=== PATIENT | female | born 1985 | race Caucasian/White ===

== ENCOUNTER 2020-10-03 07:11 | Outpatient (REF) | payer MEDICAID, SELFPAY | END 2020-10-03 07:12 | disposition home or self-care (01) | LOC: HO.LAB 07:11 | PROVIDERS: Visit Provider Internal Medicine | DX: Z20.828 Contact with and (suspected) exposure to other viral communicable diseases (principal) | CPT/HCPCS: C9803; U0003 ==

== ENCOUNTER 2023-07-08 10:00 | Outpatient (REF) | payer MEDICAID, SELFPAY | END 2023-07-08 10:01 | disposition home or self-care (01) | LOC: HO.HHCL 10:00 | PROVIDERS: Visit Provider Family Medicine | DX: Z00.00 Encounter for general adult medical examination without abnormal findings (principal); R19.7 Diarrhea, unspecified; Z11.3 Encounter for screening for infections with a predominantly sexual mode of transmission | CPT/HCPCS: 0353U; 80048; 80061; 80076; 86592; 86803; 87389 ==

== ENCOUNTER 2023-07-28 09:27 | Outpatient (REF) | payer MEDICAID, SELFPAY ==
[2023-07-28 15:31] LABS: CDiff Gene PCR NEGATIVE (Negative)
== END 2023-07-28 09:28 | disposition home or self-care (01) ==
LOC: HO.HHCLNP 09:27
PROVIDERS: Visit Provider Family Medicine
DX: R19.7 Diarrhea, unspecified (principal)
CPT/HCPCS: 87493

== ENCOUNTER 2025-01-05 10:37 | Emergency (ER) | payer MEDICAID, SELFPAY ==
[2025-01-05 10:52] VITALS: BP 113/77; PULSE 105; RESP 18; TEMP 37.2; O2SAT 99; BMI 25.0
--- NOTE | 2025-01-05 10:57 | ED_ITS ---
HPI - General Adult General Chief complaint: General Medical Stated complaint: Sore Throat W/ Abscess Time Seen by Provider: 01/05/25 12:18 Related Data Previous Rx's ?Medication ?Instructions ?Recorded clindamycin HCl 300 mg capsule 300 mg PO Q6H #40 caps 01/05/25 Allergies Allergy/AdvReac Type Severity Reaction Status Date / Time Penicillins [PENICILLINS] Allergy Unknown SWELLING/RA Verified 01/05/25 10:56 [facility] Social History Social History Smoked in Last 30 Days: No Use of substances other than those prescribed or required for medical reasons: No Advance Directives: No Advance Directives Information Provided: Yes Patient : No Physical Exam ED Vital Signs: Vital Signs - 24 hr 01/05/25 10:52 01/05/25 12:09 Temperature 99.0 F 98.1 F Pulse Rate 105 H 100 Respiratory Rate 18 20 Blood Pressure 113/77 134/75 Pulse Oximetry 99 100 Oxygen Delivery Method Room Air Room Air BMI result Body Mass Index 25.0 Course Course Course Narrative: RME performed by Yuliana Puente PA-C. Patient is a 39 year old assigned female at presenting to the emergency department with a sore throat, positive strep test, with left sided tonsilar swelling. Patient was seen in an urgent care and informed she has strep throat with unilateral tonsilar swelling that is causing voice muffeling. Detailed physical exam and review of systems are deferred to the child care associate teacher.Labs ordered. endoscopy tech aware - patient to be brought back [facility]. Medications Administered Discontinued Medications Generic Name Dose Route Start Last Admin Trade Name Mehreen PRN Reason Stop Dose Admin Dexamethasone Sodium Phosphate 10 mg 01/05/25 12:23 01/05/25 12:32 Dexamethasone Sod Phosphate 10 Mg/Ml Vial IVPUSH 01/05/25 12:24 10 mg ONCE ONE Administration Clindamycin Phosphate 300 mg in 50 mls @ 100 mls/hr 01/05/25 12:24 01/05/25 13:23 Cleocin IV 01/05/25 12:53 100 mls/hr ONCE ONE Administration Lidocaine HCl 1 appl 01/05/25 12:24 01/05/25 12:42 Lidocaine Hcl 4 % [id number]-G-Bfs 4 Ml TOPICAL 01/05/25 12:25 1 appl ONCE ONE Administration Medical Decision Making Lab Data 01/05/25 11:13 01/05/25 11:13 Labs: Lab Results 01/05/25 Range/Units 11:13 WBC 13.8 H (4.8-10.8) X10*3/uL RBC 3.95 L (4.20-5.50) X10*6/uL Hgb 12.8 (12.0-16.0) g/dl Hct 36.6 L (37.0-47.0) % MCV 92.7 (80.0-98.0) fL MCH 32.4 (27.0-33.0) pg MCHC 35.0 (31.0-35.0) g/dl RDW 12.8 (11.0-16.0) % Plt Count 249 (160-400) X10*3/uL MPV 10.2 (9.4-12.3) fL Immature Gran % (Auto) 0.6 H (0.0-0.4) % Neut % (Auto) 80.4 H (45-73) % Lymph % (Auto) 12.7 L (20-40) % [place] % (Auto) 5.4 (2-11) % Eos % (Auto) 0.4 (0-4) % Baso % (Auto) 0.5 (0-2) % Lymph # (Auto) 1.8 (1.2-4.9) X10*3/uL [place] # (Auto) 0.8 (0.1-1.2) X10*3/uL Eos # (Auto) 0.1 (0.0-0.4) X10*3/uL Baso # (Auto) 0.1 (0.0-0.2) X10*3/uL Abs Immat Gran (auto) 0.08 H (0.00-0.03) X10*3/uL Absolute Neuts (auto) 11.1 H (2.0-8.3) x10*3/uL Absolute Nucleated RBC 0.000 (0.0-0.012) X10*3/uL Nucleated RBC % (auto) 0.0 (0.0-0.2) /100WBC ESR 54 H (0-20) MM/HR Sodium 142 (135-145) mmol/L Potassium 3.3 (3.3-5.1) mmol/L Chloride 108 (96-108) mmol/L Carbon Dioxide 27 (22-29) mmol/L Anion Gap 10 L (12-20) BUN 8 L (9-16) mg/dL Creatinine 0.61 (0.5-1.4) mg/dL Estim Creat Clear Calc 117.0 Estimated GFR > 60 Random Glucose 90 (60-115) mg/dL Calcium 8.8 (8.4-10.2) mg/dL Magnesium 2.2 (1.6-2.6) mg/dL Total Bilirubin 0.4 (0.0-1.0) mg/dL AST 18 (5-31) U/L ALT 20 (0-31) U/L Alkaline Phosphatase 91 (39-117) U/L C-Reactive Protein 14.70 H (< or = 0.50) mg/dL Total Protein 7.0 (6.5-8.0) g/dL Albumin 3.6 (3.5-5.0) g/dL Beta HCG, Quant < 2 mIU/mL Discharge Plan Discharge Clinical Impression: Abscess, peritonsillar Patient Disposition: Home, Self-Care Instructions: Peritonsillar Abscess (DC), Abscess Incision and Drainage (DC) Prescriptions: New clindamycin HCl 300 mg capsule 300 mg PO Q6H Qty: 40 0RF Referrals: Markus Salvador MD [Physician] - 01/08/25 Print Language: Japanese
[2025-01-05 11:18] LABS: MANUAL DIFF FLAG NO
[2025-01-05 11:19] LABS: Basophils Absolute Auto 0.1 X10*3/uL (0.0-0.2); Basophils Percent Auto 0.5 % (0-2); Eosinophils Absolute Auto 0.1 X10*3/uL (0.0-0.4); Eosinophils Percent Auto 0.4 % (0-4); Hematocrit 36.6 % (37.0-47.0); Hemoglobin 12.8 g/dl (12.0-16.0); Imm Gran Abs Auto 0.08 X10*3/uL (0.00-0.03); Imm Gran Pct Auto 0.6 % (0.0-0.4); Lymphocytes Absolute Auto 1.8 X10*3/uL (1.2-4.9); Lymphocytes Percent Auto 12.7 % (20-40); Mean Corpuscular Hemoglobin 32.4 pg (27.0-33.0); Mean Corpuscular Volume 92.7 fL (80.0-98.0); Mean Platelet Volume 10.2 fL (9.4-12.3); Monocytes Absolute Auto 0.8 X10*3/uL (0.1-1.2); Monocytes Percent Auto 5.4 % (2-11); Neutrophils Absolute Auto 11.1 x10*3/uL (2.0-8.3); Neutrophils Percent Auto 80.4 % (45-73); Platelet Count 249 X10*3/uL (160-400); Red Blood Count 3.95 X10*6/uL (4.20-5.50); Red Cell Distribution Width 12.8 % (11.0-16.0); White Blood Count 13.8 X10*3/uL (4.8-10.8)
[2025-01-05 11:57] LABS: Erythrocyte Sedimentation Rate 54 MM/HR (0-20)
[2025-01-05 12:06] LABS: Alanine Aminotransferase 20 U/L (0-31); Albumin Level 3.6 g/dL (3.5-5.0); Alkaline Phosphatase 91 U/L (39-117); Anion Gap 10 (12-20); Aspartate Amino Transferase 18 U/L (5-31); Bilirubin Total 0.4 mg/dL (0.0-1.0); Blood Urea Nitrogen 8 mg/dL (9-16); Calcium 8.8 mg/dL (8.4-10.2); Carbon Dioxide 27 mmol/L (22-29); Chloride 108 mmol/L (96-108); Estimated Glomerular Filt Rate > 60; Glucose Random 90 mg/dL (60-115); Magnesium 2.2 mg/dL (1.6-2.6); Potassium 3.3 mmol/L (3.3-5.1); Sodium 142 mmol/L (135-145)
[2025-01-05 12:09] VITALS: BP 134/75; PULSE 100; RESP 20; TEMP 36.7; O2SAT 100
--- NOTE | 2025-01-05 12:22 | PC.NURSE ---
ASSUMED CARE OF PT, AIRWAY REMAINS PATENT AT THIS TIME. ONCOLOGY NURSE NAVIGATOR PARTIALLY OCCLUDING ON R SIDE, UVULA REMAINS MIDLINE. PT MAINTAINING SECRETIONS, RESP EVEN, NONLABOURED. DIFF, PAIN SWALLOWING. CALL MILIAN WITHIN REACH.
--- NOTE | 2025-01-05 12:26 | ED_ITS ---
HPI - General Adult General Chief complaint: General Medical Stated complaint: Sore Throat W/ Abscess Time Seen by Provider: 01/05/25 12:18 History of Present Illness HPI narrative: Patient is a 39-year-old female with a history of strep positive left peritonsillar abscess was seen in urgent care sent in for further evaluation handling own saliva no difficulty with speech able to swallow no shortness of breath. Patient has an allergy to penicillin where she swells up Related Data Previous Rx's ?Medication ?Instructions ?Recorded clindamycin HCl 300 mg capsule 300 mg PO Q6H #40 caps 01/05/25 Allergies Allergy/AdvReac Type Severity Reaction Status Date / Time Penicillins [PENICILLINS] Allergy Unknown SWELLING/RA Verified 01/05/25 10:56 [facility] Review of Systems 2 Review of Systems: Positive sore throat Yes all other systems are reviewed and are negative PMF Past Medical History Attestation statement: The following information was validated with the patient. Social History Social History Smoked in Last 30 Days: No Use of substances other than those prescribed or required for medical reasons: No Advance Directives: No Advance Directives Information Provided: Yes Patient : No Physical Exam ED Vital Signs: Vital Signs - 24 hr 01/05/25 10:52 01/05/25 12:09 Temperature 99.0 F 98.1 F Pulse Rate 105 H 100 Respiratory Rate 18 20 Blood Pressure 113/77 134/75 Pulse Oximetry 99 100 Oxygen Delivery Method Room Air Room Air BMI result Body Mass Index 25.0 Appearance: Alert. Oriented X3. No acute distress. Eyes: Pupils equal, round and reactive to light. ENT: significant swelling of the tonsil on the left side. Touching the uvula. No exudate noted. Neck: Normal inspection. Neck supple. No lymph nodes noted. No crepitus CVS: Normal heart rate and rhythm. Pulses normal. Normal S1 and S2 Respiratory: No respiratory distress. Breath sounds normal. No Wheezing. No rales Abdomen: Soft and nontender. No rigidity. No distention. good BS x4 Skin: Skin warm and dry. Normal skin color. Normal skin turgor. Extremities: No lower extremity edema. Neurovascular intact to all extremities. No Lacerations. No Rash Neuro: Oriented X 3. No motor deficit. No sensory deficit. Moving all extermities. No slurred speech Medications Administered Discontinued Medications Generic Name Dose Route Start Last Admin Trade Name Mehreen PRN Reason Stop Dose Admin Dexamethasone Sodium Phosphate 10 mg 01/05/25 12:23 01/05/25 12:32 Dexamethasone Sod Phosphate 10 Mg/Ml Vial IVPUSH 01/05/25 12:24 10 mg ONCE ONE Administration Clindamycin Phosphate 300 mg in 50 mls @ 100 mls/hr 01/05/25 12:24 01/05/25 13:23 Cleocin IV 01/05/25 12:53 100 mls/hr ONCE ONE Administration Lidocaine HCl 1 appl 01/05/25 12:24 01/05/25 12:42 Lidocaine Hcl 4 % Dtvaxv-S-Lam 4 Ml TOPICAL 01/05/25 12:25 1 appl ONCE ONE Administration Procedures Abscess I/D Site: other ( peritonsill) Side (if applicable): left Local Anesthetic: lidocaine 1% Technique: needle aspiration Amount of fluid expressed (mL): 4 Sent for culture/gram staining?: Yes Packing used?: none Medical Decision Making Medical Decision Making [facility] Narrative: patient is 39 years old sent in from urgent care for having a peritonsillar abscess. Tested positive for strep. Decadron was given. Patient is given clindamycin. I perform an needle aspiration of the abscess after lidocaine was used. There was about 4 cc of pus that was drained. Symptomatically patient feel improved. Patient's case was consulted with ENT from [facility]. Agreed to have patient follow-up on an outpatient basis okay with management using outpatient antibiotics clindamycin. Patient monitor further in the ED for another hour given IV fluids. Symptomatically feels improved. Will discharge patient home. In stable condition. Differential Diagnosis Differential Diagnoses: The differential diagnosis associated with the presentation includes Peritonsillar abscess Admission/Observation Consideration of admission/observation: Escalation of care including admission/observation considered considered for admission but patient is tolerating p.o. there is no shortness of breath there is no dizziness well-appearing has follow-up will discharge Consult Healthcare Provider Management of the patient was discussed with: Network Systems Engineer ( ENT at [facility]) Lab Data [facility] Lab Attestation statement: I reviewed the patient's lab results. 01/05/25 11:13 01/05/25 11:13 Labs: Lab Results 01/05/25 Range/Units 11:13 WBC 13.8 H (4.8-10.8) X10*3/uL RBC 3.95 L (4.20-5.50) X10*6/uL Hgb 12.8 (12.0-16.0) g/dl Hct 36.6 L (37.0-47.0) % MCV 92.7 (80.0-98.0) fL MCH 32.4 (27.0-33.0) pg MCHC 35.0 (31.0-35.0) g/dl RDW 12.8 (11.0-16.0) % Plt Count 249 (160-400) X10*3/uL MPV 10.2 (9.4-12.3) fL Immature Gran % (Auto) 0.6 H (0.0-0.4) % Neut % (Auto) 80.4 H (45-73) % Lymph % (Auto) 12.7 L (20-40) % [place] % (Auto) 5.4 (2-11) % Eos % (Auto) 0.4 (0-4) % Baso % (Auto) 0.5 (0-2) % Lymph # (Auto) 1.8 (1.2-4.9) X10*3/uL Millard # (Auto) 0.8 (0.1-1.2) X10*3/uL Eos # (Auto) 0.1 (0.0-0.4) X10*3/uL Baso # (Auto) 0.1 (0.0-0.2) X10*3/uL Abs Immat Gran (auto) 0.08 H (0.00-0.03) X10*3/uL Absolute Neuts (auto) 11.1 H (2.0-8.3) x10*3/uL Absolute Nucleated RBC 0.000 (0.0-0.012) X10*3/uL Nucleated RBC % (auto) 0.0 (0.0-0.2) /100WBC ESR 54 H (0-20) MM/HR Sodium 142 (135-145) mmol/L Potassium 3.3 (3.3-5.1) mmol/L Chloride 108 (96-108) mmol/L Carbon Dioxide 27 (22-29) mmol/L Anion Gap 10 L (12-20) BUN 8 L (9-16) mg/dL Creatinine 0.61 (0.5-1.4) mg/dL Estim Creat Clear Calc 117.0 Estimated GFR > 60 Random Glucose 90 (60-115) mg/dL Calcium 8.8 (8.4-10.2) mg/dL Magnesium 2.2 (1.6-2.6) mg/dL Total Bilirubin 0.4 (0.0-1.0) mg/dL AST 18 (5-31) U/L ALT 20 (0-31) U/L Alkaline Phosphatase 91 (39-117) U/L C-Reactive Protein 14.70 H (< or = 0.50) mg/dL Total Protein 7.0 (6.5-8.0) g/dL Albumin 3.6 (3.5-5.0) g/dL Beta HCG, Quant < 2 mIU/mL Discharge Plan Discharge Clinical Impression: Abscess, peritonsillar Patient Disposition: Home, Self-Care Instructions: Peritonsillar Abscess (DC), Abscess Incision and Drainage (DC) Prescriptions: New clindamycin HCl 300 mg capsule 300 mg PO Q6H Qty: 40 0RF Referrals: Markus Salvador MD [Physician] - 01/08/25 Print Language: Citizen [place]
[2025-01-05 12:29] LABS: HCG Quantitative < 2 mIU/mL
[2025-01-05] MEDS: dexAMETHasone sod phosphate 10 MG/ML VIAL IVPUSH (12:32)
[2025-01-05] MEDS: Lidocaine HCl 4 % Laryng-O-Jet 4 ML 1 APPL TOPICAL (12:42)
--- OUTSIDE RECORDS SUMMARY | 2025-01-05 13:12 | XMS_ITS | Encounter Summary ---
Author Organization [facility] Address [address] [place] [address] Care Team Providers Care Scrap Preparation Supervisor Name Role Phone Claudia Prieto MD Primary Care Provider [phone] Encounter Details Date Type Department Care Team (Late st Contact Info) Description 01/05/2025 Orders Only GENERIC EXTERNAL DATA DEPARTMENT Provider, Generic External Data Social History Tobacco Use Types Packs/Day Years Used Date Smoking Tobacco: Never Smokeless Tobacco: Never Alcohol Use Standard Drinks/Week Comments Defer 0 (1 standard drink = 0.6 oz pur e alcohol) Depression Answer Date Recorded Patient Health Questionnaire-9 Score 1 07/01/2023 Housing Stability Answer Date Recorded What is your housing situation today? I have emanuel rodriguez 07/28/[address] you li ve. Do you have problems with any of the following? None of the above 07/28/2023 Food Insecurity Answer Date Recorded Within the past 12 months, y ou worried that your food would run out before you got money to buy more: Never True 07/28/2023 Within the past 12 months,th e food you bought just didn't last and you didn't have enough money to get more: Never True Transportation Answer Date Recorded In the past 12 months, has l ack of transportation kept you from medical appts, meetings, work or from getting things needed for daily living? No 07/28/2023 Utilities Answer Date Recorded In the past 12 months, has t he electric, gas, oil or water company threatened to shut off services in your home? No 07/28/2023 Depression Answer Date Recorded Patient Health Questionnaire-2 Score 1 07/01/2023 Comments No Sex and Gender Information Value Date Recorded Sex Assigned at Female 08/03/2022 10:20 AM EDT Legal Sex Female 10:20 AM EDT Gender Identity Female 08/03/2022 10:20 AM EDT Sexual Orientation Straight 08/03/2022 10 :20 AM EDT documented as of this encounter Plan of Treatment Upcoming Encounters Date Type Department Care Team (Late st Contact Info) Description 01/19/2025 9:00 AM EDT Procedure Visit [facility] MEDICINE [address] [place] [address] Claudia Prieto MD [address] [place] [address] 03/08/2025 2:30 PM EDT Office Visit [facility] OPTOMETRY [address] [place] [address] BrittonAma morrison, OD [address] [place] [address] documented as of this encounter Procedures Procedure Name Priority Date/Time Associated Diagnosis Comments CBC WITH AUTO DIFFERENTIAL Routine 01/05/2025 11:13 AM EDT SED RATE BY MODIFIED WESTERGREN Routine 01/05/2025 11:13 AM EDT C-REACTIVE PROTEIN Routine 01/05/2025 11 :13 AM EDT HCG, TOTAL, QN Routine 01/05/2025 11:13 AM EDT MAGNESIUM Routine 01/05/2025 11:13 AM EDT COMPREHENSIVE METABOLIC PANEL Routine 01/05/2025 11:13 AM EDT documented in this encounter Results * hCG, Total, Quantitative (01/05/2025 11:13 AM EDT) HCG Quantitative <2 mIU/mL [facility] Comment:Weeks post LMP Appro ximate hCG(Last Menstrual Period) Range (mIU/ml)3 - 4 weeks 9 - 1304 - 5 weeks 75 - 2,6005 - 6 weeks 850 - 20,8006 - 7 weeks 4000 - 100,2007 - 12 weeks 11,500 - 289,81756 - 16 weeks 18,300 - 137,47166 - 29 weeks (2nd trimester) 1,400 - 53,71350 - 41 weeks (3rd trimester) 940 - 60,000The [place] B- hCG assay is used for the early detection ofpregnancy; it cannot be used to diagnose any conditionunrelated to . If a B-hCG level is not supportedby the clinical evidence, results should be confirmed by analternative method (qualitative urine hCG, for example). 01/05/2025 11:1 3 AM EDT 01/05/2025 11:16 AM EDT Generic External Data Provider LAB BLOOD ORDERAB LES Final Result Performing Organization Address [facility] Co de Phone Number [facility] [address] [place] [phone] * (ABNORMAL) C-reactive Protein (01/05/2025 11:13 AM EDT) C Reactive Protein 14.70(H) < or = 0.50 mg/dL [facility] 01/05/2025 11:1 3 AM EDT 01/05/2025 11:16 AM EDT Generic External Data Provider LAB BLOOD ORDERAB LES Final Result Performing Organization Address [facility]/ZIP Co de Phone Number [facility] [address] [place] [phone] * Magnesium (01/05/2025 11:13 AM EDT) Magnesium 2.2 1.6 - 2.6 mg/dL [facility] 01/05/2025 11:1 3 AM EDT 01/05/2025 11:16 AM EDT Generic External Data Provider LAB BLOOD ORDERAB LES Final Result [facility] [address] [place], [place] [phone] * (ABNORMAL) Comprehensive Metabolic Panel (01/05/2025 11:13 AM EDT) Sodium 142 135 - 145 mmol/L [facility] Potassium 3.3 3.3 - 5.1 mmol/L [facility] Chloride 108 96 - 108 mmol/L [facility] Carbon Dioxide 27 22 - 29 mmol/L [facility] Anion Gap 10(L) 12 - 20 [facility] Urea Nitrogen (BUN) 8(L) 9 - 16 mg/dL [facility] Creatinine, Serum 0.61 0.5 - 1.4 mg/dL [facility] Creatinine Clr Calc Pharmacy 117.0 [facility] Comment:Provided height and weight: 167.64 cm,70.2 kg.eGFR (calculated from the MDRD study equation) and eCrCl(calculated from the Cockcroft-Gault equation) are based ondifferent parameters and may not yield comparable results.If eCrCl result is absurd, please check patient'sheight/weight. Estimated Glomerular Filt Rate >60 [facility] Comment:Chronic Kidney Disea se: Estimated GFR < 60 mL/min/1.15m3Mpoazm Kidney Disease: Estimated GFR < 15 mL/min/1.73m2 Glucose 90 60 - 115 mg/dL [facility] Calcium 8.8 8.4 - 10.2 mg/dL [facility] Bilirubin, Total 0.4 0.0 - 1.0 mg/dL [facility] Aspartate Amino Transferase 18 5 - 31 U/L [facility] Alanine Aminotransferase 20 0 - 31 U/L [facility] Total Protein 7.0 6.5 - 8.0 g/dL [facility] Albumin Level 3.6 3.5 - 5.0 g/dL [facility] Alkaline Phosphatase 91 39 - 117 U/L [facility] 01/05/2025 11:1 3 AM EDT 01/05/2025 11:16 AM EDT us Generic External Data Provider LAB BLOOD ORDERAB LES Final Result Performing Organization Address [facility] Co de Phone Number [facility] [address] [place] [phone] * (ABNORMAL) Sed Rate by Modified Westergren (01/05/2025 11:13 AM EDT) [facility] Erythrocyte Sedimentation Rate 54(H) 0 - 20 MM/HR [facility] Comment:Patients with polycy themia and many hemoglobin abnormalitiesmay have depressed sed rates whereas patients with anemiamay have elevated sed rates. 01/05/2025 11:1 3 AM EDT 01/05/2025 11:16 AM EDT Generic External Data Provider LAB BLOOD ORDERAB LES Final Result Performing Organization Address [facility] de Phone Number [facility] [address] [place] [phone] * (ABNORMAL) CBC auto differential (01/05/2025 11:13 AM EDT) [facility] White Blood Count 13.8(H) 4.8 - 10.8 X10*3/uL [facility] Red Blood Count 3.95(L) 4.20 - 5.50 X10*6/uL [facility] Hemoglobin 12.8 12.0 - 16.0 g/dl [facility] Hematocrit 36.6(L) 37.0 - 47.0 % [facility] Mean Corpuscular Volume 92.7 80.0 - 98.0 fL [facility] Mean Corpuscular Hemoglobin 32.4 27.0 - 33.0 pg [facility] Mean Corpuscular HGB Conc 35.0 31.0 - 35.0 g/dl [facility] Red Cell Distribution Width 12.8 11.0 - 16.0 % [facility] Platelet Count 249 160 - 400 X10*3/uL [facility] Mean Platelet Volume 10.2 9.4 - 12.3 fL [facility] Neutrophils Percent Auto 80.4(H) 45 - 73 % [facility] Imm Gran Pct Auto 0.6(H) 0.0 - 0.4 % [facility] Lymphocytes Percent Auto 12.7(L) 20 - 40 % [facility] Monocytes Percent Auto 5.4 2 - 11 % [facility] Eosinophils Percent Auto 0.4 0 - 4 % [facility] Basophils Percent Auto 0.5 0 - 2 % [facility] NRBC Pct Auto 0.0 0.0 - 0.2 /100WBC [facility] Neutrophils Absolute Auto 11.1(H) 2.0 - 8.3 x10*3/uL [facility] Imm Gran Abs Auto 0.08(H) 0.00 - 0.03 X10*3/uL [facility] Lymphocytes Absolute Auto 1.8 1.2 - 4.9 X10*3/uL [facility] Monocytes Absolute Auto 0.8 0.1 - 1.2 X10*3/uL [facility] Eosinophils Absolute Auto 0.1 0.0 - 0.4 X10*3/uL [facility] Basophils Absolute Auto 0.1 0.0 - 0.2 X10*3/uL [facility] NRBC Abs Auto 0.000 0.0 - 0.012 X10*3/uL [facility] 01/05/2025 11:1 3 AM EDT 01/05/2025 11:16 AM EDT us Generic External Data Provider LAB BLOOD ORDERAB LES Final Result [facility] [address] [place] [phone] documented in this encounter Visit Diagnoses Not on filedocumented in this encounter Additional Health Concerns Assessment Noted Time PHQ-9 Depression Total Score: 1 07/01/20 23 9:58 AM EDT documented as of this encounter Care Teams Scrap Preparation Supervisor Relationship Specialty Start Date End Date Claudia Prieto MD [address] [place] [address] PCP - General Family Medicine 10/04/18 Ivis Medel, DO [address] [place] [phone] Gynecology 10/17/24 documented as of this encounter
--- OUTSIDE RECORDS SUMMARY | 2025-01-05 13:12 | XMS_ITS | Clinical Summary ---
Author Organization [facility] Address [address] [place] [address] Care Team Providers Care Compounder Flavorings Name Role Phone Leonardo Gagnon DO Primary Care Provider [phone] Surgical History Surgery Date Site/Laterality Comments ECTOPIC SURGERY Right PROCEDURE: HISTORICAL ECTOPIC SURGERY Family History Medical History Relation Name Comments Breast cancer Aunt Relation Name Status Comments Aunt Alive Social History Tobacco Use Types Packs/Day Years Used Date Smoking Tobacco: Never Smokeless Tobacco: Never Alcohol Use Standard Drinks/Week Comments Yes 0 (1 standard drink = 0.6 oz pur e alcohol) Comments Unknown Sex and Gender Information Value Date Recorded Sex Assigned at Not on file Legal Sex Female 8:57 PM EST Gender Identity Not on file Sexual Orientation Not on file Obstetrics History Plan of Treatment Health Maintenance Due Date Last Done Comments DTaP,Tdap,and Td Vaccines (1 - Tdap) 2005 Hepatitis B Vaccines (1 of 3 - 19+ 3-dose series) 2005 Cervical Cancer Screening: P ap Smear 12/12/2007 Depression Screening 10/29/2023 HIV Screening 10/29/2023 Hepatitis C Screening 10/29/2023 Social Influencers of Health Screening 10/29/2023 COVID-19 Vaccine ( - 2023-2 5 season) 2024 Influenza Vaccine (Season Ended) 2025 HIB Vaccines Aged Out No longer eligi ble based on patient's age to complete this topic HPV Vaccines Aged Out No longer eligi ble based on patient's age to complete this topic Hepatitis A Vaccines Aged Out No long er eligible based on patient's age to complete this topic IPV Vaccines Aged Out No longer eligi ble based on patient's age to complete this topic MMR Vaccines Aged Out No longer eligi ble based on patient's age to complete this topic Meningococcal ACWY Vaccine Aged Out N o longer eligible based on patient's age to complete this topic Meningococcal B Vacine Aged Out No lo nger eligible based on patient's age to complete this topic Pneumococcal Vaccine: Pediat rics (0 to 5 Years) and At-Risk Patients (6 to 64 Years) Aged Out No longer eligible b ased on patient's age to complete this topic RSV Immunization Patients Un helen 20 months Aged Out No longer eligible b ased on patient's age to complete this topic Varicella Vaccines Aged Out No longer eligible based on patient's age to complete this topic Care Teams Compounder Flavorings Relationship Specialty Start Date End Date Leonardo Gagnon DO [address] [id number] PCP - General 02/13/15
--- OUTSIDE RECORDS SUMMARY | 2025-01-05 13:12 | XMS_ITS | Encounter Summary ---
Author Organization [facility] Address [address] [place] [address] Care Team Providers Care Pick Up Attendant Name Role Phone Claudia Prieto MD Primary Care Provider [phone]- [phone] Encounter Details Date Type Department Care Team (Latest Contact Info) Description 02/11/2021 Abstract [facility] Dental, Provider, DDS Social History Tobacco Use Types Packs/Day Years Used Date Smoking Tobacco: Never Assessed Comments Unknown Sex and Gender Information Value [...] Description 01/19/2025 9:00 AM EDT Procedure Visit [facility] MEDICINE [address] [place] [address] Claudia Prieto MD [address] [place] [address] 03/08/2025 2:30 PM EDT Office Visit [facility] OPTOMETRY [address] [place] [address] Ama Jarquin OD [address] [place] [address] documented as of this encounter Visit Diagnoses Not on filedocumented in this encounter Care Teams Pick Up Attendant Relationship Specialty Start Date End Date Claudia Prieto MD [address] [place] [phone] PCP - General Family Medicine 10/04/18 Ivis Medel, [address] [address] Gynecology 10/17/24 documented as of this encounter
--- OUTSIDE RECORDS SUMMARY | 2025-01-05 13:12 | XMS_ITS | Encounter Summary ---
Author Organization [employer] [facility] Address [address] [place] [address] Care Team Providers Care Control Officer Name Role Phone Claudia Prieto MD Primary Care Provider +1- [phone] Encounter Details Date Type Department Care Team (Late Contact Info) Description 11/10/2022 Abstract [facility] MED[facility]INE [address] [place] [address] [phone] Claudia Prieto MD [address] [place] [address] [phone] Social History Tobacco Use Types Packs/Day Years [...] Orientation Straight 08/03/2022 10 :20 AM EDT COVID-19 Exposure Response Date Recorded In the last 10 days, have yo u been in contact with someone who was confirmed or suspected to have Coronavirus/COVID-19? No / Unsure 11/02/2022 4:00 PM EST documented as of this encounter Plan of Treatment Upcoming Encounters Date Type Department Care Team (Late Contact Info) Description 01/19/2025 9:00 AM EDT Procedure Visit [facility]INE [address] [place] [address] [phone] Claudia Prieto MD [address] [place], [place] [phone] 03/08/2025 2:30 PM EDT Office Visit [facility] [address] [place], [place] [phone] Ama Jarquin, OD [address] [place], [place] [phone] documented as of this encounter Procedures Procedure Name Priority Date/Time Associated Diagnosis Comments PAP SMEAR Routine 10/17/2019 12:00 AM EST documented in this encounter Results * Pap Smear (10/17/2019 12:00 AM EST) Swab us Historical Provider LAB CYTOLOGY ORDERABLES F inal Result IMAGING documented in this encounter Visit Diagnoses Not on filedocumented in this encounter Care Teams Control Officer Relationship Specialty Start Date End Date Claudia Prieto MD [address] [place], [place] [phone] PCP - General Family Medicine 10/04/18 Ivis Medel, [address] [place], [place] [phone] Gynecology 10/17/24 documented as of this encounter
--- OUTSIDE RECORDS SUMMARY | 2025-01-05 13:12 | XMS_ITS | Encounter Summary ---
Author Organization [employer] [facility] Address [address] [place] [address] Care Team Providers Care Party Plan Dealer Name Role Phone Claudia Prieto MD Primary Care Provider +1- [phone] Reason for Visit * Reason Comments Sore Throat Earache Encounter Details Date Type Department Care Team (Latest Contact Info) Description 01/05/2025 10:20 AM EDT Office Visit [facility] [address] [place] [address] [phone] Stephania Garcia MD [address] [place] [phone] Peritonsillar abscess determined by examination (Primary Dx); Sore throat; Dietary counseling; Exercise counseling Social History Tobacco Use Types Packs/Day Years Used Date Smoking Tobacco: Never Smokeless Tobacco: Never Tobacco Cessation:Counseling Given: Not Answered Alcohol Use Standard Drinks/Week Comments Defer 0 [...] AM EDT documented as of this encounter Last Filed Vital Signs Vital Sign Reading Time Taken Comments Blood Pressure 118/82 01/05/2025 10:04 AM EDT Pulse 105 01/05/2025 10:04 AM EDT Temperature 37.2 ??C (98.9 ??F) 01/05/2025 10:04 AM E DT Respiratory Rate 18 01/05/2025 10:04 AM EDT Oxygen Saturation 98% 01/05/2025 10:04 AM EDT Inhaled Oxygen Concentration - - Weight 70.5 kg (155 lb 6.4 oz) 01/05/2025 10:04 AM EDT Height 167.6 cm (5' 6 ) 01/05/2025 10:04 AM EDT Body Mass Index 25.08 01/05/2025 10:04 AM EDT documented in this encounter Plan of Treatment Upcoming Encounters Date Type Department Care Team (Late st Contact Info) Description 01/19/2025 9:00 AM EDT Procedure Visit [facility] [address] [place] [address] Claudia Prieto MD [address] [place] [address] 03/08/2025 2:30 PM EDT Office Visit [facility] [address] [place] [address] Ama Jarquin, OD [address] [place] [address] documented as of this encounter Procedures Procedure Name Priority Date/Time Associated Diagnosis Comments POCT INFLUENZA B (ID NOW RAPID MOLECULAR) Routine 01/05/2025 10:27 AM EDT Sore throat POCT INFLUENZA A (ID NOW RAPID MOLECULAR) Routine 01/05/2025 10:27 AM EDT Sore throat POCT RAPID COVID ANTIGEN Routine 01/05/2025 10:27 AM EDT Sore throat POCT RAPID STREP A Routine 01/05/2025 10 :27 AM EDT Sore throat documented in this encounter Results * (ABNORMAL) POCT rapid strep A manually resulted (01/05/2025 10:27 AM EDT) [facility] Rapid Strep A Screen Positive( A) Negative, None Detected QC Media Lot # [id number] Lot# Expiration Date Swab 01/05/2025 10:2 7 AM EDT Stephania Garcia MD POINT OF CARE TEST ENTER/EDIT ORDERABLES Final Result * POCT Rapid COVID Ag (01/05/2025 10:27 AM EDT) [facility] Rapid COVID Ag Negative QC Media Lot # [id number] Lot# Expiration Date Swab 01/05/2025 10:2 7 AM EDT Stephania Garcia MD POINT OF CARE TEST ENTER/EDIT ORDERABLES Final Result * Influenza A (ID NOW Rapid Molecular) (01/05/2025 10:27 AM EDT) [facility] Influenza A Negative Negative, Indeterminate [facility] QC Media Lot # [id number] [facility] Lot# Expiration Date , [facility] Swab 01/05/2025 10:2 7 AM EDT Stephania Garcia MD POINT OF CARE TEST ENTER/EDIT ORDERABLES Final Result Performing Organization Address City/[facility]/ZIP Co de Phone Number [facility] [address] [place] [address] [phone] * Influenza B (ID NOW Rapid Molecular) (01/05/2025 10:27 AM EDT) Influenza B Negative Negative, Indeterminate [facility] QC Media Lot # [id number] [facility] Lot# Expiration Date [id number] [facility] Swab 01/05/2025 10:2 7 AM EDT Stephania Garcia MD POINT OF CARE TEST ENTER/EDIT ORDERABLES Final Result Performing Organization Address [facility] Co de Phone Number [facility] [address] [place] [address] [phone] documented in this encounter Visit Diagnoses Diagnosis Peritonsillar abscess determined by examination- Primary Sore throat Acute pharyngitis Dietary counseling Dietary surveillance and counseling Exercise counseling documented in this encounter Additional Health Concerns Assessment Noted Time PHQ-9 Depression Total Score: 1 07/01/20 23 9:58 AM EDT documented as of this encounter Care Teams Party Plan Dealer Relationship Specialty Start Date End Date Claudia Prieto MD [address] [place] [phone] PCP - General Family Medicine 10/04/18 Ivis Medel, DO [address] [place] [phone] Gynecology 10/17/24 documented as of this encounter
--- OUTSIDE RECORDS SUMMARY | 2025-01-05 13:12 | XMS_ITS | Clinical Summary ---
Author Organization [employer] Address [address] [place] [address] Care Team Providers Care Cable Splicing Technician Name Role Phone Claudia Prieto MD Primary Care Provider [phone] Allergies Active Allergy Reactions Criticality Noted Date Comments Penicillins Rash Low 09/10/2022 Medications acetaminophen (Tylenol) 500 MG tabletIndication s:Dental caries Take 1 tablet (500 mg) by mouth every 6 (six) hours if needed for mild pain for up to 15 doses. 15 tablet 09/10/2022 Active ibuprofen 600 MG tabletIndication s:Dental caries Take 1 tablet (600 mg) by mouth every 6 (six) hours if needed for mild pain for up to 15 doses. 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 Seen by [facility] in ER and started on antibiotics with recommend follow up with [facility] as outpatient. 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 Referral for psychotherapy and psychiatry offered. -start fluoxetine 20mg po daily 07/23/16 -seen by [facility] to establish with therapist Assessment & Plan (06/24/2023 9:34 AM EDT): No suicidal or homicidal ideation. Referral for psychotherapy and psychiatry offered. -start fluoxetine 20mg po daily 07/23/16 -seen by [facility] to establish with therapist Gastroesophageal reflux disease 06/20/2012 Knee pain 06/20/2012 Resolved Problems Problem Noted Date Diagnosed Date Resolved Date Bacterial vaginosis 07/01/2023 10/17/19 25 Dental caries 09/10/2022 10/17/2024 Encounters Date Type Department Care Team Description 01/05/2025 10:20 AM EDT Office Visit [facility] [address] [place] [address] Stephania Garcia MD Peritonsillar abscess determined by examination (Primary Dx); Sore throat; Dietary counseling; Exercise counseling 01/05/2025 Orders Only GENERIC EXTERNAL DATA DEPARTMENT Provider, Generic External Data 12/27/2024 Population Health Risk Score [facility] Department [address] [place] [address] [phone] Provider, Population Health Generic 11/21/2024 Telephone [facility] [address] [place] [address] Claudia Prieto MD Appointment Confirmation (I book the appointment on 01/19/2025 at 9:00 am for PAP.) 11/21/2024 Travel 11/16/2024 Telephone [facility] [address] [place] [address] Claudia Prieto MD 11/10/2024 Telephone [facility] [address] [place] [address] Janae Maeir MA chartprep from Last 3 Months Immunizations Name Administration Dates Next Due Influenza injectable quadriv alent IIV4 with preservative 07/23/2016 Influenza injectable quadrivalent preservative f ree 07/01/2023,10/05/2019 Influenza, Split (incl. purified surface antigen ) 06/20/2012 Tdap 06/20/2012 Social History Tobacco Use Types Packs/Day Years [...] Orientation Straight 08/03/2022 10 :20 AM EDT Last Filed Vital Signs Vital Sign Reading [...] Mass Index 25.08 01/05/2025 10:04 AM EDT Plan of Treatment Upcoming Encounters Date Type Department Care Team (Late st Contact Info) Description 01/19/2025 9:00 AM EDT Procedure Visit [facility] [address] [place] [address] Claudia Prieto MD [address] [place] [address] 03/08/2025 2:30 PM EDT Office Visit [facility]OM[facility] [address] [place] [address] Ama Jarquin, OD [address] [place] [address] Health Maintenance Due Date Last Done Comments Dental Oral Exam 1986 Dental Prophylaxis 1986 Dental X-Ray: Bitewings 1986 Dental X-Ray: Full Mouth 1986 Alcohol/Substance Use Screening 1998 Hepatitis B Vaccines (1 of 3 - 19+ 3-dose series) 2005 DTaP/Tdap/Td Vaccines (2 - Td or Tdap) 06/20/2022 06/20/2012 COVID-19 Vaccine ( season) 2024 12/30/2021, 03/12/2021, 02/10/2021 Influenza Vaccine (#1) 2024 3, 10/05/2019, 07/23/2016, Additional history exists Depression Screening 07/01/2024 07/01/2023, 07/01/20 23 SDOH Screening 07/01/2024 07/01/2023 Cervical Cancer Screening 10/17/2024 HPV/Cotest 10/17/2024 10/05/2019 Pap Smear 10/17/2024 10/17/2019 Family Planning (PISQ) 02/21/2025 02/22/2024 Tobacco Screening 01/05/2026 01/05/2025 Zoster Vaccines (1 of 2) 2036 RSV Patients and Patients Aged 60 years or older (1 - 1-dose 75+ series) 2061 HIV Screening Completed 07/08/2023, 10/05/2019 Hepatitis C Screening Completed 07/08/2023, 020 HIB Vaccines Aged Out No longer eligi [...] patient's age to complete this topic Meningococcal Vaccine Aged Out No phyllis daria eligible based on patient's age to complete this topic Pneumococcal Vaccine: Pediatrics (0 to 5 Years) and At-Risk Patients (6 to 49) Years) Aged Out No longer eligible based on patient's age to complete this topic RSV under 20 months Aged Out No longe r eligible based on patient's age to complete this topic Rotavirus Vaccines Aged Out No longer eligible based on patient's age to complete this topic Procedures Procedure Name Priority Date/Time Associated Diagnosis Comments HCG, TOTAL, QN Routine 01/05/2025 11:13 AM EDT C-REACTIVE PROTEIN Routine 01/05/2025 11 :13 AM EDT MAGNESIUM Routine 01/05/2025 11:13 AM EDT COMPREHENSIVE METABOLIC PANEL Routine 01/05/2025 11:13 AM EDT SED RATE BY MODIFIED WESTERGREN Routine 01/05/2025 11:13 AM EDT CBC WITH AUTO DIFFERENTIAL Routine 01/05/2025 11:13 AM EDT POCT RAPID STREP A Routine 01/05/2025 10 :27 AM EDT Sore throat POCT RAPID COVID ANTIGEN Routine 01/05/2025 10:27 AM EDT Sore throat POCT INFLUENZA A (ID NOW RAPID MOLECULAR) Routine 01/05/2025 10:27 AM EDT Sore throat POCT INFLUENZA B (ID NOW RAPID MOLECULAR) Routine 01/05/2025 10:27 AM EDT Sore throat HEPATITIS C ANTIBODY Routine 07/08/2023 10:10 AM EDT Routine screening for STI (sexually transmitted infection) HIV ANTIBODY/ANTIGEN ([place] D[facility]) Routine 07/08/2023 10:10 AM EDT PAP SMEAR Routine 10/17/2019 12:00 AM EST ZZZ HISTORICAL HPV E6/E7 RFLX KELLY 16 18/45 Routine 10/05/2019 3:19 PM EST from Last 3 Months or Most Recently Relevant to Health Maintenance Results * (ABNORMAL) CBC auto differential (01/05/2025 11:13 AM EDT) White Blood Count 13.8(H) 4.8 - 10.8 X10*3/uL [facility] Red Blood Count 3.95(L) 4.20 - 5.50 X10*6/uL [facility] Hemoglobin 12.8 12.0 - 16.0 g/dl [facility] Hematocrit 36.6(L) 37.0 - 47.0 % [facility] Mean Corpuscular Volume 92.7 80.0 - 98.0 fL [facility] Mean Corpuscular Hemoglobin 32.4 27.0 - 33.0 pg [facility] Mean Corpuscular HGB Conc 35.0 31.0 - 35.0 g/dl [facility] Red Cell Distribution Width 12.8 11.0 - 16.0 % [facility] Platelet Count 249 160 - 400 X10*3/uL [facility] Mean Platelet Volume 10.2 9.4 - 12.3 fL [facility] Neutrophils Percent Auto 80.4(H) 45 - 73 % [facility] Imm Gran Pct Auto 0.6(H) 0.0 - 0.4 % [facility] Lymphocytes Percent Auto 12.7(L) 20 - 40 % [facility] Monocytes Percent Auto 5.4 2 - 11 % [facility] Eosinophils Percent Auto 0.4 0 - 4 % [facility] Basophils Percent Auto 0.5 0 - 2 % [facility] NRBC Pct Auto 0.0 0.0 - 0.2 /100WBC [facility] Neutrophils Absolute Auto 11.1(H) 2.0 - 8.3 x10*3/uL [facility] Imm Gran Abs Auto 0.08(H) 0.00 - 0.03 X10*3/uL [facility] Lymphocytes Absolute Auto 1.8 1.2 - 4.9 X10*3/uL [facility] Monocytes Absolute Auto 0.8 0.1 - 1.2 X10*3/uL [facility] Eosinophils Absolute Auto 0.1 0.0 - 0.4 X10*3/uL [facility] Basophils Absolute Auto 0.1 0.0 - 0.2 X10*3/uL [facility] NRBC Abs Auto 0.000 0.0 - 0.012 X10*3/uL [facility] 01/05/2025 11:1 3 AM EDT 01/05/2025 11:16 AM EDT us Generic External Data Provider LAB BLOOD ORDERAB LES Final Result [facility] [address] [place] [address] [phone] * (ABNORMAL) Sed Rate by Modified Danieergren (01/05/2025 11:13 AM EDT) Erythrocyte Sedimentation Rate 54(H) 0 - 20 MM/HR [facility] Comment:Patients with polycy themia and many hemoglobin abnormalitiesmay have depressed sed rates whereas patients with anemiamay have elevated sed rates. 01/05/2025 11:1 3 AM EDT 01/05/2025 11:16 AM EDT Generic External Data Provider LAB BLOOD ORDERAB LES Final Result Performing Organization Address [facility]/ZIP Co de Phone Number [facility] [address] [place] [phone] * (ABNORMAL) C-reactive Protein (01/05/2025 11:13 AM EDT) Pathologist [facility] C Reactive Protein 14.70(H) < or = 0.50 mg/dL [facility] 01/05/2025 11:1 3 AM EDT 01/05/2025 11:16 AM EDT Generic External Data Provider LAB BLOOD ORDERAB LES Final Result Performing Organization Address [facility] Co de Phone Number [facility] [address] [place] [phone] * hCG, Total, Quantitative (01/05/2025 11:13 AM EDT) HCG Quantitative <2 mIU/mL [facility] Comment:Weeks post LMP Appro ximate hCG(Last Menstrual Period) Range (mIU/ml)3 - 4 weeks 9 - 1304 - 5 weeks 75 - 2,6005 - 6 weeks 850 - 20,8006 - 7 weeks 4000 - 100,2007 - 12 weeks 11,500 - 289,81346 - 16 weeks 18,300 - 137,53310 - 29 weeks (2nd trimester) 1,400 - 53,58214 - 41 weeks (3rd trimester) 940 - [...] ORDERAB LES Final Result Performing Organization Address [facility] Co de Phone Number [facility] [address] [place] [phone] * Magnesium (01/05/2025 11:13 AM EDT) Pathologist [facility] Magnesium 2.2 1.6 - 2.6 mg/dL [facility] 01/05/2025 11:1 3 AM EDT 01/05/2025 11:16 AM EDT Generic External Data Provider LAB BLOOD ORDERAB LES Final Result Performing Organization Address [facility] de Phone Number [facility] [address] [place] [phone] * (ABNORMAL) Comprehensive Metabolic Panel (01/05/2025 11:13 AM EDT) Sodium 142 135 - 145 mmol/L [facility] Potassium 3.3 3.3 - 5.1 mmol/L [facility] Chloride 108 96 - 108 mmol/L [facility] Carbon Dioxide 27 22 - 29 mmol/L [facility] Anion Gap 10(L) 12 - 20 [facility] Urea Nitrogen (BUN) 8(L) 9 - 16 mg/dL [facility] Creatinine, Serum 0.61 0.5 - 1.4 mg/dL [facility] Creatinine Clr Calc Pharmacy 117.0 [facility] Comment:Provided height and weight: 167.64 cm,70.2 kg.eGFR (calculated from the MDRD study equation) and eCrCl(calculated from the Cockcroft-Gault equation) are based ondifferent parameters and may not yield comparable results.If eCrCl result is absurd, please check patient'sheight/weight. Estimated Glomerular Filt Rate >60 [facility] Comment:Chronic Kidney Disea se: Estimated GFR < 60 mL/min/1.74w0Sxfvtr Kidney Disease: Estimated GFR < 15 mL/min/1.73m2 Glucose 90 60 - 115 mg/dL [facility] Calcium 8.8 8.4 - 10.2 mg/dL [facility] Bilirubin, Total 0.4 0.0 - 1.0 mg/dL [facility] Aspartate Amino Transferase 18 5 - 31 U/L [facility] Alanine Aminotransferase 20 0 - 31 U/L [facility] Total Protein 7.0 6.5 - 8.0 g/dL [facility] Albumin Level 3.6 3.5 - 5.0 g/dL [facility] Alkaline Phosphatase 91 39 - 117 U/L [facility] 01/05/2025 11:1 3 AM EDT 01/05/2025 11:16 AM EDT us Generic External Data Provider LAB BLOOD ORDERAB LES Final Result Performing Organization Address [facility]/ZIP Co de Phone Number [facility] [address] [place] [phone] * Influenza B (ID NOW Rapid Molecular) (01/05/2025 10:27 AM EDT) Influenza B Negative Negative, Indeterminate [facility] QC Media Lot # [id number] [facility] Lot# Expiration Date [id number] [facility] Swab 01/05/2025 10:2 7 AM EDT us Stephania Garcia MD POINT OF CARE TEST ENTER/EDIT ORDERABLES Final Result Performing Organization Address [facility] Co de Phone Number [facility] [address] [place] [phone] * Influenza A (ID NOW Rapid Molecular) (01/05/2025 10:27 AM EDT) [facility] Influenza A Negative Negative, Indeterminate [facility] QC Media Lot # [id number] [facility] Lot# Expiration Date 20, [facility] Swab 01/05/2025 10:2 7 AM EDT Stephania Garcia MD POINT OF CARE TEST ENTER/EDIT ORDERABLES Final Result [facility] [address] [place] [phone] * POCT Rapid COVID Ag (01/05/2025 10:27 AM EDT) [facility] Rapid COVID Ag Negative QC Media Lot # [id number] Lot# Expiration Date Swab 01/05/2025 10:2 7 AM EDT Stephania Garcia MD POINT OF CARE TEST ENTER/EDIT ORDERABLES Final Result * (ABNORMAL) POCT rapid strep A manually resulted (01/05/2025 10:27 AM EDT) [facility] Rapid Strep A Screen Positive( A) Negative, None Detected QC Media Lot # [id number] Lot# Expiration Date , Swab 01/05/2025 10:2 7 AM EDT Stephania Garcia MD POINT OF CARE TEST ENTER/EDIT ORDERABLES Final Result * Hepatitis C Ab (07/08/2023 10:10 AM EDT) [facility] Hepatitis C Antibody Nonreactive Nonreactive [facility] Comment:Antibodies to HCV no t detected; does not exclude early acuteHCV infection. Blood 07/08/2023 10:1 0 AM EDT 07/08/2023 11:27 AM EDT Claudia Prieto MD LAB BLOOD ORDERABLES Final Result Performing Organization Address [facility]/ZIP Co de Phone Number [facility] [address] [place] [phone] * HIV Ab/Ag (TN DP) (07/08/2023 10:10 AM EDT) HIV AB/AG Nonreactive Nonreactive [facility] Comment:HIV-1 p24 Ag and/or HIV-1/HIV-2 Ab not detected.A test result that is nonreactive does not exclude thepossibility of exposure to or infection with HIV-1 and/orHIV-2. Nonreactive results in this assay for individualswith prior exposure to HIV-1 and/or HIV-2 may be due toantigen and antibody levels that are below the limit ofdetection of this assay.The [employer] HIV Ag/Ab Combo assay result andsupplemental assay results should be interpreted inconjunction with the patient's clinical presentation,history and other laboratory results. If the results areinconsistent with clinical evidence, additional testing issuggested to confirm the result. 07/08/2023 10:1 0 AM EDT 07/08/2023 11:27 AM EDT Claudia Prieto MD LAB BLOOD ORDERABLES Final Result Performing Organization Address [facility] Co de Phone Number [facility] [address] [place] [phone] * Pap Smear (10/17/2019 12:00 AM EST) Swab Historical Provider LAB CYTOLOGY ORDERABLES F inal Result Performing Organization Address City/[facility]/ZIP Co de Phone Number IMAGING * HPV E6/E7 RFLX KELLY 16 18/45 (10/05/2019 3:19 PM EST) ADDITIONAL TESTING Not indicated () [facility] Comment: Test Performed by [facility], [facility], [address] [place], [place] Jaya Melgar M.D., Ph.D., Director of Laboratories , [place] [id number] HPV 16 RNA Test not performed [facility] HPV 18/45 RNA Test not performed [facility] HPV mRNA E6/E7 Not Detected NOT DETECTED [facility] Comment: This test was performed using the APTIMA(R) HPV Assay ([employer] This assay detects E6/E7 viral messenger RNA (mRNA) from 14 high-risk HPV types (16,18,31,33,35,39,45,51, 52,56,58,59,66,68). For additional information please refer to: http://education.[employer]/faq/JTF128e7 (This link is being provided for informational/ educational purposes only.) The analytical performance characteristics of this assay have been determined by [facility] [place], [place]. The modifications have not been cleared or approved by the FDA. This assay has been validated pursuant to the CLIA regulations and is used for clinical purposes. Please note: ??Effective 06/15/2016, HPV testing will be performed using [employer]'s APTIMA test which targets mRNA. Detecting mRNA instead of DNA, as in older methods, offers significant improvements in specificity. 10/05/2019 3:19 PM EST us Claudia Prieto MD HISTORICAL/NON ORDERABLE L ABS Final Result [facility] [address] from Last 3 Months or Most Recently Relevant to Health Maintenance Insurance [facility] C3 Care Teams Cable Splicing Technician Relationship Specialty Start Date End Date [place], [place] Claudia [address] [place] [address] [phone] PCP - General Family Medicine 10/04/18 Ivis Medel, DO [address] [place] [address] Gynecology 10/17/24
[2025-01-05] MEDS: Clindamycin Phosphate/D5W 300 MG/50 ML PIGGYBACK 100 MG IV (13:23)
[2025-01-05 14:33] VITALS: BP 106/68; PULSE 87; RESP 14; TEMP 36.9; O2SAT 96
[2025-01-05 14:48] VITALS: BP 106/68; PULSE 87; RESP 14; TEMP 36.9; O2SAT 96
== END 2025-01-05 14:49 | disposition home or self-care (01) ==
PROVIDERS: Physician Assistant Medical; Emergency Provider Emergency Medicine Emergency Medical Services; PCP Family Medicine
DX: J36 Peritonsillar abscess (principal); J02.0 Streptococcal pharyngitis; Z79.899 Other long term (current) drug therapy
CPT/HCPCS: 36415; 42700; 80053; 83735; 84702; 85025; 85652; 86140; 87070; 87147; 87186; 96365; 96375; 99284; J0736; J1100

== ENCOUNTER 2025-01-19 | Outpatient (REF) | payer MEDICAID, SELFPAY ==
[2025-01-23 15:33] LABS: CT PCR NOT DETECTED (Not Detect.); NG PCR NOT DETECTED (Not Detect.)
--- OUTSIDE RECORDS SUMMARY | 2025-01-23 16:37 | XMS_ITS | Encounter Summary ---
Author Organization [employer] Address [address] [place] [address] Care Team Providers Care Pipeline Executive Name Role Phone Claudia Prieto MD Primary Care Provider [phone] Encounter Details Date Type Department Care Team [...] Description 03/08/2025 2:30 PM EDT Office Visit [facility] [address] [place], [place] [phone] Britton, Megan, OD [address] [place] [address] documented as of this encounter Visit Diagnoses Not on filedocumented in this encounter Additional Health Concerns Assessment Noted Time PHQ-9 Depression Total Score: 0 01/20/20 25 9:12 AM EDT documented as of this encounter Care Teams Pipeline Executive Relationship Specialty Start Date End Date Claudia Prieto MD [address] [place] [address] PCP - General Family Medicine 10/04/18 Ivis Medel, DO [address] [place] [address] Gynecology 10/17/24 documented as of this encounter
--- OUTSIDE RECORDS SUMMARY | 2025-01-23 16:37 | XMS_ITS | Clinical Summary ---
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 15 tablet 09/10/20 22 Active ibuprofen 600 MG tabletIndicati ons:Dental caries Take 1 tablet (600 mg) by mouth every 6 (six) hours if needed for mild pain for up to 15 doses. 15 tablet 09/10/20 22 Active ibuprofen 600 MG tabletIndicati ons:Menorrhagi a with regular cycle Take 1 tablet (600 mg) by mouth every 8 (eight) hours if needed for moderate pain or fever. 30 tablet 01/21/20 25 025 Active cholecalcifero l (Vitamin D-3) 25 MCG (1000 UT) tabletIndicati ons:Vitamin D Deficiency Take 1 tablet (25 mcg) by mouth Once per day. 90 tablet 3 01/21/20 25 026 Active ibuprofen 600 MG tabletIndicati ons:Menorrhagi a with regular cycle Take 1 tablet (600 mg) by mouth every 8 (eight) hours if needed for moderate pain or fever. 30 tablet 01/20/20 25 025 Discontinued(Re order (will not trigger notification to Pharmacy)) cholecalcifero l (Vitamin D-3) 25 MCG (1000 UT) tabletIndicati ons:Vitamin D Deficiency Take 1 tablet (25 mcg) by mouth Once per day. 90 tablet 3 01/20/20 25 025 Discontinued(Re order (will not trigger notification to Pharmacy)) Active Problems Problem Noted Date Diagnosed Date History of peritonsillar abscess 01/19/2025 Overview (01/19/2025): Seen in [facility] 01/[facility]25 for significant peritonsillar abscess, with trismus and uvula shift. Sent to [facility], treated with abx. Vitamin D deficiency 01/19/2025 Overview (01/19/2025): No results found for: [id number] -ordered Vit D level 01/19/25 Assessment & [...] Pap smear for cervical cancer screening 11/16/19 Overview (01/19/2025): 10/17/2019 NILM, HPV- 01/19/25 Pap [...] with left tubo ovarian abscess. Seen by [facility] in ER and started on antibiotics with recommend follow up with [facility] [employer] as outpatient. Pelvic US IMPRESSION: A complex [...] due after 01/19/26 -eye care facilitated by [facility] -dental home is [facility] care proxy filed 01/19/25 Assessment & Plan (01/19/2025 9:33 AM EDT): -next comprehensive annual evaluation due after 01/19/26 -eye care facilitated by [facility] -dental home is [facility] care proxy filed 01/19/25 Assessment & Plan (07/01/2023 10:21 AM EDT): -next physical exam due after 07/01/2024 -eye care facilitated by -dental home is [facility] 06/20/2012 Depressive disorder 06/20/2012 Overview (06/24/2023): No suicidal or homicidal ideation. Referral for psychotherapy and psychiatry offered. -start fluoxetine 20mg po daily 07/23/16 -seen by [facility] to establish with therapist Assessment & Plan (01/19/2025 9:50 AM EDT): No suicidal or homicidal ideation. Referral for psychotherapy and psychiatry offered. -start fluoxetine 20mg po daily 07/23/16 -seen by [facility] to establish with therapist Assessment & Plan (06/24/2023 9:34 AM EDT): No suicidal or homicidal ideation. Referral for psychotherapy and psychiatry offered. -start fluoxetine 20mg po daily 07/23/16 -seen by [facility] to establish with therapist Gastroesophageal reflux disease 06/20/2012 Knee pain 06/20/2012 Resolved Problems Problem Noted Date Diagnosed Date Resolved Date Bacterial vaginosis 07/01/2023 10/17/19 25 Dental caries 09/10/2022 10/17/2024 Encounters Date Type Department Care Team Description 01/23/2025 Telephone [facility] [address] [place] [phone] Claudia Prieto MD Lab Orders 01/19/2025 9:00 AM EDT Procedure Visit [facility] [address] [place] [address] Claudia Prieto MD Dyslipidemia (Primary Dx); Vitamin D deficiency; Depressive disorder; Menorrhagia with regular cycle; Pap smear for cervical cancer screening; Routine screening for STI (sexually transmitted infection); Encounter for immunization; Other specified health status 01/19/2025 Refill [facility] [address] [place] [phone] Claudia Prieto MD Menorrhagia with regular cycle; Vitamin D deficiency 01/19/2025 Orders Only [address] [address] Claudia Prieto MD Vitamin D deficiency (Primary Dx) 01/19/2025 Travel 01/17/[address] [address] Claudia Prieto MD chartprep 01/08/[address] [address] Claudia Prieto MD Results; Medication Question 01/05/2025 10:20 AM EDT Office Visit [facility] [address] [place] [phone] Stephania Garcia MD Peritonsillar abscess determined by examination (Primary Dx); Sore throat; Dietary counseling; Exercise counseling 01/05/2025 Orders Only GENERIC EXTERNAL DATA DEPARTMENT Provider, Generic External Data 12/27/2024 Population Health Risk Score [facility] ([facility]) Department [address] [place] [address] [phone] Provider, Population Health Generic 11/21/[address] [address] Claudia Prieto MD Appointment Confirmation (I book the appointment on 01/19/2025 at 9:00 am for PAP.) 11/21/2024 Travel 11/16/[address] [address] Claudia Prieto MD 11/10/[address] [address] Janae Maier MA chartprep from Last 3 [...] is your housing situation today? I have emanuelleeann rodriguez 01/19/[address] you [...] the past 12 months, has t he [employer], gas, oil or water company threatened to [...] Description 03/08/2025 2:30 PM EDT Office Visit [facility] [address] [place] [address] Britton, Ama, OD [address] [place] [address] Health Maintenance Due Date Last Done Comments [...] 01/19/2026 01/19/2025 Depression Screening 01/19/2026 01/19/2025, 01/20/20 Family Planning (PISQ) 01/19/2026 01/19/2025 SDOH Screening 01/19/2026 01/19/2025 Tobacco Screening 01/19/2026 01/19/2025 DTaP/Tdap/Td Vaccines (3 - Td or Tdap) 01/19/2035 01/19/2025, 06/20/2012 Zoster Vaccines (1 of 2) 2036 RSV Patients and Patients Aged 60 years or older (1 - 1-dose 75+ series) 2061 COVID-19 Vaccine Completed 01/19/2025, , 03/12/2021, Additional history exists HIV Screening Completed 01/19/2025, 02/2023, 10/05/2019 Hepatitis C Screening Completed 01/19/2025 , 07/08/2023, 10/05/2019 HIB Vaccines Aged Out No longer eligi [...] Procedure Name Priority Date/Time Associated Diagnosis Comments HEPATITIS C AB W/REFL TO HCV RNA, QN, PCR Routine 01/19/2025 9:57 AM EDT Routine screening for STI (sexually transmitted infection) IRON AND TOTAL IRON BINDING CAPACITY Routine 01/19/2025 9:57 AM EDT Menorrhagia with regular cycle FERRITIN Routine 01/19/2025 9:57 AM EDT Menorrhagia with regular cycle SYPHILIS SCREEN Routine 01/19/2025 9:57 AM EDT Routine screening for STI (sexually transmitted infection) HIV 1/2 ANTIGEN/ANTIBODY, FOURTH GENERATION W/RFL Routine 01/19/2025 9:57 AM EDT Routine screening for STI (sexually transmitted infection) VITAMIN D,25-OH,TOTAL,IA Routine 01/19/2025 9:57 AM EDT Vitamin D deficiency CBC WITH AUTO DIFFERENTIAL Routine 01/19/2025 9:57 AM EDT Encounter for immunization BASIC METABOLIC PANEL Routine 01/19/2025 9:57 AM EDT Dyslipidemia LIPID PANEL, STANDARD Routine 01/19/2025 9:57 AM EDT Dyslipidemia HEPATIC FUNCTION PANEL Routine 01/19/2025 9:57 AM EDT Dyslipidemia CHLAMYDIA/N. GONORRHOEAE RNA, TMA, UROGENITAL Routine 01/19/2025 12:00 AM EDT Routine screening for STI (sexually transmitted infection) GRAM STAIN Routine 01/05/2025 12:57 PM EDT [...] Routine 01/05/2025 10:27 AM EDT Sore throat PAP SMEAR Routine 10/17/2019 12:00 AM EST ZZZ HISTORICAL HPV E6/E7 RFLX KELLY 16 18/45 Routine 10/05/2019 3:19 PM EST from Last 3 Months or Most Recently Relevant to Health Maintenance Results * Syphilis Screen (01/19/2025 9:57 AM EDT) Syphilis Screen Nonreactive Nonreactive [facility] Blood Venous blood specimen / Unknown 01/19/2025 9:57 AM EDT 01/19/2025 11:05 AM EDT us Claudia Prieto MD LAB BLOOD ORDERABLES Final Result [facility] [address] [place] [address] [phone] * (ABNORMAL) Vitamin D, 25-Hydroxy, Total, Immunoassay (01/19/2025 9:57 AM EDT) Vitamin D 25-OH Total 28.9(L) >30 ng/mL [facility] Comment: Health Based Reference Values*< 20 ??ng/mL ??Mglqabrex65-79 ng/mL ??Insufficient> 30 ??ng/mL ??Sufficient*Merlin VASQUEZ. N Engl J Med. 2007;357:266-280There is no well-established upper level of normal vitamin Dlevels. Some laboratories use 50 ng/mL as an upper limit ofnormal. However, toxicity is patient-dependent and may occurat any level. Careful correlation with the patient'spresentation is necessary and, if there is concern forvitamin D toxicity, treatment should be consideredirrespective of the serum level.Care must be taken in interpreting Vitamin D results fromdifferent laboratories and methodologies. ??Published datademonstrated that results from patients undergoinghemodialysis may show a negative bias when tested withvarious automated 25-OH vitamin D assays when compared toLC- MS/MS.When testing samples from patients whose predominant form ofVitamin D is Vitamin D2, such as patients receiving VitaminD2 supplementation, results that are subtherapeutic shouldbe confirmed with another method such as LC-MS/MS. Blood 01/19/2025 9:57 AM EDT 01/19/2025 11:17 AM EDT us Claudia Prieto MD LAB BLOOD ORDERABLES Final Result [facility] [address] [place] [phone] * (ABNORMAL) CBC auto differential (01/19/2025 9:57 AM EDT) Only the most recent of2 resultswithin the time period is included. White Blood Count 6.7 4.8 - 10.8 X10*3/uL [facility] Red Blood Count 4.00(L) 4.20 - 5.50 X10*6/uL [facility] Hemoglobin 12.8 12.0 - 16.0 g/dl [facility] Hematocrit 38.1 37.0 - 47.0 % [facility] Mean Corpuscular Volume 95.3 80.0 - 98.0 fL [facility] Mean Corpuscular Hemoglobin 32.0 27.0 - 33.0 pg [facility] Mean Corpuscular HGB Conc 33.6 31.0 - 35.0 g/dl [facility] Red Cell Distribution Width 12.5 11.0 - 16.0 % [facility] Platelet Count 308 160 - 400 X10*3/uL [facility] Mean Platelet Volume 11.2 9.4 - 12.3 fL [facility] Neutrophils Percent Auto 67.7 45 - 73 % [facility] Imm Gran Pct Auto 0.4 0.0 - 0.4 % [facility] Lymphocytes Percent Auto 25.8 20 - 40 % [facility] Monocytes Percent Auto 4.5 2 - 11 % [facility] Eosinophils Percent Auto 1.0 0 - 4 % [facility] Basophils Percent Auto 0.6 0 - 2 % [facility] NRBC Pct Auto 0.0 0.0 - 0.2 /100WBC [facility] Neutrophils Absolute Auto 4.5 2.0 - 8.3 x10*3/uL [facility] Imm Gran Abs Auto 0.03 0.00 - 0.03 X10*3/uL [facility] Lymphocytes Absolute Auto 1.7 1.2 - 4.9 X10*3/uL [facility] Monocytes Absolute Auto 0.3 0.1 - 1.2 X10*3/uL [facility] Eosinophils Absolute Auto 0.1 0.0 - 0.4 X10*3/uL [facility] Basophils Absolute Auto 0.0 0.0 - 0.2 X10*3/uL [facility] NRBC Abs Auto 0.000 0.0 - 0.012 X10*3/uL [facility] Blood Venous blood specimen / Unknown 01/19/2025 9:57 AM EDT 01/19/2025 11:17 AM EDT Claudia Prieto MD LAB BLOOD ORDERABLES Final Result [facility] [address] [place] [phone] * Hepatitis C Antibody with Reflex to HCV, RNA, Quantitative, Real-Time PCR (01/19/2025 9:57 AM EDT) Hepatitis C Antibody Nonreactive Nonreactive [facility] Comment:Antibodies to HCV no t detected; does not exclude early acuteHCV infection. Blood Venous blood specimen / Unknown 01/19/2025 9:57 AM EDT 01/19/2025 11:05 AM EDT Claudia Prieto MD LAB BLOOD ORDERABLES Final Result Performing Organization Address [facility]/ZIP Co de Phone Number [facility] [address] [place] [phone] * Iron And Total Iron Binding Capacity (01/19/2025 9:57 AM EDT) Pathologist [facility] Iron 61 30 - 160 mcg/dL [facility] Total Iron Binding Capacity 272 228 - 428 mcg/dL [facility] Percent Iron Saturation 22 15 - 50 % [facility] Unsaturated Iron Binding 211 ug/dL [facility] Blood Venous blood specimen / Unknown 01/19/2025 9:57 AM EDT 01/19/2025 11:17 AM EDT Claudia Prieto MD LAB BLOOD ORDERABLES Final Result Performing Organization Address [facility] de Phone Number [facility] [address] [place] [phone] * HIV-1/2 Antigen and Antibodies, Fourth Generation, with Reflexes (01/19/2025 9:57 AM EDT) [facility] HIV AB/AG Nonreactive Nonreactive [facility] Comment:HIV-1 p24 Ag and/or HIV-1/HIV-2 Ab not detected.A test result that is nonreactive does not exclude thepossibility of exposure to or infection with HIV-1 and/orHIV-2. Nonreactive results in this assay for individualswith prior exposure to HIV-1 and/or HIV-2 may be due toantigen and antibody levels that are below the limit ofdetection of this assay.The [employer] HIV Ag/Ab Combo assay result andsupplemental assay results should be interpreted inconjunction with the patient's clinical presentation,history and other laboratory results. If the results areinconsistent with clinical evidence, additional testing issuggested to confirm the result. Blood Venous blood specimen / Unknown 01/19/2025 9:57 AM EDT 01/19/2025 11:05 AM EDT Claudia Prieto MD LAB BLOOD ORDERABLES Final Result Performing Organization Address [facility]/ZIP Co de Phone Number [facility] [address] [place] [phone] * Ferritin (01/19/2025 9:57 AM EDT) Ferritin 67 10 - 122 ng/mL [facility] Blood Venous blood specimen / Unknown 01/19/2025 9:57 AM EDT 01/19/2025 11:17 AM EDT Claudia Prieto MD LAB BLOOD ORDERABLES Final Result Performing Organization Address [facility] Co de Phone Number [facility] [address] [place] [phone] * Hepatic Function Panel (01/19/2025 9:57 AM EDT) Bilirubin, Total 0.4 0.0 - 1.0 mg/dL [facility] Bilirubin, Direct 0.2 0.0 - 0.5 mg/dL [facility] Aspartate Amino Transferase 21 5 - 31 U/L [facility] Alanine Aminotransferase 20 0 - 31 U/L [facility] Total Protein 6.9 6.5 - 8.0 g/dL [facility] Albumin Level 3.6 3.5 - 5.0 g/dL [facility] Alkaline Phosphatase 82 39 - 117 U/L [facility] Blood Venous blood specimen / Unknown 01/19/2025 9:57 AM EDT 01/19/2025 11:17 AM EDT Claudia Prieto MD LAB BLOOD ORDERABLES Final Result Performing Organization Address [facility] Co de Phone Number [facility] [address] [place] [phone] * (ABNORMAL) Lipid Panel, Standard (01/19/2025 9:57 AM EDT) Triglycerides 53 <150 mg/dL [facility] Comment:Desirable Triglyceri de: less than 150 mg/dLBorderline High Triglyceride 150-199 mg/dLHigh Triglyceride: 200-499 mg/dLVery High Triglyceride: greater than or equal to 5OO mg/dL Cholesterol 173 <200 mg/dL [facility] Comment:Desirable Cholestero l: less than 200 mg/dLBorderline High Cholesterol: 200-239 mg/dLHigh Cholesterol: greater than 239 mg/dL LDL Cholesterol Calculated 125(H) <100 mg/dL [facility] Comment:Desirable LDL: less than 100 mg/dLNear Optimal/Above Optimal LDL: 110- 129 mg/dLBorderline High LDL: 130-159 mg/dLHigh LDL: 160-189 mg/dLVery High LDL: greater than or equal to 190 mg/dL HDL Cholesterol 38(L) >40 mg/dL [facility] Comment:Desirable HDL: great er than 40 mg/dL Note: This HDL assay may give artificially low results in patients with liver disease. Blood Venous blood specimen / Unknown 01/19/2025 9:57 AM EDT 01/19/2025 11:17 AM EDT us Claudia Prieto MD LAB BLOOD ORDERABLES Final Result [facility] [address] [place] [phone] * (ABNORMAL) Basic Metabolic Panel (01/19/2025 9:57 AM EDT) Sodium 142 135 - 145 mmol/L [facility] Potassium 4.1 3.3 - 5.1 mmol/L [facility] Chloride 111(H) 96 - 108 mmol/L [facility] Carbon Dioxide 27 22 - 29 mmol/L [facility] Anion Gap 8(L) 12 - 20 [facility] Urea Nitrogen (BUN) 10 9 - 16 mg/dL [facility] Creatinine, Serum 0.59 0.5 - 1.4 mg/dL [facility] Estimated Glomerular Filt Rate >60 [facility] Comment:Chronic Kidney Disea se: Estimated GFR < 60 mL/min/1.00m0Okvuhz Kidney Disease: Estimated GFR < 15 mL/min/1.73m2 Glucose 92 60 - 115 mg/dL [facility] Calcium 8.5 8.4 - 10.2 mg/dL [facility] Blood Venous blood specimen / Unknown 01/19/2025 9:57 AM EDT 01/19/2025 11:17 AM EDT us Claudia Prieto MD LAB BLOOD ORDERABLES Final Result [facility] [address] [place] [phone] * Chlamydia/N. Gonorrhoeae RNA, TMA, Urogenitial (01/19/2025 12:00 AM EDT) CT PCR NOT DETECTED Not Detect. [facility] Comment:A not detected test result does not exclude the possibilityof infection because test results can be affected byimproper specimen collection, concurrent antibiotic therapy,or the number of organisms in the specimen which may bebelow the sensitivity of the test. As with many diagnostictests, results from the Xpert CT/NG assay should beinterpreted in conjunction with other laboratory andclinical data available to the clinician.Xpert CT/NG performance has not been evaluated in patientsless than 14 years of age. The assay should not be used forthe evaluationof suspected sexual abuse or for other medico-legalindications. Additional testing is recommended in anycircumstance when false positive or false negative resultscould lead to adverse medical, social or psychologicalconsequences. NG PCR NOT DETECTED Not Detect. [facility] Comment:A not detected test result does not exclude the possibilityof infection because test results can be affected byimproper specimen collection, concurrent antibiotic therapy,or the number of organisms in the specimen which may bebelow the sensitivity of the test. As with many diagnostictests, results from the Xpert CT/NG assay should beinterpreted in conjunction with other laboratory andclinical data available to the clinician.Xpert CT/NG performance has not been evaluated in patientsless than 14 years of age. The assay should not be used forthe evaluationof suspected sexual abuse or for other medico-legalindications. Additional testing is recommended in anycircumstance when false positive or false negative resultscould lead to adverse medical, social or psychologicalconsequences. Swab (Vaginal Swab) 01/19/2025 01/19/2025 [facility] - 01/23/2025 3:34 PM EDT Vaginal Claudia Prieto MD LAB MICROBIOLOGY - GENERAL ORDERABLES Final Result Performing Organization Address [facility] Co de Phone Number [facility] [address] [place] [phone] * Gram stain (01/05/2025 12:57 PM EDT) 01/05/2025 12:5 7 PM EDT 01/05/2025 1:03 PM EDT Comment:[facility] - 01/07/2025 8:26 AM EDT Test [...] GENERAL ORDERABLES Final Result Performing Organization Address [facility] Co de Phone Number [facility] [address] [place] [phone] * (ABNORMAL) Sed Rate by Modified Jose D (01/05/2025 11:13 AM EDT) Erythrocyte Sedimentation Rate 54(H) 0 - 20 MM/HR [facility] Comment:Patients with polycy themia and many hemoglobin abnormalitiesmay have depressed sed rates whereas patients with anemiamay have elevated sed rates. 01/05/2025 11:1 3 AM EDT 01/05/2025 11:16 AM EDT Generic External Data Provider LAB BLOOD ORDERAB LES Final Result Performing Organization Address [facility] Co de Phone Number [facility] [address] [place] [phone] * (ABNORMAL) C-reactive Protein (01/05/2025 11:13 AM EDT) Pathologist [facility] C Reactive Protein 14.70(H) < or = 0.50 mg/dL [facility] 01/05/2025 11:1 3 AM EDT 01/05/2025 11:16 AM EDT Generic External Data Provider LAB BLOOD ORDERAB LES Final Result Performing Organization Address [facility] Co de Phone Number [facility] [address] [place] [phone] * hCG, Total, Quantitative (01/05/2025 11:13 AM EDT) HCG Quantitative <2 mIU/mL [facility] Comment:Weeks post LMP Appro ximate hCG(Last Menstrual Period) Range (mIU/ml)3 - 4 weeks 9 - 1304 - 5 weeks 75 - 2,6005 - 6 weeks 850 - 20,8006 - 7 weeks 4000 - 100,2007 - 12 weeks 11,500 - 289,69125 - 16 weeks 18,300 - 137,07486 - 29 weeks (2nd trimester) 1,400 - 53,09411 - 41 weeks (3rd trimester) 940 - [...] ORDERAB LES Final Result Performing Organization Address [facility] de Phone Number [facility] [address] [place] [phone] * Magnesium (01/05/2025 11:13 AM EDT) Pathologist [facility] Magnesium 2.2 1.6 - 2.6 mg/dL [facility] 01/05/2025 11:1 3 AM EDT 01/05/2025 11:16 AM EDT Generic External Data Provider LAB BLOOD ORDERAB LES Final Result Performing Organization Address [facility] de Phone Number [facility] [address] [place] [address] [phone] * (ABNORMAL) Comprehensive Metabolic Panel (01/05/2025 11:13 AM EDT) Sodium 142 135 - 145 mmol/L [facility] Potassium 3.3 3.3 - 5.1 mmol/L [facility] Chloride 108 96 - 108 mmol/L [facility] Carbon Dioxide 27 22 - 29 mmol/L [facility] Anion Gap 10(L) 12 - 20 [facility] Urea Nitrogen (BUN) 8(L) 9 - 16 mg/dL [facility] Creatinine, Serum 0.61 0.5 - 1.4 mg/dL [facility] Creatinine Clr Calc Pharmacy 117.0 [facility] Comment:Provided height and weight: 167.64 cm,70.2 kg.eGFR (calculated from the MDRD study equation) and eCrCl(calculated from the Cockcroft-Gault equation) are based ondifferent parameters and may not yield comparable results.If eCrCl result is absurd, please check patient'sheight/weight. Estimated Glomerular Filt Rate >60 [facility] Comment:Chronic Kidney Disea se: Estimated GFR < 60 mL/min/1.94y1Mssriz Kidney Disease: Estimated GFR < 15 mL/min/1.73m2 Glucose 90 60 - 115 mg/dL [facility] Calcium 8.8 8.4 - 10.2 mg/dL [facility] Bilirubin, Total 0.4 0.0 - 1.0 mg/dL [facility] Aspartate Amino Transferase 18 5 - 31 U/L [facility] Alanine Aminotransferase 20 0 - 31 U/L [facility] Total Protein 7.0 6.5 - 8.0 g/dL [facility] Albumin Level 3.6 3.5 - 5.0 g/dL [facility] Alkaline Phosphatase 91 39 - 117 U/L [facility] 01/05/2025 11:1 3 AM EDT 01/05/2025 11:16 AM EDT us Generic External Data Provider LAB BLOOD ORDERAB LES Final Result Performing Organization Address [facility]/ZIP Co de Phone Number [facility] [address] [place] [phone] * Influenza B (ID NOW Rapid Molecular) (01/05/2025 10:27 AM EDT) Influenza B Negative Negative, Indeterminate [facility] QC Media Lot # [id number] [facility] Lot# Expiration Date [id number] [facility] Swab 01/05/2025 10:2 7 AM EDT us Stephania Garcia MD POINT OF CARE TEST ENTER/EDIT ORDERABLES Final Result Performing Organization Address [facility]/ZIP Co de Phone Number [facility] [address] [place] [phone] * Influenza A (ID NOW Rapid Molecular) (01/05/2025 10:27 AM EDT) Pathologist [facility] Influenza A Negative Negative, Indeterminate [facility] QC Media Lot # [id number] [facility] Lot# Expiration Date 22 [facility] Swab 01/05/2025 10:2 7 AM EDT Result [facility] Stephania Garcia MD POINT OF CARE TEST ENTER/EDIT ORDERABLES Final Result [facility] [address] [place] [phone] * POCT Rapid COVID Ag (01/05/2025 10:27 AM EDT) [facility] Rapid COVID Ag Negative QC Media Lot # [id number] Lot# Expiration Date Swab 01/05/2025 10:2 7 AM EDT Result [facility] Stephania Garcia MD POINT OF CARE TEST ENTER/EDIT ORDERABLES Final Result * (ABNORMAL) POCT rapid strep A manually resulted (01/05/2025 10:27 AM EDT) [facility] Rapid Strep A Screen Positive( A) Negative, None Detected QC Media Lot # [id number] Lot# Expiration Date Swab 01/05/2025 10:2 7 AM EDT Result [facility] Stephania Garcia MD POINT OF CARE TEST ENTER/EDIT ORDERABLES Final Result * Pap Smear (10/17/2019 12:00 AM EST) Swab Result [facility] Sriram Best MD LAB CYTOLOGY ORDERABLES F inal Result IMAGING * HPV E6/E7 RFLX KELLY 16 18/45 (10/05/2019 3:19 PM EST) ADDITIONAL TESTING Not indicated () [facility] Comment: [facility] Performed by [facility], [employer] [address], [address] [place], [place] Jaya Melgar M.D., Ph.D., Director of Laboratories , [place] [id number] HPV 16 RNA Test not performed [facility] HPV 18/45 RNA Test not performed [facility] HPV mRNA E6/E7 Not Detected NOT DETECTED [facility] Comment: This test was performed using the APTIMA(R) HPV Assay ([employer] This assay detects E6/E7 viral messenger RNA (mRNA) from 14 high-risk HPV types (16,18,31,33,35,39,45,51, 52,56,58,59,66,68). For additional information please refer to: http://education.Niche/faq/LMR710z6 (This link is being provided for informational/ educational purposes only.) The analytical performance characteristics of this assay have been determined by [employer] [place], [place]. The modifications have not been cleared or approved by the FDA. This assay has been validated pursuant to the CLIA regulations and is used for clinical purposes. Please note: ??Effective 06/15/2016, HPV testing will be performed using [employer]'s APTIMA test which targets mRNA. Detecting mRNA instead of DNA, as in older methods, offers significant improvements in specificity. 10/05/2019 3:19 PM EST us Claudia Prieto MD HISTORICAL/NON ORDERABLE L ABS Final Result [facility] [address] from Last 3 Months or Most Recently Relevant to Health Maintenance Insurance [facility] C3 [facility] MEDICAID STAND ADULT Care Teams Windows Server Architect Relationship Specialty Start Date End Date [place], MD Claudia [address] [place] [address] [phone] PCP - General Family Medicine 10/04/18 Ivis Medel, [address] [place], [place] [phone] Gynecology 10/17/24
--- OUTSIDE RECORDS SUMMARY | 2025-01-23 16:37 | XMS_ITS | Encounter Summary ---
Author Organization [facility] Address [address] [place] [address] Care Team Providers Care Corn Shucker Name Role Phone Claudia Prieto MD Primary Care Provider [phone]- [phone] Reason for Visit * Reason Onset Date Comments Results 01/19/2025 Encounter Details Date Type Department Care Team ([facility] st Contact Info) Description 01/19/2025 Refill [facility] [address] [place], [place] [phone] Claudia Prieto MD [address] [place], [place] [phone] Menorrhagia with regular cycle; Vitamin D deficiency Social History Tobacco Use Types Packs/Day Years [...] encounter Miscellaneous Notes * Telephone Encounter - Sagrario Harper RN - 01/19/2025 1:42 PM EDT TC placed to pt via [employer] (ID#[id number]) per below PCP message. Pt verbalized understanding of results. Pt reports their preferred pharmacy is [facility] in [place], [place]. Medications ibuprofen 600 MG tablet and cholecalciferol (Vitamin D-3) 25 MCG (1000 UT) tablet that PCP sent today pended to PCP with updated pharmacy for review. Message forwarded to PCP to review and advise . ----- Message from Claudia Prieto MD sent at 01/19/2025 12:42 PM EDT ----- Please let Isadeliz know that their vitamin D is low. Vitamin D is important for bone health and energy. I am sending vitamin D 1000 international units to take daily to her preferred pharmacy on file. Thank you. documented in this encounter Plan of Treatment Upcoming Encounters Date Type Department Care Team ([facility] st Contact Info) Description 03/08/2025 2:30 PM EDT Office Visit [facility] [address] [place], [place] [phone] Ama Jarquin, OD [address] [place], [place] [phone] documented as of this encounter Visit Diagnoses Diagnosis Menorrhagia with regular cycle Vitamin D deficiency documented in this encounter Additional Health Concerns Assessment Noted Time PHQ-9 Depression Total Score: 0 01/20/20 25 9:12 AM EDT documented as of this encounter Care Teams Corn Shucker Relationship Specialty Start Date End Date Claudia Prieto MD [address] [place] [phone] PCP - General Family Medicine 10/04/18 Ivis Medel, DO [address] [place] [address] Gynecology 10/17/24 documented as of this encounter
--- OUTSIDE RECORDS SUMMARY | 2025-01-23 16:37 | XMS_ITS | Clinical Summary ---
Author Organization [facility] Address [facility] [place] [address] Care Team Providers Care It Support Manager Name Role Phone Leonardo Gagnon Primary Care Provider Unavailabl e Allergies Active Allergy Reactions Severity Noted Date Comments Penicillins Rash/Dermatitis 02/13/2024 Active Problems Problem Noted Date Patient denies medical problems 02/13/20 Family History Medical History Relation Name Comments CA Breast Aunt Relation Name Status Comments Aunt Alive Social History Tobacco Use Types Packs/Day Years Used Date Smoking Tobacco: Never Smokeless Tobacco: Never Tobacco Cessation:Counseling Given: Not Answered Alcohol Use Standard Drinks/Week Comments Yes 0 (1 standard drink = 0.6 oz pur e alcohol) Sex Assigned at Date Recorded Not on file Plan of Treatment Health Maintenance Due Date Last Done Comments Covid-19 Vaccine (#1) 06/13/1987 BASELINE HEALTH EXAM 18-39 2005 DTAP/TDAP/TD (1 - Tdap) 2005 CHOLESTEROL SCREENING 2006 CERVICAL CANCER SCREENING 12/12/2007 BMI CHECK/ADVISE 10/04/2024 DEPRESSION SCREENING/FOLLOWUP 10/04/2024 SOCIAL NEEDS SCREENING 10/04/2024 INFLUENZA (Season Ended) 2025 PNEUMOCOCCAL VACCINE FOR HIGH RISK PATIENTS (#1) 12/11 Care Teams It Support Manager Relationship Specialty Start Date End Date Leonardo Gagnon PCP - General Family Practice 02/13/15
--- OUTSIDE RECORDS SUMMARY | 2025-01-23 16:37 | XMS_ITS | Encounter Summary ---
Author Organization [facility] Address [address] [place] [address] Care Team Providers Care Pulmonologist/Intensivist Name Role Phone Claudia Prieto MD Primary Care Provider [phone]- [phone] Encounter Details Date Type Department Care Team (Late Contact Info) Description 11/10/2022 Abstract [facility] [address] [place], [place] [phone] Claudia Prieto MD [address] [place], [place] [phone] Social History Tobacco Use Types Packs/Day Years [...] Description 03/08/2025 2:30 PM EDT Office Visit [facility] [address] [place], [place] [phone] Ama Jarquin, OD [address] [place] [address] documented as of this encounter Procedures Procedure Name Priority Date/Time Associated Diagnosis Comments PAP SMEAR Routine 10/17/2019 12:00 AM EST documented in this encounter Results * Pap Smear (10/17/2019 12:00 AM EST) Swab us Historical Provider LAB CYTOLOGY ORDERABLES F inal Result IMAGING documented in this encounter Visit Diagnoses Not on filedocumented in this encounter Care Teams Pulmonologist/Intensivist Relationship Specialty Start Date End Date Claudia Prieto MD [address] [place] [phone] PCP - General Family Medicine 10/04/18 Ivis Medel DO [address] [place] [address] Gynecology 10/17/24 documented as of this encounter
--- OUTSIDE RECORDS SUMMARY | 2025-01-23 16:37 | XMS_ITS | Encounter Summary ---
Author Organization [facility] Address [address] [place] [address] Care Team Providers Care Crown Wheel Assembler Name Role Phone Claudia Prieto MD Primary Care Provider [phone] Reason for Visit * Reason Comments PAP Encounter Details Date Type Department Care Team (Latest Contact Info) Description 01/19/2025 9:00 AM EDT Procedure Visit [facility] [address] [place], [place] [phone] Claudia Prieto MD [address], [place] [phone] Dyslipidemia (Primary Dx); Vitamin D deficiency; Depressive [...] 9:09 AM EDT documented in this encounter Progress Notes * Claudia Prieto MD - 01/19/2025 9:00 AM EDT Juventino Dye is a 39 y.o. female with past medical history of depression who presents to the office today for chronic medical conditions, PAP and comprehensive annual evaluation. Last seen by PCP() 06/2023. Since then: - Seen in [facility] ER 02/13/24 for abdominal pain, diagnosed with left tubo ovarian abscess. Pelvic US IMPRESSION: A complex rounded lesion within the left adnexa with peripheral vascularity measuring up to 3.3 x 3.0 x 3.2 cm in transverse diameter. Likely heterogeneous fluid contained centrally within this lesion with thickened periphery. Finding could represent changes of left tubo-ovarian abscess inthe correct clinical setting. Recommend OBGYN consultation and consideration for improved characterization with MRI imaging of the female pelvis with IV contrast. Seen by RESIDENTIAL THERAPIST in ER and started on IV antibiotics and discharged with PO with recommend follow up with Surgical Territory Manager as outpatient. - Saw Lisa(Customer Supply Coordinator) 02/22/24, benign pelvic exam. Referred to PARK NATURALIST for interest in tubal ligation. - Seen at [facility] 07/28/24 for Tubal Ligation - Seen at [facility] 08/11/24 for follow-up. - Seen in [facility] 01/05/25 for significant peritonsillar abscess, with trismus and uvula shift. Sent to [facility], treated with abx. Pt reports overall doing well. She notes her peritonsillar abscess resolved after completing abx. She reports she had her tubal ligation and follows with PARK NATURALIST after her ovarian abscess that also resolved after abx treatment. Denies any other acute concerns. Agrees to do PAP today and agrees to get COVID, Hep B and TDAP vaccines today. Denies Flu. LMP: currently menstruating Menses frequency: regular Menses concerns: heavy cycles Desires within the next year:yes Brit control: Tubal Ligation Breast concerns negative for: Masses, Nipple discharge, and Tenderness Menopausal symptoms negative for: hot flashes, night sweats, urinary incontinence and vaginal dryness. Social History Tobacco: denied Drugs: none Alcohol: on rare social occassions Sexuality: Contraception: bilateral tubal ligation Suicide/Depression: The patient denies any present symptoms of depression or anxiety. Review of Systems Constitutional: Negative for fatigue, fever and unexpected weight change. Respiratory: Negative for cough. Cardiovascular: Negative for chest pain. Gastrointestinal: Negative for abdominal pain. Genitourinary: Positive for menstrual problem. Negative for difficulty urinating. Current Outpatient Medications: acetaminophen (Tylenol) 500 MG tablet, Take 1 tablet (500 mg) by mouth every 6 (six) hours if needed for mild pain for up to 15 doses., Disp: 15 tablet, Rfl: 0 ibuprofen 600 MG tablet, Take 1 tablet (600 mg) by mouth every 6 (six) hours if needed for mild pain for up to 15 doses., Disp: 15 tablet, Rfl: 0 ibuprofen 600 MG tablet, Take 1 tablet (600 mg) by mouth every 8 (eight) hours if needed for moderate pain or fever., Disp: 30 tablet, Rfl: 0 Allergies Allergen Reactions Penicillins Rash Past Medical History: Diagnosis Date Depressive disorder 06/20/2012 No suicidal or homicidal ideation. Referral for psychotherapy and psychiatry offered. -start fluoxetine 20mg po daily 07/23/16 -seen by [facility] to establish with therapist Past Surgical History: Procedure Laterality Date TUBAL LIGATION Family History Problem Relation Name Age of Onset Hypertension Father Previous paps: 10/17/2019 NILM, HPV- Mammogram: n/a Objective Visit Vitals BP 117/78 (BP Location: Left arm, Patient Position: Sitting, BP Cuff Size: Adult) Pulse 70 Temp 98.8 ??F (37.1 ??C) (Temporal) Resp 20 Ht 5' 6 (1.676 m) Wt 158 lb (71.7 kg) SpO2 96% BMI 25.50 kg/m?? OB Status Having periods Smoking Status Never BSA 1.83 m?? Physical Exam Constitutional: Appearance: Normal appearance. HENT: Head: Normocephalic. Right Ear: Tympanic membrane normal. Left Ear: Tympanic membrane normal. Mouth/Throat: Pharynx: Oropharynx is clear. Eyes: Pupils: Pupils are equal, round, and reactive to light. Cardiovascular: Rate and Rhythm: Normal rate and regular rhythm. Heart sounds: Normal heart sounds. Pulmonary: Effort: Pulmonary effort is normal. Breath sounds: Normal breath sounds. Chest: Breasts: Right: Normal. Left: Normal. Abdominal: General: Abdomen is flat. Palpations: There is no mass. Tenderness: There is no abdominal tenderness. Genitourinary: General: Normal vulva. Vagina: Normal. Cervix: Normal. Uterus: Normal. Musculoskeletal: General: Normal range of motion. Cervical back: Normal range of motion and neck supple. Lymphadenopathy: Cervical: No cervical adenopathy. Upper Body: Right upper body: No supraclavicular, axillary or pectoral adenopathy. Left upper body: No supraclavicular, axillary or pectoral adenopathy. Skin: General: Skin is warm and dry. Neurological: General: No focal deficit present. Mental Status: She is alert. Psychiatric: Behavior: Behavior normal. Orders Only on 01/05/2025 Component Date Value White Blood Count 01/05/2025 13.8 (H) Red Blood Count 01/05/2025 3.95 (L) Hemoglobin 01/05/2025 12.8 Hematocrit 01/05/2025 36.6 (L) Mean Corpuscular Volume 01/05/2025 92.7 Mean Corpuscular Hemoglo* 01/05/2025 32.4 Mean Corpuscular HGB Conc 01/05/2025 35.0 Red Cell Distribution Wi* 01/05/2025 12.8 Platelet Count 01/05/2025 249 Mean Platelet Volume 01/05/2025 10.2 Neutrophils Percent Auto 01/05/2025 80.4 (H) Imm Gran Pct Auto 01/05/2025 0.6 (H) Lymphocytes Percent Auto 01/05/2025 12.7 (L) Monocytes Percent Auto 01/05/2025 5.4 Eosinophils Percent Auto 01/05/2025 0.4 Basophils Percent Auto 01/05/2025 0.5 NRBC Pct Auto 01/05/2025 0.0 Neutrophils Absolute Auto 01/05/2025 11.1 (H) Imm Gran Abs Auto 01/05/2025 0.08 (H) Lymphocytes Absolute Au* 01/05/2025 1.8 Monocytes Absolute Auto 01/05/2025 0.8 Eosinophils Absolute Auto 01/05/2025 0.1 Basophils Absolute Auto 01/05/2025 0.1 NRBC Abs Auto 01/05/2025 0.000 Erythrocyte Sedimentatio* 01/05/2025 54 (H) Sodium 01/05/2025 142 Potassium 01/05/2025 3.3 Chloride 01/05/2025 108 Carbon Dioxide 01/05/2025 27 Anion Gap 01/05/2025 10 (L) Urea Nitrogen (BUN) 01/05/2025 8 (L) Creatinine, Serum 01/05/2025 0.61 Creatinine Clr Calc Phar* 01/05/2025 117.0 Estimated Glomerular Richardson* 01/05/2025 >60 Glucose 01/05/2025 90 Calcium 01/05/2025 8.8 Bilirubin, Total 01/05/2025 0.4 Aspartate Amino Transfer* 01/05/2025 18 Alanine Aminotransferase 01/05/2025 20 Total Protein 01/05/2025 7.0 Albumin Level 01/05/2025 3.6 Alkaline Phosphatase 01/05/2025 91 Magnesium 01/05/2025 2.2 C Reactive Protein 01/05/2025 14.70 (H) HCG Quantitative 01/05/2025 <2 Office Visit on 01/05/2025 Component Date Value Influenza B 01/05/2025 Negative QC Media Lot # 01/05/2025 [id number] Lot# Expiration Date 01/05/2025 1,082,026 Influenza A 01/05/2025 Negative QC Media Lot # 01/05/2025 [id number] Lot# Expiration Date 01/05/2025 1,082,026 Rapid COVID Ag 01/05/2025 Negative QC Media Lot # 01/05/2025 [id number] Lot# Expiration Date 01/05/2025 942,026 Rapid Strep A Screen 01/05/2025 Positive (A) QC Media Lot # 01/05/2025 [id number] Lot# Expiration Date 01/05/2025 1,252,026 39 y.o. female annual evaluation. Problem List Items Addressed This Visit Dyslipidemia - Primary Lab Results Component Value Date CHOL 212 (H) 07/08/2023 TRIG 84 07/08/2023 HDL 47 07/08/2023 LDLCHOLCAL 149 (H) 07/08/2023 -continue lifestyle modification -ordered repeat FLP + HFP 01/19/25 Relevant Orders Hepatic Function Panel Lipid Panel, Standard Basic Metabolic Panel Vitamin D deficiency -ordered Vit D level 01/19/25 Relevant Orders Vitamin D, 25-Hydroxy, Total, Immunoassay Depressive disorder No suicidal or homicidal ideation. Referral for psychotherapy and psychiatry offered. -start fluoxetine 20mg po daily 07/23/16 -seen by [facility] to establish with therapist Menorrhagia with regular cycle Reports really heavy cycles with significant cramping, though still regular. -prescribed ibuprofen 600 MG and recommended taking in anticipation of menstruating. -ordered labs 01/19/25 Relevant Medications ibuprofen 600 MG tablet Other Relevant Orders Ferritin Iron And Total Iron Binding Capacity Pap smear for cervical cancer screening 10/17/2019 NILM, HPV- 01/19/25 Pap with HPV testing done -STI testing offered, PreP offered -Preventative care and harm reduction discussed Relevant Orders Pap Smear STI testing add on (NG, CT, Trich) Other specified health status -next comprehensive annual evaluation due after 01/19/26 -eye care facilitated by [facility] -dental home is [facility] -[place] care proxy filed 01/19/25 Other Visit Diagnoses Routine screening for STI (sexually transmitted infection) Relevant Orders HIV-1/2 Antigen and Antibodies, Fourth Generation, with Reflexes Syphilis Screen Hepatitis C Antibody with Reflex to HCV, RNA, Quantitative, Real-Time PCR Encounter for immunization Relevant Orders CBC auto differential COVID-19 VACCINE (Pfizer) 9837-0263 12 yrs + (Completed) TDAP VACCINE 7 yrs + (Completed) HEPATITIS B VACCINE ADULT 20 yrs + (Completed) Pap with HPV testing done STI testing offered, PreP offered Preventative care and harm reduction discussed Annual Evaluation -Normal growth and development. -Anticipatory guidance discussed. -Preventative care / harm reduction discussed. Follow up in about 1 year (around 01/19/2026) for physical. I, Akua Jenkins, am serving as a scribe to document services personally performed by Dr. Lauren, based on the patient's response to questions by provider and providers statements to me. documented in this encounter Miscellaneous Notes * Assessment & Plan Note - Akua Jenkins - 01/19/2025 9:50 AM EDTAssociated Problem(s): Depressive disorder No suicidal or homicidal ideation. Referral for psychotherapy and psychiatry offered. -start fluoxetine 20mg po daily 07/23/16 -seen by [facility] to establish with therapist * Assessment & Plan Note - Akua Jenkins - 01/19/2025 9:47 AM EDTAssociated Problem(s): Menorrhagia with regular cycle Reports really heavy cycles with significant cramping, though still regular. -prescribed ibuprofen 600 MG and recommended taking in anticipation of menstruating. -ordered labs 01/19/25 * Assessment & Plan Note - Akua Alice - 01/19/2025 9:39 AM EDTAssociated Problem(s): Dyslipidemia Lab Results Component Value Date CHOL 212 (H) 07/08/2023 TRIG 84 07/08/2023 HDL 47 07/08/2023 LDLCHOLCAL 149 (H) 07/08/2023 -continue lifestyle modification -ordered repeat FLP + HFP 01/19/25 * Assessment & Plan Note - NexGen Energyer - 01/19/2025 9:34 AM EDTAssociated Problem(s): Vitamin D deficiency -ordered Vit D level 01/19/25 * Assessment & Plan Note - SandeePurer Skiner - 01/19/2025 9:34 AM EDTAssociated Problem(s): Pap smear for cervical cancer screening 10/17/2019 NILM, HPV- 01/19/25 Pap with HPV testing done -STI testing offered, PreP offered -Preventative care and harm reduction discussed * Assessment & Plan Note - SandeePurer Skiner - 01/19/2025 9:33 AM EDTAssociated Problem(s): Elevated cholesterol (Deleted) Lab Results Component Value Date CHOL 212 (H) 07/08/2023 TRIG 84 07/08/2023 HDL 47 07/08/2023 LDLCHOLCAL 149 (H) 07/08/2023 -continue lifestyle modification -ordered repeat FLP + HFP 01/19/25 * Assessment & Plan Note - Nex[employer] Energyer - 01/19/2025 9:33 AM EDTAssociated Problem(s): Other specified health status -next comprehensive annual evaluation due after 01/19/26 -eye care facilitated by [facility] -dental home is [facility] -[place] care proxy filed 01/19/25 * Result Encounter Note - Claudia Prieto MD - 01/19/2025 9:00 AM EDT Please let Isadeliz know that their vitamin D is low. Vitamin D is important for bone health and energy. I am sending vitamin D 1000 international units to take daily to her preferred pharmacy on file. Thank you. * Addendum Note - Kenroy Medellin MA - 01/19/2025 9:00 AM EDTAddended by: KENROY MEDELLIN on: 01/23/2025 01:44 PM Modules accepted: Orders documented in this encounter Plan of Treatment Upcoming Encounters Date Type Department Care Team (Late st Contact Info) Description 03/08/2025 2:30 PM EDT Office Visit [facility] [address] [place] [address] Britton, Ama, OD [address] [place] [address] Scheduled Orders Name Type Priority Associated Diagnoses Orde r Schedule Pap Smear Pathology and Cytology Routine Pap smear for cervical cancer screening Ordered: 01/19/2025 STI testing add on (NG, CT, Trich) Pathology and Cytology Routine Pap smear for cervical cancer screening Ordered: 01/19/2025 documented as of this encounter Procedures Procedure Name Priority Date/Time Associated Diagnosis Comments SYPHILIS SCREEN Routine 01/19/2025 9:57 AM EDT Routine screening for STI (sexually transmitted infection) VITAMIN D,25-OH,TOTAL,IA Routine 01/19/2025 9:57 AM EDT Vitamin D deficiency CBC WITH AUTO DIFFERENTIAL Routine 01/19/2025 9:57 AM EDT Encounter for immunization HEPATITIS C AB W/REFL TO HCV RNA, QN, PCR Routine 01/19/2025 9:57 AM EDT Routine screening for STI (sexually transmitted infection) IRON AND TOTAL IRON BINDING CAPACITY Routine 01/19/2025 9:57 AM EDT Menorrhagia with regular cycle HIV 1/2 ANTIGEN/ANTIBODY, FOURTH GENERATION W/RFL Routine 01/19/2025 9:57 AM EDT Routine screening for STI (sexually transmitted infection) FERRITIN Routine 01/19/2025 9:57 AM EDT Menorrhagia with regular cycle HEPATIC FUNCTION PANEL Routine 01/19/2025 9:57 AM EDT Dyslipidemia LIPID PANEL, STANDARD Routine 01/19/2025 9:57 AM EDT Dyslipidemia BASIC METABOLIC PANEL Routine 01/19/2025 9:57 AM EDT Dyslipidemia CHLAMYDIA/N. GONORRHOEAE RNA, TMA, UROGENITAL Routine 01/19/2025 12:00 AM EDT Routine screening for STI (sexually transmitted infection) documented in this encounter Results * Hepatitis C Antibody with Reflex to HCV, RNA, Quantitative, Real-Time PCR (01/19/2025 9:57 AM EDT) Hepatitis C Antibody Nonreactive Nonreactive [facility] Comment:Antibodies to HCV no t detected; does not exclude early acuteHCV infection. Blood Venous blood specimen / Unknown 01/19/2025 9:57 AM EDT 01/19/2025 11:05 AM EDT us Claudia Prieto MD LAB BLOOD ORDERABLES Final Result [facility] [address] [place] [phone] * Iron And Total Iron Binding Capacity (01/19/2025 9:57 AM EDT) Iron 61 30 - 160 mcg/dL [facility] Total Iron Binding Capacity 272 228 - 428 mcg/dL [facility] Percent Iron Saturation 22 15 - 50 % [facility] Unsaturated Iron Binding 211 ug/dL [facility] Blood Venous blood specimen / Unknown 01/19/2025 9:57 AM EDT 01/19/2025 11:17 AM EDT Claudia Prieto MD LAB BLOOD ORDERABLES Final Result Performing Organization Address [facility]/ZIP Co de Phone Number [facility] [address] [place] [phone] * Ferritin (01/19/2025 9:57 AM EDT) Pathologist [facility] Ferritin 67 10 - 122 ng/mL [facility] Blood Venous blood specimen / Unknown 01/19/2025 9:57 AM EDT 01/19/2025 11:17 AM EDT Claudia Prieto MD LAB BLOOD ORDERABLES Final Result Performing Organization Address [facility]/ZIP Co de Phone Number [facility] [address] [place] [phone] * Syphilis Screen (01/19/2025 9:57 AM EDT) Pathologist [facility] Syphilis Screen Nonreactive Nonreactive [facility] Blood Venous blood specimen / Unknown 01/19/2025 9:57 AM EDT 01/19/2025 11:05 AM EDT Claudia Prieto MD LAB BLOOD ORDERABLES Final Result Performing Organization Address [facility]/ZIP Co de Phone Number [facility] [address] [place] [phone] * HIV-1/2 Antigen and Antibodies, Fourth Generation, with Reflexes (01/19/2025 9:57 AM EDT) Pathologist [facility] HIV AB/AG Nonreactive Nonreactive [facility] Comment:HIV-1 p24 Ag and/or HIV-1/HIV-2 Ab not detected.A test result that is nonreactive does not exclude thepossibility of exposure to or infection with HIV-1 and/orHIV-2. Nonreactive results in this assay for individualswith prior exposure to HIV-1 and/or HIV-2 may be due toantigen and antibody levels that are below the limit ofdetection of this assay.The [employer] HIV Ag/Ab Combo assay result andsupplemental assay results should be interpreted inconjunction with the patient's clinical presentation,history and other laboratory results. If the results areinconsistent with clinical evidence, additional testing issuggested to confirm the result. Blood Venous blood specimen / Unknown 01/19/2025 9:57 AM EDT 01/19/2025 11:05 AM EDT us Claudia Prieto MD LAB BLOOD ORDERABLES Final Result [facility] [address] [place] [phone] * (ABNORMAL) Vitamin D, 25-Hydroxy, Total, Immunoassay (01/19/2025 9:57 AM EDT) Pathologist [facility] Vitamin D 25-OH Total 28.9(L) >30 ng/mL [facility] Comment: Health Based Reference Values*< 20 ??ng/mL ??Mhmrxnjrt25-16 ng/mL ??Insufficient> 30 ??ng/mL ??Sufficient*Merlin VASQUEZ. N [...] Prieto MD LAB BLOOD ORDERABLES Final Result [facility] [address] [place] [phone] * (ABNORMAL) CBC auto differential (01/19/2025 9:57 AM EDT) White Blood Count 6.7 4.8 - 10.8 X10*3/uL [facility] Red Blood Count 4.00(L) 4.20 - 5.50 X10*6/uL [facility] Hemoglobin 12.8 12.0 - 16.0 g/dl [facility] Hematocrit 38.1 37.0 - 47.0 % [facility] Mean Corpuscular Volume 95.3 80.0 - 98.0 fL [facility] Mean Corpuscular Hemoglobin 32.0 27.0 - 33.0 pg [facility] Mean Corpuscular HGB Conc 33.6 31.0 - 35.0 g/dl [facility] Red Cell Distribution Width 12.5 11.0 - 16.0 % [facility] Platelet Count 308 160 - 400 X10*3/uL [facility] Mean Platelet Volume 11.2 9.4 - 12.3 fL [facility] Neutrophils Percent Auto 67.7 45 - 73 % [facility] Imm Gran Pct Auto 0.4 0.0 - 0.4 % [facility] Lymphocytes Percent Auto 25.8 20 - 40 % [facility] Monocytes Percent Auto 4.5 2 - 11 % [facility] Eosinophils Percent Auto 1.0 0 - 4 % [facility] Basophils Percent Auto 0.6 0 - 2 % [facility] NRBC Pct Auto 0.0 0.0 - 0.2 /100WBC [facility] Neutrophils Absolute Auto 4.5 2.0 - 8.3 x10*3/uL [facility] Imm Gran Abs Auto 0.03 0.00 - 0.03 X10*3/uL [facility] Lymphocytes Absolute Auto 1.7 1.2 - 4.9 X10*3/uL [facility] Monocytes Absolute Auto 0.3 0.1 - 1.2 X10*3/uL [facility] Eosinophils Absolute Auto 0.1 0.0 - 0.4 X10*3/uL [facility] Basophils Absolute Auto 0.0 0.0 - 0.2 X10*3/uL [facility] NRBC Abs Auto 0.000 0.0 - 0.012 X10*3/uL [facility] Blood Venous blood specimen / Unknown 01/19/2025 9:57 AM EDT 01/19/2025 11:17 AM EDT us Claudia Prieto MD LAB BLOOD ORDERABLES Final Result [facility] [address] [place] [phone] * (ABNORMAL) Basic Metabolic Panel (01/19/2025 9:57 AM EDT) Sodium 142 135 - 145 mmol/L [facility] Potassium 4.1 3.3 - 5.1 mmol/L [facility] Chloride 111(H) 96 - 108 mmol/L [facility] Carbon Dioxide 27 22 - 29 mmol/L [facility] Anion Gap 8(L) 12 - 20 [facility] Urea Nitrogen (BUN) 10 9 - 16 mg/dL [facility] Creatinine, Serum 0.59 0.5 - 1.4 mg/dL [facility] Estimated Glomerular Filt Rate >60 [facility] Comment:Chronic Kidney Disea se: Estimated GFR < 60 mL/min/[id number] Kidney Disease: Estimated GFR < 15 mL/min/1.73m2 Glucose 92 60 - 115 mg/dL [facility] Calcium 8.5 8.4 - 10.2 mg/dL [facility] Blood Venous blood specimen / Unknown 01/19/2025 9:57 AM EDT 01/19/2025 11:17 AM EDT us Claudia Prieto MD LAB BLOOD ORDERABLES Final Result [facility] [address] [place] [phone] * (ABNORMAL) Lipid Panel, Standard (01/19/2025 9:57 AM EDT) Triglycerides 53 <150 mg/dL [facility] Comment:Desirable Triglyceri de: less than 150 mg/dLBorderline High Triglyceride 150-199 mg/dLHigh Triglyceride: 200-499 mg/dLVery High Triglyceride: greater than or equal to 5OO mg/dL Cholesterol 173 <200 mg/dL [facility] Comment:Desirable Cholestero l: less than 200 mg/dLBorderline High Cholesterol: 200-239 mg/dLHigh Cholesterol: greater than 239 mg/dL LDL Cholesterol Calculated 125(H) <100 mg/dL [facility] Comment:Desirable LDL: less than 100 mg/dLNear Optimal/Above Optimal LDL: 110- 129 mg/dLBorderline High LDL: 130-159 mg/dLHigh LDL: 160-189 mg/dLVery High LDL: greater than or equal to 190 mg/dL HDL Cholesterol 38(L) >40 mg/dL [facility] Comment:Desirable HDL: great er than 40 mg/dL Note: This HDL assay may give artificially low results in patients with liver disease. Blood Venous blood specimen / Unknown 01/19/2025 9:57 AM EDT 01/19/2025 11:17 AM EDT Claudia Prieto MD LAB BLOOD ORDERABLES Final Result Performing Organization Address [facility] Co de Phone Number [facility] [address] [place] [phone] * Hepatic Function Panel (01/19/2025 9:57 AM EDT) Bilirubin, Total 0.4 0.0 - 1.0 mg/dL [facility] Bilirubin, Direct 0.2 0.0 - 0.5 mg/dL [facility] Aspartate Amino Transferase 21 5 - 31 U/L [facility] Alanine Aminotransferase 20 0 - 31 U/L [facility] Total Protein 6.9 6.5 - 8.0 g/dL [facility] Albumin Level 3.6 3.5 - 5.0 g/dL [facility] Alkaline Phosphatase 82 39 - 117 U/L [facility] Blood Venous blood specimen / Unknown 01/19/2025 9:57 AM EDT 01/19/2025 11:17 AM EDT Claudia Prieto MD LAB BLOOD ORDERABLES Final Result Performing Organization Address [facility] de Phone Number [facility] [address] [place] [phone] * Chlamydia/N. Gonorrhoeae RNA, TMA, Urogenitial (01/19/2025 12:00 AM EDT) CT PCR NOT DETECTED Not Detect. [facility] Comment:A not detected test result [...] psychologicalconsequences. NG PCR NOT DETECTED Not Detect. [facility] Comment:A not detected test result [...] or psychologicalconsequences. Swab (Vaginal Swab) 01/19/2025 01/19/2025 Narrative [facility] - 01/23/2025 3:34 PM EDT Vaginal Claudia Prieto MD LAB MICROBIOLOGY - GENERAL ORDERABLES Final Result Performing Organization Address City/State/[facility] Co de Phone Number [facility] [address] [place] [address] [phone] documented in this encounter Visit Diagnoses Diagnosis Dyslipidemia- Primary [...] documented as of this encounter Care Teams Crown Wheel Assembler Relationship Specialty Start Date End Date Claudia Prieto MD [address] [place] [phone] PCP - General Family Medicine 10/04/18 Ivis Medel, DO [address] [place] [phone] Gynecology 10/17/24 documented as of this encounter
--- OUTSIDE RECORDS SUMMARY | 2025-01-23 16:37 | XMS_ITS | Encounter Summary ---
Author Organization [facility] Address [address] 7t [place] [address] Care Team Providers Care Cocoa Roaster Name Role Phone Claudia Prieto MD Primary Care Provider [phone]- [phone] Encounter Details Date Type Department Care Team (Latest Contact Info) Description 02/11/[address] [facility] CONVERSIONS Dental, Provider, DDS Social History [...] Description 03/08/2025 2:30 PM EDT Office Visit [facility] OPTOMETRY [address] [place] [address] Ama Jarquin, OD [address] [place] [address] documented as of this encounter Visit Diagnoses Not on filedocumented in this encounter Care Teams Cocoa Roaster Relationship Specialty Start Date End Date Claudia Prieto MD [address] [place] [address] PCP - General Family Medicine 10/04/18 Ivis Medel, DO [address] [place] [address] Gynecology 10/17/24 documented as of this encounter
--- OUTSIDE RECORDS SUMMARY | 2025-01-23 16:37 | XMS_ITS | Encounter Summary ---
Author Organization [employer] Address [address] 7[address] [place] [address] Care Team Providers Care Hotbed Operator Name Role Phone Claudia Prieto MD Primary Care Provider [phone]- [phone] Encounter Details Date Type Department Care Team (Late st Contact Info) Description 01/19/2025 Orders Only [facility] MEDICINE [address] [place], [place] [phone] Claudia Prieto MD [address] [place], [place] [phone] Vitamin D deficiency (Primary Dx) Social History Tobacco Use Types Packs/Day Years [...] 2:30 PM EDT Office Visit [facility] OPTOMETRY [address] [place] [address] BrittonAma morrison, OD [address] [place] [address] documented as of this encounter Visit Diagnoses Diagnosis Vitamin D deficiency- Primary documented in this encounter Additional Health Concerns Assessment Noted Time PHQ-9 Depression Total Score: 0 01/20/20 25 9:12 AM EDT documented as of this encounter Care Teams Hotbed Operator Relationship Specialty Start Date End Date Claudia Prieto MD [address] [place] [address] PCP - General Family Medicine 10/04/18 Ivis Medel, DO [address] [place] [address] Gynecology 10/17/24 documented as of this encounter
--- OUTSIDE RECORDS SUMMARY | 2025-01-23 16:37 | XMS_ITS | Clinical Summary ---
Author Organization [employer] Address [address] [place] [address] Care Team Providers Care Tech Ed Teacher Name Role Phone Leonardo Gagnon DO Primary Care Provider [phone] Surgical History Surgery Date Site/Laterality Comments ECTOPIC [...] age to complete this topic Care Teams Tech Ed Teacher Relationship Specialty Start Date End Date Leonardo Gagnon DO [address] [address] PCP - General 02/13/15
--- OUTSIDE RECORDS SUMMARY | 2025-01-23 16:37 | XMS_ITS | Encounter Summary ---
Author Organization [facility] Address [address] [facility] 7t [place] [address] Care Team Providers Care Director Of Pupil Personnel Program Name Role Phone Claudia Prieto MD Primary Care Provider [phone]- [phone] Reason for Visit * Reason Onset Date Comments Lab Orders 01/23/2025 Encounter Details Date Type Department Care Team ([facility] st Contact Info) Description 01/23/[address] [facility] MEDICINE [address] [place], [place] [phone] Claudia Prieto MD [address] [place], [place] [phone] Lab Orders Social History Tobacco Use Types Packs/Day Years [...] encounter Miscellaneous Notes * Telephone Encounter - Cuco Charles [place] - 01/23/2025 1:46 PM EDT Incoming call from [facility] asking for an order for CT/NG for the collection tube pink top received. Order faxed to [phone]. documented in this encounter Plan of Treatment Upcoming Encounters Date Type Department Care Team (Late st Contact Info) Description 03/08/2025 2:30 PM EDT Office Visit [facility] OPTOMETRY [address] [place] [address] Ama Jarquin, OD [address] [place] [address] documented as of this encounter Visit Diagnoses Not on filedocumented in this encounter Additional Health Concerns Assessment Noted Time PHQ-9 Depression Total Score: 0 01/20/20 25 9:12 AM EDT documented as of this encounter Care Teams Director Of Pupil Personnel Program Relationship Specialty Start Date End Date Claudia Prieto MD [address] [place] [address] PCP - General Family Medicine 10/04/18 Ivis Medel, DO [address] [place] [address] Gynecology 10/17/24 documented as of this encounter
--- OUTSIDE RECORDS SUMMARY | 2025-01-23 16:37 | XMS_ITS | Data Portability ---
Author Organization [place] [facility] Address [address] [facility] [address] [place] [phone] Care Team Providers Care Director Of Athletics Name Role Phone MIRI, BAR Primary Care Provider Assessment Encounter Date Assessment Date Assessment LastModified by Organization Details LastModified Time 01/09/2025 01/09/2025 39-year-old female presents for evaluation of the tonsils. Patient was seen at [facility] for first peritonsillar abscess, and required [...] Address Organization Details Recorded Time Peritonsillar abscess 85698701 Active 2024 JUDITH HERNANDEZ PA-C [address] [facility] [address], [place], [address], [place] [facility] 12:59:22 Problem Notes None recorded. Medical Equipment None Reported. Allergies Allergen ID Allergen Name Allergen Category Reaction Reaction Severity Criticality Documentation Date Start Date Code Code System Note Provider Name and Address Organization Details Recorded Time 778637 Product containin g penicilli n (product) medicatio n Not available Not available Not available 01/09/2025 83085 8001 SNOMED Gwendolyn hernandez [facility] 10:42:20 Medications Name Sig Start Date Stop [...] Updated DateTime 01/09/2025 167.64 cm 25 kg/m2 43915.82 g Gwendolyn Ybarra [facility] 01/09/2025 10:41:56 Social History Question Answer Notes LastModified by Organizat ion Details LastModified Time Tobacco Smoking Status Never Smoker Gwendolyn hernandez [facility] 01/09/2025 10:43:26 What Is Your Level Of [...] Disorder N Anesthesia Complications N Heart Attack ([place]) N Other Skin Condition N Diabetes N [...] SNOMED-CT Code Diagnosis ICD10 Code Diagnosis Note [id number] JUDITH HERNANDEZ PA-C [facility] [address] [place] [address] 01/09/2025 10:28:29 01/09/2025 10:53:45 Peritonsillar abscess 64986392 J36 Health Concerns Section Related Observation LastModified by Organization Detai ls LastModified Time None Recorded Concern Status LastModified by Organization Details LastModified Time None Recorded Advance Directives Directive None Recorded Payers Encounter Date Sequence Insurance Name Policy Number Policy Armijo Covered Member ID Armijo Member ID Guarantor Name 01/09/2025 1 [place]: [facility] [id number] [facility] Notes Date Note Type Note Provider Name and Address Organization Details Recorded Time 01/09/2025 text/html 39-year-old yuly garay presents for evaluation of the tonsils. 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 She was seen at [facility] for throat infection one year ago, cleared with oral antibiotics. Throat infection annually, more severe symptoms in the last 3 ears. She reports associated difficulty swallowing and unable to eat during active infection. Asymptomatic today. No past medical history. No prior head or neck surgery. Non-smoker. JUDITH HERNANDEZ PA-C [address] [place] [address], [phone], [facility] - [facility] 01/09/2025 12:59:43 OBGyn Episode No OBEpisode recorded.
== END 2025-01-19 00:01 | disposition home or self-care (01) ==
LOC: HO.HHCLNP
PROVIDERS: Visit Provider Family Medicine
DX: Z11.3 Encounter for screening for infections with a predominantly sexual mode of transmission (principal)
CPT/HCPCS: 87491; 87591

== ENCOUNTER 2025-01-19 09:55 | Outpatient (REF) | payer MEDICAID, SELFPAY ==
--- OUTSIDE RECORDS SUMMARY | 2025-01-19 10:38 | XMS_ITS | Data Portability ---
Author Organization [place] - [facility], Allergy Address [address] [facility] [address] [place] [address] Care Team Providers Care Process Plant Operator Name Role Phone MIRI, BAR Primary Care Provider Assessment Encounter Date Assessment Date Assessment LastModified by Organization Details LastModified Time 01/09/2025 01/09/2025 39-year-old female presents for evaluation of the tonsils. Patient was seen at [facility] for first peritonsillar abscess, and required I&D. She reports one throat infection annually. Denies sleep disturbance or apneic episodes. Exam demonstrates cryptic tonsils with 1+ hypertrophy. Discussed tonsillectomy is not indicated at this time. Recommend observation and oral antibiotic now probiotic. Patient will return with recurrent pharyngitis or peritonsillar abscess. [email or web address] Not available 01/09/2025 12:59:23 Plan of Treatment Reminders Order Date Submit Date Provider Last Modified By Organization Details Last Modified Time Details Appointments None record ed. Lab None record ed. Referral None record ed. Procedures None record ed. Surgeries None record ed. Imaging None record ed. Medication Orders None record ed. Patient TargetsNo targets recorded. Patient InstructionsNo instructions recorded. Reason for Referral None Reported. Problems Name Problem SNOMED Code Status Onset Date Resolution Date Notes Provider Name and Address Organization Details Recorded Time Peritonsillar abscess 28037503 Active 2024 JUDITH HERNANDEZ PA-C [address] [facility] [address], [place], [address], [place] - [facility] 12:59:22 Problem Notes None recorded. Medical Equipment None Reported. Allergies Allergen ID Allergen Name Allergen Category Reaction Reaction Severity Criticality Documentation Date Start Date Code Code System Note Provider Name and Address Organization Details Recorded Time 831579 Product containin g penicilli n (product) medicatio n Not available Not available Not available 01/09/2025 45231 8001 SNOMED Gwendolyn hernandez [facility] 10:42:20 Medications Name Sig Start Date Stop Date Status Note LastModified by Organization Details LastModified Time acetaminophen 325 mg tablet TAKE 2 TABS BY MOUTH EVERY 4 HOURS NEEDED NEEDED FOR PAIN active Not Available Not Available No t Available clindamycin HCl 300 mg capsule TAKE 1 CAPSULE BY MOUTH EVERY 6 HOURS active Not Available Not Available No t Available ibuprofen 800 mg tablet TAKE 1 TABLET BY MOUTH EVERY 8 HOURS active Not Available Not Available No t Available metronidazole 500 mg tablet TAKE 1 TABLET BY MOUTH EVERY 12 HOURS active Not Available Not Available No t Available doxycycline hyclate 100 mg tablet TAKE 1 TABLET BY MOUTH TWICE A DAY FOR 10 DAYS active Not Available Not Available No t Available simethicone 80 mg chewable tablet CHEW 2 TABLETS BY MOUTH 3 TIMES A DAY NEEDED active Not Available Not Available No t Available oxycodone 5 mg tablet TAKE 1 TABLET BY MOUTH EVERY 6 HOURS NEEDED FOR PAIN active Not Available Not Available No t Available Gavilax 17 gram/dose oral powder TAKE 17 GM BY MOUTH DAILY DISSOLVE IN WATER BEFORE TAKING active Not Available Not Available No t Available Vitals Date Recorded Body height Body mass index (BMI) Body weight Provider Name and Address Organization Details Last Updated DateTime 01/09/2025 167.64 cm 25 kg/m2 63023.82 g Gwendolyn Ybarra [facility] 01/09/2025 10:41:56 Social History Question Answer Notes LastModified by Organizat ion Details LastModified Time Tobacco Smoking Status Never Smoker Gwendolyn hernandez [facility] 01/09/2025 10:43:26 What Is Your Level Of Alcohol Consumption? None [email or web address] Information not available 01/09/2025 Sex: Unknown Functional Status None recorded. Mental Status None recorded. Family History Nothing Reported. Medical History Condition Response Allergies/Hayfever N Heart Problems N Anxiety N Tonsil Infections N Emphysema N Migraines N Thyroid Problems N Glaucoma N Depression N COPD N Developmental Delay N Nasal or Sinus Problems N Anemia N Immune System Disorder N Anesthesia Complications N Heart Attack (OR) N Other Skin Condition N Diabetes N Rhinitis N Bleeding Disorder N Food Allergy N Arthritis N Hearing Loss N Hyperlipidemia N Cancer N Stroke N Dementia N Nasal polyps N Asthma N Sleep Disorder N GERD/Reflux N High Cholesterol N Liver Disease N Headaches N Fibromyalgia N Hypertension N Speech Delay N Kidney Disease N Gynecological HistoryNo gynecological history recorded. Obstetrics History GPAL:G 0 P 0 0 0 0 Past Encounters Encounter ID Performer Location Encounter Start Date Encounter Closed Date Diagnosis/Indication Diagnosis SNOMED-CT Code Diagnosis ICD10 Code Diagnosis Note [id number] JUDITH HERNANDEZ PA-C [facility] [address] [place] [address] 01/09/2025 10:28:29 01/09/2025 10:53:45 Peritonsillar abscess [id number] J36 Health Concerns Section Related Observation LastModified by Organization Detai ls LastModified Time None Recorded Concern Status LastModified by Organization Details LastModified Time None Recorded Advance Directives Directive None Recorded Payers Encounter Date Sequence Insurance Name Policy Number Policy Armijo Covered Member ID Armijo Member ID Guarantor Name 01/09/2025 1 MEDICAID-MD: [facility] [id number] [facility] Notes Date Note Type Note Provider Name and Address Organization Details Recorded Time 01/09/2025 text/html 39-year-old yuly garay presents for evaluation of the tonsils. 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 She was seen at [facility] for throat infection one year ago, cleared with oral antibiotics. Throat infection annually, more severe symptoms in the last 3 ears. She reports associated difficulty swallowing and unable to eat during active infection. Asymptomatic today. No past medical history. No prior head or neck surgery. Non-smoker. JUDITH HERNANDEZ PA-C [address] [place] [address], [id number], [facility] - [facility] 01/09/2025 12:59:43 OBGyn Episode No OBEpisode recorded.
--- OUTSIDE RECORDS SUMMARY | 2025-01-19 10:38 | XMS_ITS | Clinical Summary ---
Author Organization [facility] Address [address] [place] [address] Care Team Providers Care Transcribing Operator Head Name Role Phone Leonardo Gagnon DO Primary Care Provider Surgical History Surgery Date Site/Laterality Comments ECTOPIC [...] age to complete this topic Meningococcal B Vaccine Aged Out No l onger eligible based on patient's age to complete [...] age to complete this topic Care Teams Transcribing Operator Head Relationship Specialty Start Date End Date Leonardo Gagnon DO [address] [address] PCP - General 02/13/15
--- OUTSIDE RECORDS SUMMARY | 2025-01-19 10:38 | XMS_ITS | Encounter Summary ---
Author Organization [facility] Address [address] [facility] 7t [place] [address] Care Team Providers Care Machine Adjuster Name Role Phone Claudia Prieto MD Primary Care Provider +1- [phone] Encounter Details Date Type Department Care Team (Late Contact Info) Description 11/10/2022 Abstract [facility] MEDICINE [address] [place], [place] [phone] Claudia Prieto MD [address] [place], [place] [phone] Social History Tobacco Use Types Packs/Day Years [...] Department Care Team (Late Contact Info) Description 03/08/2025 2:30 PM EDT Office Visit [facility] OPTOMETRY [address] [place], [place] [phone] Ama Jarquin, OD [address] [place] [address] documented as of this encounter Procedures Procedure Name Priority Date/Time Associated Diagnosis Comments PAP SMEAR Routine 10/17/2019 12:00 AM EST documented in this encounter Results * Pap Smear (10/17/2019 12:00 AM EST) Swab us Historical Provider LAB CYTOLOGY ORDERABLES F inal Result IMAGING documented in this encounter Visit Diagnoses Not on filedocumented in this encounter Care Teams Machine Adjuster Relationship Specialty Start Date End Date Claudia Prieto MD [address] [place] [address] PCP - General Family Medicine 10/04/18 Ivis Medel DO [address] [place] [address] Gynecology 10/17/24 documented as of this encounter
--- OUTSIDE RECORDS SUMMARY | 2025-01-19 10:38 | XMS_ITS | Encounter Summary ---
Author Organization [facility] Address [address] [facility] 7[address] [place] [address] Care Team Providers Care White Shoe Ragger Name Role Phone Claudia Prieto MD Primary Care Provider +1- [phone] Reason for Visit * Reason Onset Date Comments chartprep 01/17/2025 Encounter Details Date Type Department Care Team ([facility] st Contact Info) Description 01/17/2025 Telephone [facility] MEDICINE [address] [place], [place] [phone] Claudia Prieto MD [address] [place], [place] [phone] chartprep Social History Tobacco Use Types Packs/Day Years [...] AM EDT documented as of this encounter Miscellaneous Notes * Telephone Encounter - Janae Maier [place] - 01/17/2025 4:16 PM EDT ..Chart Prep Labs: done Images: not applicable Vaccines due: Covid Due, Hep B Due, and Flu Due Referrals: Not Applicable Screenings: Not Applicable Overdue care gaps: Sbirt, SDOH, PQ9, GAD7, Disability , and Oral Health documented in this encounter Plan of Treatment Upcoming Encounters Date Type Department Care Team (Late st Contact Info) Description 03/08/2025 2:30 PM EDT Office Visit [facility] OPTOMETRY [address] [place] [address] Britton, Ama, OD [address] [place] [address] documented as of this encounter Visit Diagnoses Not on filedocumented in this encounter Additional Health Concerns Assessment Noted Time PHQ-9 Depression Total Score: 1 07/01/20 23 9:58 AM EDT documented as of this encounter Care Teams White Shoe Ragger Relationship Specialty Start Date End Date Claudia Prieto MD [address] [place] [address] PCP - General Family Medicine 10/04/18 Ivis Medel, [address] [place] [address] Gynecology 10/17/24 documented as of this encounter
--- OUTSIDE RECORDS SUMMARY | 2025-01-19 10:38 | XMS_ITS | Encounter Summary ---
Author Organization [facility] Address [address] [facility] 7[address] [place] [address] Care Team Providers Care Local Owner Operator Truck Driver Name Role Phone Claudia Prieto MD Primary Care Provider +1- [phone] Encounter Details Date Type Department Care Team (Latest Contact Info) Description 02/11/2021 Abstract [facility] CONVERSIONS Dental, Provider, DDS Social History [...] Description 03/08/2025 2:30 PM EDT Office Visit [facility] OPTOMETRY [address] [place] [address] Ama Jarquin, OD [address] [place] [address] documented as of this encounter Visit Diagnoses Not on filedocumented in this encounter Care Teams Local Owner Operator Truck Driver Relationship Specialty Start Date End Date Claudia Prieto MD [address] [place] [address] PCP - General Family Medicine 10/04/18 Ivis Medel, DO [address] [place] [address] Gynecology 10/17/24 documented as of this encounter
--- OUTSIDE RECORDS SUMMARY | 2025-01-19 10:38 | XMS_ITS | Encounter Summary ---
Author Organization [facility] Address [address] [facility] 7[address] [place] [address] Care Team Providers Care Orthopedic Coder Name Role Phone Claudia Prieto MD Primary Care Provider +1- [phone] Reason for Visit * Reason Comments PAP Encounter Details Date Type Department Care Team (Latest Contact Info) Description 01/19/2025 9:00 AM EDT Procedure Visit [facility] MEDICINE [address] [place], [place] [phone] Claudia Prieto MD [address] [place], [place] [phone] Dyslipidemia (Primary Dx); Vitamin D deficiency; Depressive disorder; Menorrhagia with regular cycle; Pap smear for cervical cancer screening; Routine screening for STI (sexually transmitted infection); Encounter for immunization; Other specified health status Social History Tobacco Use Types Packs/Day Years Used Date Smoking Tobacco: Never Smokeless Tobacco: Never Alcohol Use Standard Drinks/Week Comments Defer 0 (1 standard drink = 0.6 oz pur e alcohol) Depression Answer Date Recorded Patient Health Questionnaire-9 Score 0 01/19/2025 Patient Health Questionnaire-9 Score 0 01/19/2025 Last PHQ-9: Questionnaire Data Not on file 0 01/19/2025 Housing Stability Answer Date Recorded What is your housing situation today? I have emanuel rodriguez 01/19/[address] you li ve. Do you have problems with any of the following? None of the above 01/19/2025 Food Insecurity Answer Date Recorded Within the past 12 months, y ou worried that your food would run out before you got money to buy more: Never True 01/19/2025 Within the past 12 months,th e food you bought just didn't last and you didn't have enough money to get more: Never True Transportation Answer Date Recorded In the past 12 months, has l ack of transportation kept you from medical appts, meetings, work or from getting things needed for daily living? No 01/19/2025 Utilities Answer Date Recorded In the past 12 months, has t he electric, gas, oil or water company threatened to shut off services in your home? No 01/19/2025 Depression Answer Date Recorded Patient Health Questionnaire-2 Score 0 01/19/2025 Internet Access Answer Date Recorded Internet Access Q1 No 01/19/2025 Internet Access Q2 I do not want or need it 01/02 Comments No Sex and Gender Information Value Date Recorded Sex Assigned at Female 08/03/2022 10:20 AM EDT Legal Sex Female 10:20 AM EDT Gender Identity Female 08/03/2022 10:20 AM EDT Sexual Orientation Straight 08/03/2022 10 :20 AM EDT documented as of this encounter Last Filed Vital Signs Vital Sign Reading Time Taken Comments Blood Pressure 117/78 01/19/2025 9:09 AM EDT Pulse 70 01/19/2025 9:09 AM EDT Temperature 37.1 ??C (98.8 ??F) 01/19/2025 9:09 AM ED T Respiratory Rate 20 01/19/2025 9:09 AM EDT Oxygen Saturation 96% 01/19/2025 9:09 AM EDT Inhaled Oxygen Concentration - - Weight 71.7 kg (158 lb) 01/19/2025 9:09 AM EDT Height 167.6 cm (5' 6 ) 01/19/2025 9:09 AM EDT Body Mass Index 25.5 01/19/2025 9:09 AM EDT documented in this encounter Miscellaneous Notes * Assessment & Plan Note - Akua Jenkins - 01/19/2025 9:50 AM EDTAssociated Problem(s): Depressive disorder No suicidal or homicidal ideation. Referral for psychotherapy and psychiatry offered. -start fluoxetine 20mg po daily 07/23/16 -seen by [facility] to establish with therapist * Assessment & Plan Note - Akua Jenkins - 01/19/2025 9:47 AM EDTAssociated Problem(s): Menorrhagia with regular cycle Reports really heavy cycles with significant cramping, though still regular. -prescribed ibuprofen 600 MG and recommended taking in anticipation of menstruating. -ordered labs 01/19/25 * Assessment & Plan Note - Akua Jenkins - 01/19/2025 9:39 AM EDTAssociated Problem(s): Dyslipidemia Lab Results Component Value Date CHOL 212 (H) 07/08/2023 TRIG 84 07/08/2023 HDL 47 07/08/2023 LDLCHOLCAL 149 (H) 07/08/2023 -continue lifestyle modification -ordered repeat FLP + HFP 01/19/25 * Assessment & Plan Note - Sandeeadela Alice - 01/19/2025 9:34 AM EDTAssociated Problem(s): Vitamin D deficiency -ordered Vit D level 01/19/25 * Assessment & Plan Note - Sandeeadela Alice - 01/19/2025 9:34 AM EDTAssociated Problem(s): Pap smear for cervical cancer screening 10/17/2019 NILM, HPV- 01/19/25 Pap with HPV testing done -STI testing offered, PreP offered -Preventative care and harm reduction discussed * Assessment & Plan Note - Akua Jenkins - 01/19/2025 9:33 AM EDTAssociated Problem(s): Elevated cholesterol (Deleted) Lab Results Component Value Date CHOL 212 (H) 07/08/2023 TRIG 84 07/08/2023 HDL 47 07/08/2023 LDLCHOLCAL 149 (H) 07/08/2023 -continue lifestyle modification -ordered repeat FLP + HFP 01/19/25 * Assessment & Plan Note - Akua Jenkins - 01/19/2025 9:33 AM EDTAssociated Problem(s): Other specified health status -next comprehensive annual evaluation due after 01/19/26 -eye care facilitated by [facility] -dental home is [facility] -[place] care proxy filed 01/19/25 documented in this encounter Plan of Treatment Upcoming Encounters Date Type Department Care Team (Late st Contact Info) Description 03/08/2025 2:30 PM EDT Office Visit [facility] OPTOMETRY [address] [place], [place] [phone] Britton, Ama, OD [address] [place] [address] Scheduled Orders Name Type Priority Associated Diagnoses Orde r Schedule Pap Smear Pathology and Cytology Routine Pap smear for cervical cancer screening Ordered: 01/19/2025 STI testing add on (NG, CT, Trich) Pathology and Cytology Routine Pap smear for cervical cancer screening Ordered: 01/19/2025 Hepatic Function Panel Lab Routine Dyslipidemia Expected: 01/19/2025, Expires: 01/19/2026 Lipid Panel, Standard Lab Routine Dyslipidemia Expected: 01/19/2025, Expires: 01/19/2026 Basic Metabolic Panel Lab Routine Dyslipidemia Expected: 01/19/2025, Expires: 01/19/2026 CBC auto differential Lab Routine Encounter for immunization Expected: 01/19/2025, Expires: 01/19/2026 Vitamin D, 25-Hydroxy, Total, Immunoassay Lab Routine Vitamin D deficiency Expected: 01/19/2025 (Approximate), Expires: 01/19/2026 HIV-1/2 Antigen and Antibodies, Fourth Generation, with Reflexes Lab Routine Routine screening for STI (sexually transmitted infection) Expected: 01/19/2025 (Approximate), Expires: 01/19/2026 Syphilis Screen Lab Routine Routine screening for STI (sexually transmitted infection) Expected: 01/19/2025 (Approximate), Expires: 01/19/2026 Ferritin Lab Routine Menorrhagia with regular cycle Expected: 01/19/2025, Expires: 01/19/2026 Iron And Total Iron Binding Capacity Lab Routine Menorrhagia with regular cycle Expected: 01/19/2025, Expires: 01/19/2026 Hepatitis C Antibody with Reflex to HCV, RNA, Quantitative, Real-Time PCR Lab Routine Routine screening for STI (sexually transmitted infection) Expected: 01/19/2025, Expires: 01/19/2026 documented as of this encounter Visit Diagnoses Diagnosis Dyslipidemia- Primary Other and unspecified hyperlipidemia Vitamin D deficiency Depressive disorder Depressive disorder, not elsewhere classified Menorrhagia with regular cycle Pap smear for cervical cancer screening Screening for malignant neoplasm of the cervix Routine screening for STI (sexually transmitted infection) Screening examination for venereal disease Encounter for immunization Other specified health status documented in this encounter Additional Health Concerns Assessment Noted Time PHQ-9 Depression Total Score: 0 01/20/20 25 9:12 AM EDT documented as of this encounter Care Teams Orthopedic Coder Relationship Specialty Start Date End Date Claudia Prieto MD [address] [place] [address] PCP - General Family Medicine 10/04/18 Ivis Medel, DO [address] [place] [address] Gynecology 10/17/24 documented as of this encounter
--- OUTSIDE RECORDS SUMMARY | 2025-01-19 10:38 | XMS_ITS | Encounter Summary ---
Author Organization [employer] Address [address] [facility] [address] 7t [place] [address] Care Team Providers Care Engineering Recruiter Name Role Phone Claudia Prieto MD Primary Care Provider +1- [phone] Encounter Details Date Type Department Care Team (Latest Contact Info) Description 01/19/2025 Travel Social History Tobacco Use Types Packs/Day Years [...] Description 03/08/2025 2:30 PM EDT Office Visit [facility] OPTOMETRY [address] [place], [place] [phone] Britton, Megan, OD [address] [place] [address] documented as of this encounter Visit Diagnoses Not on filedocumented in this encounter Additional Health Concerns Assessment Noted Time PHQ-9 Depression Total Score: 0 01/20/20 25 9:12 AM EDT documented as of this encounter Care Teams Engineering Recruiter Relationship Specialty Start Date End Date Claudia Prieto MD [address] [place] [address] PCP - General Family Medicine 10/04/18 Ivis Medel, DO [address] [place] [address] Gynecology 10/17/24 documented as of this encounter
--- OUTSIDE RECORDS SUMMARY | 2025-01-19 10:38 | XMS_ITS | Clinical Summary ---
Author Organization [employer] Address [address] [facility] [address] [place] [address] Care Team Providers Care Sky Cap Name Role Phone Claudia Prieto MD Primary Care Provider [phone] Allergies Active Allergy Reactions Criticality Noted Date Comments Penicillins Rash Low 09/10/2022 Medications acetaminophen (Tylenol) 500 MG tabletIndicatio ns:Dental caries Take 1 tablet (500 mg) by mouth every 6 (six) hours if needed for mild pain for up to 15 doses. 15 tablet 09/10/2022 Active ibuprofen 600 MG tabletIndicatio ns:Dental caries Take 1 tablet (600 mg) by mouth every 6 (six) hours if needed for mild pain for up to 15 doses. 15 tablet 09/10/2022 Active ibuprofen 600 MG tabletIndicatio ns:Menorrhagia with regular cycle Take 1 tablet (600 mg) by mouth every 8 (eight) hours if needed for moderate pain or fever. 30 tablet 01/19/2025 02/19/20 25 Active Active Problems Problem Noted Date Diagnosed Date History of peritonsillar abscess 01/19/2025 Overview (01/19/2025): Seen in [facility] 01/05/25 for significant peritonsillar abscess, with trismus and uvula shift. Sent to [facility], treated with abx. Vitamin D deficiency 01/19/2025 Overview (01/19/2025): No results found for: [id number] -ordered Vit D level 01/19/25 Assessment & Plan (01/19/2025 9:34 AM EDT): -ordered Vit D level 01/19/25 Menorrhagia with regular cycle 01/19/2025 Overview (01/19/2025): Reports really heavy cycles with significant cramping, though still regular. -prescribed ibuprofen 600 MG and recommended taking in anticipation of menstruating. -ordered labs 01/19/25 Assessment & Plan (01/19/2025 9:47 AM EDT): Reports really heavy cycles with significant cramping, though still regular. -prescribed ibuprofen 600 MG and recommended taking in anticipation of menstruating. -ordered labs 01/19/25 Screening mammogram for breast cancer 01/19/2025 Dyslipidemia 01/19/2025 Overview (01/19/2025): Lab Results Component Value Date CHOL 212 (H) 07/08/2023 TRIG 84 07/08/2023 HDL 47 07/08/2023 LDLCHOLCAL 149 (H) 07/08/2023 -continue lifestyle modification -ordered repeat FLP + HFP 01/19/25 Assessment & Plan (01/19/2025 9:39 AM EDT): Lab Results Component Value Date CHOL 212 (H) 07/08/2023 TRIG 84 07/08/2023 HDL 47 07/08/2023 LDLCHOLCAL 149 (H) 07/08/2023 -continue lifestyle modification -ordered repeat FLP + HFP 01/19/25 Hydrosalpinx 01/05/2025 Pap smear for cervical cancer screening 11/16/19 25 Overview (01/19/2025): 10/17/2019 NILM, HPV- 01/19/25 Pap with HPV testing done -STI testing offered, PreP offered -Preventative care and harm reduction discussed Assessment & Plan (01/19/2025 9:34 AM EDT): 10/17/2019 NILM, HPV- 01/19/25 Pap with HPV testing done -STI testing offered, PreP offered -Preventative care and harm reduction discussed Left tubo-ovarian abscess 02/15/2024 Overview (01/19/2025): Seen in ER 02/13/24 for abdominal pain, diagnosed with left tubo ovarian abscess. Seen by [employer] in ER and started on antibiotics with recommend follow up with Manager Of Environmental Services as outpatient. Pelvic US IMPRESSION: A complex rounded lesion within the left adnexa with peripheral vascularity measuring up to 3.3 x 3.0 x 3.2 cm in transverse diameter. Likely heterogeneous fluid contained centrally within this lesion with thickened periphery. Finding could represent changes of left tubo-ovarian abscess in the correct clinical setting. Recommend OBGYN consultation and consideration for improved characterization with MRI imaging of the female pelvis with IV contrast. Deformity of bone of foot 07/01/2023 Left foot pain 07/01/2023 Overview (07/01/2023): Podiatry referral done 07/01/2023 Assessment & Plan (07/01/2023 10:34 AM EDT): Podiatry referral done 07/01/2023 Other specified health status 06/24/2023 Overview (01/19/2025): -next comprehensive annual evaluation due after 01/19/26 -eye care facilitated by [facility] is [facility] care proxy filed 01/19/25 Assessment & Plan (01/19/2025 9:33 AM EDT): -next comprehensive annual evaluation due after 01/19/26 -eye care facilitated by [facility] is [facility] care proxy filed 01/19/25 Assessment & Plan (07/01/2023 10:21 AM EDT): -next physical exam due after 07/01/2024 -eye care facilitated by dental home is Back strain 06/20/2012 Depressive disorder 06/20/2012 Overview (06/24/2023): No suicidal or homicidal ideation. Referral for psychotherapy and psychiatry offered. -start fluoxetine 20mg po daily 07/23/16 -seen by [facility] to establish with therapist Assessment & Plan (01/19/2025 9:50 AM EDT): No suicidal or homicidal ideation. Referral for psychotherapy and psychiatry offered. -start fluoxetine 20mg po daily 07/23/16 -seen by [facility] to establish with therapist Assessment & Plan (06/24/2023 9:34 AM EDT): No suicidal or homicidal ideation. Referral for psychotherapy and psychiatry offered. -start fluoxetine 20mg po daily 07/23/16 -seen by [facility] to establish with therapist Gastroesophageal reflux disease 06/20/2012 Knee pain 06/20/2012 Resolved Problems Problem Noted Date Diagnosed Date Resolved Date Bacterial vaginosis 07/01/2023 10/17/19 Dental caries 09/10/2022 10/17/2024 Encounters Date Type Department Care Team Description 01/19/2025 9:00 AM EDT Procedure Visit [facility] [address] [place] [address] [phone] Claudia Prieto MD Dyslipidemia (Primary Dx); Vitamin D deficiency; Depressive disorder; Menorrhagia with regular cycle; Pap smear for cervical cancer screening; Routine screening for STI (sexually transmitted infection); Encounter for immunization; Other specified health status 01/19/2025 Travel 01/17/2025 Telephone [facility] [address] [place] [phone] Claudia Prieto MD chartprep 01/08/2025 Telephone [facility] [address] [place] [address] [phone] Claudia Prieto MD Results; Medication Question 01/05/2025 10:20 AM EDT Office Visit [facility] [address] [place] [address] [phone] Stephania Garcia MD Peritonsillar abscess determined by examination (Primary Dx); Sore throat; Dietary counseling; Exercise counseling 01/05/2025 Orders Only GENERIC EXTERNAL DATA DEPARTMENT Provider, Generic External Data 12/27/2024 Population Health Risk Score [facility] (C3) Department [address] [place] [address] [phone] Provider, Population Health Generic 11/21/2024 Telephone [facility] [address], [place] [phone] Claudia Prieto MD Appointment Confirmation (I book the appointment on 01/19/2025 at 9:00 am for PAP.) 11/21/2024 Travel 11/16/2024 Telephone [facility] [address], [place] [phone] Claudia Prieto MD 11/10/2024 Telephone [facility] [address], [place] [phone] Janae Maier MA chartprep from Last 3 Months Immunizations Name Administration Dates Next Due Hep B, adult 01/19/2025 Influenza injectable quadriv alent IIV4 with preservative 07/23/2016 Influenza injectable quadrivalent preservative f ree 07/01/2023,10/05/2019 Influenza, Split (incl. purified surface antigen ) 06/20/2012 Pfizer Covid-19 Vaccine 12+ 01/19/2025 Tdap 01/19/2025,06/20/2012 Family History Medical History Relation Name Comments Hypertension Father Relation Name Status Comments Father Social History Tobacco Use Types Packs/Day Years [...] Mass Index 25.5 01/19/2025 9:09 AM EDT Plan of Treatment Upcoming Encounters Date Type Department Care Team (Late st Contact Info) Description 03/08/2025 2:30 PM EDT Office Visit [facility] [address] [place] [address] Ama Jarquin, OD [address] [place] [address] Health Maintenance Due Date Last Done Comments Dental Oral Exam 1986 Dental Prophylaxis 1986 Dental X-Ray: Bitewings 1986 Dental X-Ray: Full Mouth 1986 Cervical Cancer Screening 10/17/2024 HPV/Cotest 10/17/2024 10/05/2019 Pap Smear 10/17/2024 10/17/2019 Hepatitis B Vaccines (2 of 3 - 19+ 3-dose series) 02/16/2025 01/19/2025 Influenza Vaccine (#1) 2025 3, 10/05/2019, 07/23/2016, Additional history exists Postponed from 06/04/2024 (Supply/Drug Shortage) Alcohol/Substance Use Screening 01/19/2026 01/19/2025 Depression Screening 01/19/2026 01/19/2025, 01/20/20 25 Family Planning (PISQ) 01/19/2026 01/19/2025 SDOH Screening 01/19/2026 01/19/2025 Tobacco Screening 01/19/2026 01/19/2025 DTaP/Tdap/Td Vaccines (3 - Td or Tdap) 01/19/2035 01/19/2025, 06/20/2012 Zoster Vaccines (1 of 2) 2036 RSV Patients and Patients Aged 60 years or older (1 - 1-dose 75+ series) 2061 HIV Screening Completed 07/08/2023, 10/05/2019 Hepatitis C Screening Completed 07/08/2023, 020 COVID-19 Vaccine Completed 01/19/2025, , 03/12/2021, Additional history exists HIB Vaccines Aged Out No longer eligi [...] Procedure Name Priority Date/Time Associated Diagnosis Comments GRAM STAIN Routine 01/05/2025 12:57 PM EDT HCG, TOTAL, QN Routine 01/05/2025 11:13 [...] Recently Relevant to Health Maintenance Results * Gram stain (01/05/2025 12:57 PM EDT) 01/05/2025 12:5 7 PM EDT 01/05/2025 1:03 PM EDT Comment:Ab Periton Narrative [facility] - 01/07/2025 8:26 AM EDT Test not performed Not appropriate for specimen source Streptococcus pyogenes (Grp A) Quant Org ID [id number] 01/06/25 SUSCEPTIBILITY ADDED PER RUPERT. 01/07/25 CEFTRIAXONE REPORTED PER JUNE Streptococcus pyogenes (Grp A): Ampicillin Strep <=0.25(S) Streptococcus pyogenes (Grp A): Ceftriaxone null(S) Streptococcus pyogenes (Grp A): Clindamycin Strep >=1(R) Streptococcus pyogenes (Grp A): Erythromycin >=8(R) Streptococcus pyogenes (Grp A): Penicillin-G <=0.06(S) Specimen Source: Abscess Peritonsillar us Generic External Data Provider LAB MICROBIOLOGY - GENERAL ORDERABLES Final Result Performing Organization Address City/State/[facility] Co de Phone Number [facility] [address] [place] [address] [phone] * (ABNORMAL) CBC auto differential (01/05/2025 11:13 AM EDT) White Blood Count 13.8(H) 4.8 - 10.8 X10*3/uL [facility] Red Blood Count 3.95(L) 4.20 - 5.50 X10*6/uL [facility] Hemoglobin 12.8 12.0 - 16.0 g/dl [facility] Hematocrit 36.6(L) 37.0 - 47.0 % [facility] Mean Corpuscular Volume 92.7 80.0 - 98.0 fL [facility] Mean Corpuscular Hemoglobin 32.4 27.0 - 33.0 pg [facility] Mean Corpuscular HGB Conc 35.0 31.0 - 35.0 g/dl [facility] Red Cell Distribution Width 12.8 11.0 - 16.0 % [facility] Platelet Count 249 160 - 400 X10*3/uL [facility] Mean Platelet Volume 10.2 9.4 - 12.3 fL [facility] Neutrophils Percent Auto 80.4(H) 45 - 73 % [facility] Imm Gran Pct Auto 0.6(H) 0.0 - 0.4 % [facility] Lymphocytes Percent Auto 12.7(L) 20 - 40 % [facility] Monocytes Percent Auto 5.4 2 - 11 % [facility] Eosinophils Percent Auto 0.4 0 - 4 % [facility] Basophils Percent Auto 0.5 0 - 2 % [facility] NRBC Pct Auto 0.0 0.0 - 0.2 /100WBC [facility] Neutrophils Absolute Auto 11.1(H) 2.0 - 8.3 x10*3/uL [facility] Imm Gran Abs Auto 0.08(H) 0.00 - 0.03 X10*3/uL [facility] Lymphocytes Absolute Auto 1.8 1.2 - 4.9 X10*3/uL [facility] Monocytes Absolute Auto 0.8 0.1 - 1.2 X10*3/uL [facility] Eosinophils Absolute Auto 0.1 0.0 - 0.4 X10*3/uL [facility] Basophils Absolute Auto 0.1 0.0 - 0.2 X10*3/uL [facility] NRBC Abs Auto 0.000 0.0 - 0.012 X10*3/uL [facility] 01/05/2025 11:1 3 AM EDT 01/05/2025 11:16 AM EDT us Generic External Data Provider LAB BLOOD ORDERAB LES Final Result [facility] [address] [place] [phone] * (ABNORMAL) Sed Rate by Modified Jose D (01/05/2025 11:13 AM EDT) Erythrocyte Sedimentation Rate 54(H) 0 - 20 MM/HR [facility] Comment:Patients with polycy themia and many hemoglobin abnormalitiesmay have depressed sed rates whereas patients with anemiamay have elevated sed rates. 01/05/2025 11:1 3 AM EDT 01/05/2025 11:16 AM EDT Generic External Data Provider LAB BLOOD ORDERAB LES Final Result Performing Organization Address City/[facility]/ZIP Co de Phone Number [facility] [address] [place] [address] [phone] * (ABNORMAL) C-reactive Protein (01/05/2025 11:13 AM EDT) C Reactive Protein 14.70(H) < or = 0.50 mg/dL [facility] 01/05/2025 11:1 3 AM EDT 01/05/2025 11:16 AM EDT Generic External Data Provider LAB BLOOD ORDERAB LES Final Result Performing Organization Address [facility] Co de Phone Number [facility] [address] [place] [address] [phone] * hCG, Total, Quantitative (01/05/2025 11:13 AM EDT) HCG Quantitative <2 mIU/mL [facility] Comment:Weeks post LMP Appro ximate hCG(Last Menstrual Period) Range (mIU/ml)3 - 4 weeks 9 - 1304 - 5 weeks 75 - 2,6005 - 6 weeks 850 - 20,8006 - 7 weeks 4000 - 100,2007 - 12 weeks 11,500 - 289,15084 - 16 weeks 18,300 - 137,87073 - 29 weeks (2nd trimester) 1,400 - 53,39083 - 41 weeks (3rd trimester) 940 - [...] ORDERAB LES Final Result Performing Organization Address City/[facility]/ZIP Co de Phone Number [facility] [address] [place] [address] [phone] * Magnesium (01/05/2025 11:13 AM EDT) Magnesium 2.2 1.6 - 2.6 mg/dL [facility] 01/05/2025 11:1 3 AM EDT 01/05/2025 11:16 AM EDT us Generic External Data Provider LAB BLOOD ORDERAB LES Final Result Performing Organization Address [facility]/ZIP Co de Phone Number [facility] [address] [place] [address] [phone] * (ABNORMAL) Comprehensive Metabolic Panel (01/05/2025 11:13 AM EDT) Sodium 142 135 - 145 mmol/L [facility] Potassium 3.3 3.3 - 5.1 mmol/L [facility] Chloride 108 96 - 108 mmol/L [facility] Carbon Dioxide 27 22 - 29 mmol/L [facility] Anion Gap 10(L) 12 - 20 [facility] Urea Nitrogen (BUN) 8(L) 9 - 16 mg/dL [facility] Creatinine, Serum 0.61 0.5 - 1.4 mg/dL [facility] Creatinine Clr Calc Pharmacy 117.0 [facility] Comment:Provided height and weight: 167.64 cm,70.2 kg.eGFR (calculated from the MDRD study equation) and eCrCl(calculated from the Cockcroft-Gault equation) are based ondifferent parameters and may not yield comparable results.If eCrCl result is absurd, please check patient'sheight/weight. Estimated Glomerular Filt Rate >60 [facility] Comment:Chronic Kidney Disea se: Estimated GFR < 60 mL/min/1.09o0Dgkxgb Kidney Disease: Estimated GFR < 15 mL/min/1.73m2 Glucose 90 60 - 115 mg/dL [facility] Calcium 8.8 8.4 - 10.2 mg/dL [facility] Bilirubin, Total 0.4 0.0 - 1.0 mg/dL [facility] Aspartate Amino Transferase 18 5 - 31 U/L [facility] Alanine Aminotransferase 20 0 - 31 U/L [facility] Total Protein 7.0 6.5 - 8.0 g/dL [facility] Albumin Level 3.6 3.5 - 5.0 g/dL [facility] Alkaline Phosphatase 91 39 - 117 U/L [facility] 01/05/2025 11:1 3 AM EDT 01/05/2025 11:16 AM EDT us Generic External Data Provider LAB BLOOD ORDERAB LES Final Result Performing Organization Address City/[facility]/ZIP Co de Phone Number [facility] [address] [place] [address] [phone] * Influenza B (ID NOW Rapid Molecular) (01/05/2025 10:27 AM EDT) Influenza B Negative Negative, Indeterminate [facility] QC Media Lot # [id number] [facility] Lot# Expiration Date ,026 [facility] Swab 01/05/2025 10:2 7 AM EDT us Stephania Garcia MD POINT OF CARE TEST ENTER/EDIT ORDERABLES Final Result Performing Organization Address City/[facility]/ZIP Co de Phone Number [facility] [address] [place] [address] [phone] * Influenza A (ID NOW Rapid Molecular) (01/05/2025 10:27 AM EDT) Influenza A Negative Negative, Indeterminate [facility] QC Media Lot # [id number] [facility] Lot# Expiration Date [facility] Swab 01/05/2025 10:2 7 AM EDT Stephania Garcia MD POINT OF CARE TEST ENTER/EDIT ORDERABLES Final Result Performing Organization Address City/[facility]/ZIP Co de Phone Number [facility] [address] [place] [address] [phone] * POCT Rapid COVID Ag (01/05/2025 10:27 AM EDT) [facility] Rapid COVID Ag Negative QC Media Lot # [id number] Lot# Expiration Date Swab 01/05/2025 10:2 7 AM EDT Result [facility] Stephania Garcia MD POINT OF CARE TEST ENTER/EDIT ORDERABLES Final Result * (ABNORMAL) POCT rapid strep A manually resulted (01/05/2025 10:27 AM EDT) [facility] Rapid Strep A Screen Positive( A) Negative, None Detected QC Media Lot # [id number] Lot# Expiration Date Swab 01/05/2025 10:2 7 AM EDT Result [facility] Stephania Garcia MD POINT OF CARE TEST ENTER/EDIT ORDERABLES Final Result * Hepatitis C Ab (07/08/2023 10:10 AM EDT) [facility] Hepatitis C Antibody Nonreactive Nonreactive [facility] Comment:Antibodies to HCV no t detected; does not exclude early acuteHCV infection. Blood 07/08/2023 10:1 0 AM EDT 07/08/2023 11:27 AM EDT Claudia Prieto MD LAB BLOOD ORDERABLES Final Result [facility] [address] [place] [phone] * HIV Ab/Ag (NETTA AMATO) (07/08/2023 10:10 AM EDT) HIV AB/AG Nonreactive Nonreactive [facility] Comment:HIV-1 p24 Ag and/or HIV-1/HIV-2 Ab not detected.A test result that is nonreactive does not exclude thepossibility of exposure to or infection with HIV-1 and/orHIV-2. Nonreactive results in this assay for individualswith prior exposure to HIV-1 and/or HIV-2 may be due toantigen and antibody levels that are below the limit ofdetection of this assay.The [employer] HIV Ag/Ab Combo assay result andsupplemental assay results should be interpreted inconjunction with the patient's clinical presentation,history and other laboratory results. If the results areinconsistent with clinical evidence, additional testing issuggested to confirm the result. 07/08/2023 10:1 0 AM EDT 07/08/2023 11:27 AM EDT Claudia Prieto MD LAB BLOOD ORDERABLES Final Result Performing Organization Address [facility]/ZIP Co de Phone Number [facility] [address] [place] [phone] * Pap Smear (10/17/2019 12:00 AM EST) Swab Historical Provider LAB CYTOLOGY ORDERABLES F inal Result Performing Organization Address City/[facility]/ZIP Co de Phone Number IMAGING * HPV E6/E7 RFLX KELLY 16 18/45 (10/05/2019 3:19 PM EST) ADDITIONAL TESTING Not indicated () [facility] Comment: Test Performed by Edgardo Medina, [facility], [address] [place] [address] Jaya Melgar M.D., Ph.D., Director of Laboratories , [facility] [id number] HPV 16 RNA Test not performed [facility] HPV 18/45 RNA Test not performed [facility] HPV mRNA E6/E7 Not Detected NOT DETECTED [facility] Comment: This test was performed using the APTIMA(R) HPV Assay ([employer] This assay detects E6/E7 viral messenger RNA (mRNA) from 14 high-risk HPV types (16,18,31,33,35,39,45,51, 52,56,58,59,66,68). For additional information please refer to: http://education.[employer]/faq/JMU611h8 (This link is being provided for informational/ educational purposes only.) The analytical performance characteristics of this assay have been determined by [place]. The modifications have not been cleared or approved by the FDA. This assay has been validated pursuant to the CLIA regulations and is used for clinical purposes. Please note: ??Effective 06/15/2016, HPV testing will be performed using [employer]'s APTIMA test which targets mRNA. Detecting mRNA instead of DNA, as in older methods, offers significant improvements in specificity. 10/05/2019 3:19 PM EST us Claudia Prieto MD HISTORICAL/NON ORDERABLE L ABS Final Result [facility] [address] from Last 3 Months or Most Recently Relevant to Health Maintenance Insurance [facility] C3 [place]-[employer] MEDICAID STAND ADULT * Guarantor: Hardik Hester Account Type Relation to Patient Date of Phone Billing Address Personal/Family Self [address] [place] Care Teams Sky Cap Relationship Specialty Start Date End Date [place], [place] [employer] [address] [place] [address] [phone] PCP - General Family Medicine 10/04/18 Ivis Medel, DO [address] [place], [place] [phone] Gynecology 10/17/24
[2025-01-19 11:22] LABS: MANUAL DIFF FLAG NO
[2025-01-19 11:27] LABS: Basophils Percent Auto 0.6 % (0-2); Eosinophils Absolute Auto 0.1 X10*3/uL (0.0-0.4); Hematocrit 38.1 % (37.0-47.0); Hemoglobin 12.8 g/dl (12.0-16.0); Imm Gran Abs Auto 0.03 X10*3/uL (0.00-0.03); Imm Gran Pct Auto 0.4 % (0.0-0.4); Lymphocytes Absolute Auto 1.7 X10*3/uL (1.2-4.9); Lymphocytes Percent Auto 25.8 % (20-40); Mean Corpuscular HGB Conc 33.6 g/dl (31.0-35.0); Mean Corpuscular Volume 95.3 fL (80.0-98.0); Mean Platelet Volume 11.2 fL (9.4-12.3); Monocytes Absolute Auto 0.3 X10*3/uL (0.1-1.2); Monocytes Percent Auto 4.5 % (2-11); Neutrophils Absolute Auto 4.5 x10*3/uL (2.0-8.3); Neutrophils Percent Auto 67.7 % (45-73); Platelet Count 308 X10*3/uL (160-400); Red Cell Distribution Width 12.5 % (11.0-16.0); White Blood Count 6.7 X10*3/uL (4.8-10.8)
[2025-01-19 12:02] LABS: Alanine Aminotransferase 20 U/L (0-31); Albumin Level 3.6 g/dL (3.5-5.0); Anion Gap 8 (12-20); Aspartate Amino Transferase 21 U/L (5-31); Bilirubin Direct 0.2 mg/dL (0.0-0.5); Bilirubin Total 0.4 mg/dL (0.0-1.0); Blood Urea Nitrogen 10 mg/dL (9-16); Calcium 8.5 mg/dL (8.4-10.2); Carbon Dioxide 27 mmol/L (22-29); Chloride 111 mmol/L (96-108); Cholesterol 173 mg/dL (<200); Estimated Glomerular Filt Rate > 60; Glucose Random 92 mg/dL (60-115); HDL Cholesterol 38 mg/dL (>40); Iron 61 mcg/dL (30-160); LDL Cholesterol Calculated 125 mg/dL (<100); Percent Iron Saturation 22 % (15-50); Potassium 4.1 mmol/L (3.3-5.1); Sodium 142 mmol/L (135-145); Total Iron Binding Capacity 272 mcg/dL (228-428); Total Protein 6.9 g/dL (6.5-8.0); Triglycerides 53 mg/dL (<150); Unsaturated Iron Binding 211 ug/dL
[2025-01-19 12:04] LABS: Ferritin 67 ng/mL (10-122); Vitamin D 25-OH Total 28.9 ng/mL (>30)
[2025-01-19 19:47] LABS: Alkaline Phosphatase 82 U/L (39-117)
[2025-01-20 08:11] LABS: HIV AB/AG Nonreactive (Nonreactive); HIV Num 1 0.06 S/CO (0.00-0.99); ~HepC Num1 0.29 S/CO (0.00-0.79); ~Hepatitis C Antibody Nonreactive (Nonreactive)
[2025-01-20 08:34] LABS: Syphilis Screen Nonreactive (Nonreactive)
[2025-01-27 15:18] LABS: HPV Genotype 16 Negative (Negative); HPV Genotype 18 Negative (Negative); HPV High Risk Negative (Negative)
== END 2025-01-19 09:56 | disposition home or self-care (01) ==
LOC: HO.HHCL 09:55
PROVIDERS: Visit Provider Family Medicine
DX: Z12.4 Encounter for screening for malignant neoplasm of cervix (principal); Z23 Encounter for immunization; Z11.3 Encounter for screening for infections with a predominantly sexual mode of transmission; N92.0 Excessive and frequent menstruation with regular cycle; E78.5 Hyperlipidemia, unspecified; E55.9 Vitamin D deficiency, unspecified
CPT/HCPCS: 36415; 80048; 80061; 80076; 82306; 82728; 83540; 85025; 86780; 86803; 87389; 87626; 88175

== ENCOUNTER 2025-06-12 14:52 | Outpatient (REF) | payer MEDICAID, SELFPAY ==
--- OUTSIDE RECORDS SUMMARY | 2025-02-28 11:00 | XMS_ITS | Encounter Summary ---
Author Organization [employer] Address [address] [place] [address] [address] [place] [address] Care Team Providers Care Chart Picker Name Role Phone Claudia Prieto MD Primary Care Provider [phone]- [phone] Reason for Referral * Imaging (Routine) - Authorized Specialty Diagnoses / Procedures Referred By Contac t Referred To Contact Radiology Diagnoses Lower abdominal pain Procedures Us Pelvis complete Claudia Prieto MD [address] [place] [address] Phone: tel: fax: [address] Phone: tel: fax: Referral ID Status Reason Start Date Expiration Date V isits Requested Visits Authorized [id number] Authorized 02/28/2025 02/28/2026 1 1 * Imaging (Routine) - Authorized Specialty Diagnoses / Procedures Referred By Contac t Referred To Contact Radiology Diagnoses Lower abdominal pain Procedures US Pelvis Transvaginal Claudia Prieto MD [address] [place] [address] Phone: tel: fax: [address] Phone: tel: fax: Referral ID Status Reason Start Date Expiration Date V isits Requested Visits Authorized [id number] Authorized 02/28/2025 02/28/2026 1 1 Encounter Details Date Type Department Care Team (Latest Contact Info) Description 02/28/2025 11:00 AM EDT Office Visit [facility] MEDICINE [address] [place] [address] Claudia Prieto MD [address] [place] [address] Pharyngitis, unspecified etiology (Primary Dx); Menorrhagia with regular cycle; Vitamin D deficiency; History of peritonsillar abscess; Dyslipidemia; Encounter for immunization; Lower abdominal pain; Left tubo-ovarian abscess Social History Tobacco Use Types Packs/Day Years Used Date Smoking Tobacco: Never Passive Smoke Exposure: Never Smokeless Tobacco: Never Tobacco Cessation:Counseling Given: [...] your housing situation today? I have emanuel jennifer 01/19/[address] you li [...] Sign Reading Time Taken Comments Blood Pressure 120/84 02/28/2025 11:11 AM EDT Pulse 104 02/28/2025 11:11 AM EDT Temperature 36.7 C (98.1 F) 02/28/2025 11:11 AM EDT Respiratory Rate 18 02/28/2025 11:11 AM EDT Oxygen Saturation - - Inhaled Oxygen Concentration - - Weight 71.3 kg (157 lb 2 oz) 02/28/2025 11:11 AM EDT Height 167.6 cm (5' 6 ) 02/28/2025 11:11 AM EDT Body Mass Index 25.36 02/28/2025 11:11 AM EDT documented in this encounter Functional Status * Over the last 2 weeks, how often have you been bothered by any of the following problems? Question Answer Date of Assessment Author Feeling nervous, anxious, or on edge 0 02/02 11:13 AM EDT Cuco Charles [place] Not being able to stop or co ntrol worrying 0 02/28/2025 11:13 AM EDT Cuco Charles M A Worrying too much about diff erent things 0 02/28/2025 11:13 AM EDT Cuco Charles M A Trouble relaxing 0 02/28/2025 11:13 AM EDT Cuco Charles [place] Being so restless that it is hard to sit still 0 02/28/2025 11:13 AM EDT Cuco Charles M A Becoming easily annoyed or irritable 0 02/02 11:13 AM EDT Cuco Charles [place] Feeling afraid as if somethi ng awful might happen 0 02/28/2025 11:13 AM EDT Cuco Charles M A ANNE MARIE-7 Total Score 0 02/28/2025 11:13 AM EDT Cuco Charles [place] documented as of this encounter Progress Notes * Claudia Prieto MD - 02/28/2025 11:00 AM EDT Subjective Patient ID: Hardik Hester is a 39 y.o. female with past medical history of tonsillar abscess and depression who presents for ongoing sore throat. Had recent labs done 01/19/25. Pot treated for LEFT peritonsillar abscess 01/05/25 with incision and drainage. See inurgent care sent in for further evaluation handling own saliva no difficulty with speech able to swallow no shortness of breath. 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 ER spoke to her and she stated that she is not sure what her PCN reaction is. Ceftriaxone prescribed. She reports continued throat pain on the RIGHT (opposite of abscess) side for 3 days. She is concerned her strep has returned. She reports 2 months of lower midline abdominal pain. Normal menses. No nausea, vomiting, diarrhea. Review of Systems Constitutional: Negative for fever. Respiratory: Negative for choking, shortness of breath, wheezing and stridor. Objective Visit Vitals BP 120/84 (BP Location: Left arm, Patient Position: Sitting, BP Cuff Size: Adult) Pulse 104 Temp 98.1 ??F (36.7 ??C) (Oral) Resp 18 Body mass index is 25.36 kg/m??. Physical Exam Constitutional: Appearance: Normal appearance. HENT: Right Ear: Tympanic membrane normal. Left Ear: Tympanic membrane normal. Nose: No congestion. Mouth/Throat: Pharynx: Oropharynx is clear. No oropharyngeal exudate. Comments: Erythemia right > left op, no exudate Eyes: Conjunctiva/sclera: Conjunctivae normal. Cardiovascular: Rate and Rhythm: Normal rate and regular rhythm. Heart sounds: Normal heart sounds. Pulmonary: Effort: Pulmonary effort is normal. Breath sounds: Normal breath sounds. Abdominal: General: There is no distension. Palpations: There is no mass. Tenderness: There is no guarding. Hernia: No hernia is present. Comments: Mild tenderness below umbilicus with deep palpation. Musculoskeletal: Cervical back: Normal range of motion. No rigidity or tenderness. Lymphadenopathy: Cervical: Cervical adenopathy present. Neurological: Mental Status: She is alert. Psychiatric: Behavior: Behavior normal. Office Visit on 02/28/2025 Component Date Value Rapid Strep A Screen 02/28/2025 Positive (A) QC Media Lot # 02/28/2025 [id number] Lot# Expiration Date 02/28/2025 [id number] Orders Only on 01/19/2025 Component Date Value HPV High Risk 01/19/2025 Negative HPV Genotype 16 01/19/2025 Negative HPV Genotype 18 01/19/2025 Negative Procedure Visit on 01/19/2025 Component Date Value Bilirubin, Total 01/19/2025 0.4 Bilirubin, Direct 01/19/2025 0.2 Aspartate Amino Transfer* 01/19/2025 21 Alanine Aminotransferase 01/19/2025 20 Total Protein 01/19/2025 6.9 Albumin Level 01/19/2025 3.6 Alkaline Phosphatase 01/19/2025 82 Triglycerides 01/19/2025 53 Cholesterol 01/19/2025 173 LDL Cholesterol Calculat* 01/19/2025 125 (H) HDL Cholesterol 01/19/2025 38 (L) Sodium 01/19/2025 142 Potassium 01/19/2025 4.1 Chloride 01/19/2025 111 (H) Carbon Dioxide 01/19/2025 27 Anion Gap 01/19/2025 8 (L) Urea Nitrogen (BUN) 01/19/2025 10 Creatinine, Serum 01/19/2025 0.59 Estimated Glomerular Richardson* 01/19/2025 >60 Glucose 01/19/2025 92 Calcium 01/19/2025 8.5 White Blood Count 01/19/2025 6.7 Red Blood Count 01/19/2025 4.00 (L) Hemoglobin 01/19/2025 12.8 Hematocrit 01/19/2025 38.1 Mean Corpuscular Volume 01/19/2025 95.3 Mean Corpuscular Hemoglo* 01/19/2025 32.0 Mean Corpuscular HGB Conc 01/19/2025 33.6 Red Cell Distribution Wi* 01/19/2025 12.5 Platelet Count 01/19/2025 308 Mean Platelet Volume 01/19/2025 11.2 Neutrophils Percent Auto 01/19/2025 67.7 Imm Gran Pct Auto 01/19/2025 0.4 Lymphocytes Percent Auto 01/19/2025 25.8 Monocytes Percent Auto 01/19/2025 4.5 Eosinophils Percent Auto 01/19/2025 1.0 Basophils Percent Auto 01/19/2025 0.6 NRBC Pct Auto 01/19/2025 0.0 Neutrophils Absolute Auto 01/19/2025 4.5 Imm Gran Abs Auto 01/19/2025 0.03 Lymphocytes Absolute Au* 01/19/2025 1.7 Monocytes Absolute Auto 01/19/2025 0.3 Eosinophils Absolute Auto 01/19/2025 0.1 Basophils Absolute Auto 01/19/2025 0.0 NRBC Abs Auto 01/19/2025 0.000 Vitamin D 25-OH Total 01/19/2025 28.9 (L) HIV AB/AG 01/19/2025 Nonreactive Syphilis Screen 01/19/2025 Nonreactive Ferritin 01/19/2025 67 Iron 01/19/2025 61 Total Iron Binding [place]* 01/19/2025 272 Percent Iron Saturation 01/19/2025 22 Unsaturated Iron Binding 01/19/2025 211 Hepatitis C Antibody 01/19/[address] PCR 01/19/2025 NOT DETECTED NG PCR 01/19/2025 NOT DETECTED Problem List Items Addressed This Visit Menorrhagia with regular cycle Vitamin D deficiency History of peritonsillar abscess Dyslipidemia Other Visit Diagnoses Pharyngitis, unspecified etiology - Primary -rapid strep positive -amoxicillin 500mg bid for 10 days -droplet precautions discussed -supportive care discussed -ER precautions given Relevant Medications cephalexin (Keflex) 500 MG capsule Other Relevant Orders POCT Rapid Strep A BROWER ID NOW (Completed) Encounter for immunization Relevant Medications cephalexin (Keflex) 500 MG capsule Other Relevant Orders HEPATITIS B VACCINE ADULT 20 yrs + (Completed) Lower abdominal pain Relevant Orders US Pelvis Transvaginal Us Pelvis complete Follow up in about 1 year (around 02/28/2026) for physical after 01/19/26. I, Akua Jenkins, am serving as a scribe to document services personally performed by Dr. Lauren, based on the patient's response to questions by provider and providers statements to me. documented in this encounter Plan of Treatment Scheduled Orders Name Type Priority Associated Diagnoses Orde r Schedule Us Pelvis complete Imaging Routine Lower abdominal pain Expected: 02/28/2025, Expires: 02/28/2026 documented as of this encounter Procedures Procedure Name Priority Date/Time Associated Diagnosis Comments US PELVIS TRANSVAGINAL Routine 06/12/2025 3:03 PM EDT Lower abdominal pain POC BROWER ID NOW STREP A Routine 02/28/2025 11:51 AM EDT Pharyngitis, unspecified etiology documented in this encounter Results * US Pelvis Transvaginal (06/12/2025 3:03 PM EDT) Anatomical Region Laterality Modality Pelvis Ultrasound 06/12/2025 3:03 PM EDT Narrative 06/12/2025 3:51 PM EDT [place] [address] Ultrasound Report Signed Patient: Hardik Hester MR#: [id number] : 1985 Acct:[id number] Age/Sex: 39 / F ADM Date: 06/12/25 Loc: HO.US Attending Dr: Claudia Prieto MD Ordering Physician: Claudia Prieto MD Date of Service: 06/12/25 Procedure(s): US pelvic and transvaginal Accession Number(s): [id number] cc: Claudia Prieto MD Reason for Exam: mid lower abd/pelvic pain EXAMINATION: US PELVIS TRANSABDOMINAL AND TRANSVAGINAL HISTORY: mid lower abd/pelvic pain COMPARISON: Comparison is made with the prior examination dated 02/17/2018. TECHNIQUE: Transabdominal and endovaginal real-time 2D de jesus-scale ultrasound was performed. FINDINGS: Uterus: The uterus is normal in size, measuring 8.2 x 4.7 x 5.6 cm. Myometrium has a normal echotexture. No fibroids are identified. Endometrium: The endometrial stripe measures 18 mm in thickness. Right ovary: The right ovary measures 2.1 x 1.3 x 1.4 cm. The right ovary is normal in size and echotexture. Left ovary: The left ovary measures 3.5 x 2.5 x 2.7 cm. There is a 3.1 x 1.8 x 2.2 cm complex hypoechoic structure demonstrating internal echoes which may represent a hemorrhagic cyst or endometrioma. Pelvic fluid: none. US/US pelvic and transvaginal IMPRESSION: 3.1 x 1.8 x 2.2 cm complex appearing hypoechoic structure in the left ovary which may represent a hemorrhagic cyst or endometrioma. Follow-up is recommended in 6 weeks, at a different time in the patient's menstrual cycle, to document resolution. Electronically signed by: Markus Contreras MD 06/12/2025 03:48 PM EDT RP Dictated By: Markus Contreras MD Signed By: <Electronically signed by Markus Contreras MD in OV> 06/12/25 1548 DD/ 1503 TD/TT: 06/12/25 1517 Chain Saw Driver: Procedure Note Donotuseinterpreter, Image - 06/12/2025 [place] [address] Ultrasound Report Signed Patient: Hardik Hester#: [id number] : 1985Acct:[id number] Age/Sex: 39 / FADM Date: 06/12/25 Loc: HO.US Attending Dr: Claudia Prieto MD Ordering Physician: Claudia Prieto MD Date of Service: 06/12/25 Procedure(s): US pelvic and transvaginal Accession Number(s): [id number] cc: Claudia Prieto MD Reason for Exam: mid lower abd/pelvic pain EXAMINATION: US PELVIS TRANSABDOMINAL AND TRANSVAGINAL HISTORY: mid lower abd/pelvic pain COMPARISON: Comparison is made with the prior examination dated 02/17/2018. TECHNIQUE: Transabdominal and endovaginal real-time 2D de jesus-scale ultrasound was performed. FINDINGS: Uterus: The uterus is normal in size, measuring 8.2 x 4.7 x 5.6 cm. Myometrium has a normal echotexture. No fibroids are identified. Endometrium: The endometrial stripe measures 18 mm in thickness. Right ovary: The right ovary measures 2.1 x 1.3 x 1.4 cm. The right ovary is normal in size and echotexture. Left ovary: The left ovary measures 3.5 x 2.5 x 2.7 cm. There is a 3.1 x 1.8 x 2.2 cm complex hypoechoic structure demonstrating internal echoes which may represent a hemorrhagic cyst or endometrioma. Pelvic fluid: none. US/US pelvic and transvaginal IMPRESSION: 3.1 x 1.8 x 2.2 cm complex appearing hypoechoic structure in the left ovary which may represent a hemorrhagic cyst or endometrioma. Follow-up is recommended in 6 weeks, at a different time in the patient's menstrual cycle, to document resolution. Electronically signed by: Markus Contreras MD 06/12/2025 03:48 PM EDT RP Dictated By: Markus Contreras MD Signed By: <Electronically signed by Markus Contreras MD in OV> 06/12/25 1548 DD/ 1503 TD/TT: 06/12/25 1517 Chain Saw Driver: Claudia Prieto MD IM US PROCEDURES Final Re sult * (ABNORMAL) POCT Rapid Strep A BROWER ID NOW (02/28/2025 11:51 AM EDT) Rapid Strep A Screen Positive( A) Negative, None Detected QC Media Lot # [id number] Lot# Expiration Date 6 Swab 02/28/2025 11:5 1 AM EDT Claudia Prieto MD POINT OF CARE TEST ENTER/E DIT ORDERABLES Final Result documented in this encounter Visit Diagnoses Diagnosis Pharyngitis, unspecified etiology- Primary Menorrhagia with regular cycle Vitamin D deficiency History of peritonsillar abscess Dyslipidemia Other and unspecified hyperlipidemia Encounter for immunization Lower abdominal pain Abdominal pain, other specified site Left tubo-ovarian abscess documented in this encounter Additional Health Concerns Assessment Noted Time PHQ-9 Depression Total Score: 0 01/20/20 25 9:12 AM EDT documented as of this encounter Care Teams Chart Picker Relationship Specialty Start Date End Date [place], MD Claudia [address] [place] [address] PCP - General Family Medicine 10/04/18 Ivis Medel, DO [address] [place] [address] Gynecology 10/17/24 documented as of this encounter
--- NOTE | ~2025-06-12 | US_ITS ---
EXAMINATION: US PELVIS TRANSABDOMINAL AND TRANSVAGINAL HISTORY: mid lower abd/pelvic pain COMPARISON: Comparison is made with the prior examination dated 02/17/2018. TECHNIQUE: Transabdominal and endovaginal real-time 2D de jesus-scale ultrasound was performed. FINDINGS: Uterus: The uterus is normal in size, measuring 8.2 x 4.7 x 5.6 cm. Myometrium has a normal echotexture. No fibroids are identified. Endometrium: The endometrial stripe measures 18 mm in thickness. Right ovary: The right ovary measures 2.1 x 1.3 x 1.4 cm. The right ovary is normal in size and echotexture. Left ovary: The left ovary measures 3.5 x 2.5 x 2.7 cm. There is a 3.1 x 1.8 x 2.2 cm complex hypoechoic structure demonstrating internal echoes which may represent a hemorrhagic cyst or endometrioma. Pelvic fluid: none. US/US pelvic and transvaginal IMPRESSION: 3.1 x 1.8 x 2.2 cm complex appearing hypoechoic structure in the left ovary which may represent a hemorrhagic cyst or endometrioma. Follow-up is recommended in 6 weeks, at a different time in the patient's menstrual cycle, to document resolution. Electronically signed by: Markus Contreras MD 06/12/2025 03:48 PM EDT
--- OUTSIDE RECORDS SUMMARY | 2025-06-12 17:20 | XMS_ITS | Clinical Summary ---
Author Organization [facility] Address [address] [place] [phone] Phone Care Team Providers Care Nipple Machine Operator Name Role Phone Claudia Prieto MD Primary Care Provider +1- [phone] Surgical History Surgery Date Site/Laterality Comments ECTOPIC [...] Value Date Recorded Sex Assigned at Female 03/02/2025 9:09 AM EDT Legal Sex Female 8:57 PM EST Gender Identity Female 03/02/2025 9:09 AM EDT Sexual Orientation Straight 03/02/2025 9: 09 AM EDT Obstetrics History Plan of Treatment Health Maintenance Due Date Last Done Comments DTaP,Tdap,and Td Vaccines (1 - Tdap) 2005 Hepatitis B Vaccines (1 of 3 - 19+ 3-dose series) 2005 Cervical Cancer Screening: P ap Smear 12/12/2007 HIV Screening 10/29/2023 Hepatitis C Screening 10/29/2023 Social Influencers of Health Screening 10/29/2023 Depression Screening 10/04/2024 COVID-19 Vaccine (1 - 2023-2 5 season) 2025 Influenza Vaccine (#1) 2025 HIB Vaccines Aged Out No longer [...] 5 Years) and At-Risk Patients (6 to 49 Years) Aged Out No longer eligible b ased on patient's age to complete this topic RSV Immunization Patients Un helen 20 months Aged Out No longer eligible b ased on patient's age to complete this topic Varicella Vaccines Aged Out No longer eligible based on patient's age to complete this topic Insurance MEDICAID - [place] Care Teams Nipple Machine Operator Relationship Specialty Start Date End Date Ida, MD Claudia [address] [phone] PCP - General Family Medicine 03/16/25
--- OUTSIDE RECORDS SUMMARY | 2025-06-12 17:20 | XMS_ITS | Clinical Summary ---
Author Organization [employer] Address [address] [facility] [address] [place] [address] Care Team Providers Care Market Development Analyst Name Role Phone Claudia Prieto MD Primary Care Provider [phone]- [phone] Allergies Active Allergy Reactions Criticality Noted Date Comments Penicillins Rash Low 09/10/2022 Medications simethicone (Mylicon) 80 MG chewable tablet CHEW 2 TABLETS BY MOUTH 3 TIMES A DAY NEEDED Active Active Problems Problem Noted Date Diagnosed Date History of peritonsillar abscess 01/19/2025 Overview (01/19/2025): [facility]en [facility] 01/[facility]25 for significant peritonsillar abscess, with trismus and uvula shift. Sent to [facility] ED, treated with abx. Vitamin D deficiency 01/19/2025 Overview (02/28/2025): Lab Results Component Value Date [id number] 28.9 (L) 01/19/2025 -ordered Vit D level 01/19/25 -Start vitamin D 1000 international units 01/19/25 Assessment & Plan (01/19/2025 9:34 AM EDT): -ordered Vit D level 01/19/25 Menorrhagia with regular cycle 01/19/2025 Overview (02/28/2025): Reports really heavy cycles with significant cramping, though still regular. -prescribed ibuprofen 600 MG and recommended taking in anticipation of menstruating. -ordered labs 01/19/25, significant for low vitamin D, started on supplementation. Assessment & Plan (01/19/2025 9:47 AM EDT): Reports really heavy cycles with significant cramping, though still regular. -prescribed ibuprofen 600 MG and recommended taking in anticipation of menstruating. -ordered labs 01/19/25 Screening mammogram for breast cancer 01/19/2025 Dyslipidemia 01/19/2025 Overview (02/28/2025): Lab Results Component Value Date CHOL 173 01/19/2025 CHOL 212 (H) 07/08/2023 TRIG 53 01/19/2025 TRIG 84 07/08/2023 HDL 38 (L) 01/19/2025 HDL 47 07/08/2023 LDLCHOLCAL 125 (H) 01/19/2025 LDLCHOLCAL 149 (H) 07/08/2023 -continue lifestyle modification -ordered repeat FLP + HFP 01/19/25, improved Assessment & Plan (01/19/2025 9:39 AM EDT): Lab Results Component Value Date CHOL 212 (H) 07/08/2023 TRIG 84 07/08/2023 HDL 47 07/08/2023 LDLCHOLCAL 149 (H) 07/08/2023 -continue lifestyle modification -ordered repeat FLP + HFP 01/19/25 Hydrosalpinx 01/05/2025 Pap smear for cervical cancer screening 11/16/19 Overview (02/28/2025): 10/17/2019 NILM, HPV- 01/19/25 NILM, HPV- Next due 2029 Assessment & Plan (01/19/2025 9:34 AM EDT): 10/17/2019 NILM, HPV- 01/19/25 Pap with HPV testing done -STI testing offered, PreP offered -Preventative care and harm reduction discussed Left tubo-ovarian abscess 02/15/2024 Overview (06/12/2025): Seen in ER 02/13/24 for abdominal pain, diagnosed with left tubo ovarian abscess. Seen by [facility] in ER and started on antibiotics with recommend follow up with [facility] as outpatient. Pelvic US IMPRESSION: A complex [...] of the female pelvis with IV contrast. US 06/12/25 US/US pelvic and transvaginal IMPRESSION: 3.1 x 1.8 x 2.2 cm complex appearing hypoechoic structure in the left ovary which may represent a hemorrhagic cyst or endometrioma. Follow-up is recommended in 6 weeks, at a different time in the patient's menstrual cycle, to document resolution. Deformity of bone of foot 07/01/2023 Left foot pain 07/01/2023 Overview (07/01/2023): Podiatry referral done 07/01/2023 Assessment & Plan (07/01/2023 10:34 AM EDT): Podiatry referral done 07/01/2023 Other specified health status 06/24/2023 Overview (01/19/2025): -next comprehensive annual evaluation due after 01/19/26 -eye care facilitated by [facility] -dental home is [facility] care proxy filed 01/19/25 Assessment & Plan (01/19/2025 9:33 AM EDT): -next comprehensive annual evaluation due after 01/19/26 -eye care facilitated by [facility] -dental ridge is [facility] care proxy filed 01/19/25 Assessment & Plan (07/01/2023 10:21 AM EDT): -next physical exam due after 07/01/2024 -eye care facilitated by -dental home is [facility] 06/20/2012 Depressive disorder 06/20/2012 Overview (06/24/2023): No suicidal or homicidal ideation. Referral for psychotherapy and psychiatry offered. -start fluoxetine 20mg po daily 07/23/16 -seen by [facility] to establish with therapist Assessment & Plan (01/19/2025 9:50 AM EDT): No suicidal or homicidal ideation. Referral for psychotherapy and psychiatry offered. -start fluoxetine 20mg po daily 07/23/16 -seen by [facility] to establish with therapist Assessment & Plan (06/24/2023 9:34 AM EDT): No suicidal or homicidal ideation. Referral for psychotherapy and psychiatry offered. -start fluoxetine 20mg po daily 07/23/16 -seen by [facility] to establish with therapist Gastroesophageal reflux disease 06/20/2012 Knee pain 06/20/2012 Resolved Problems Problem Noted Date Diagnosed Date Resolved Date Bacterial vaginosis 07/01/2023 10/17/19 25 Dental caries 09/10/2022 10/17/2024 Encounters Date Type Department Care Team Description 05/02/2025 9:00 AM EDT Office Visit [facility] [place] [address] Britton, Ama, OD Myopia of both eyes (Primary Dx) 05/02/2025 Travel from Last 3 Months Immunizations Immunization Administration Dates Next Due Hep B, adult 02/28/2025,01/19/2025 Influenza injectable quadriv alent IIV4 with preservative [...] want or need it 01/02 Comments No Intention Date Recorded No desire to become (finding) 0 01/19/2025 Sex and Gender Information Value Date Recorded [...] 18 02/28/2025 11:11 AM EDT Oxygen Saturation 96% 01/19/2025 9:09 AM EDT Inhaled Oxygen Concentration - - Weight 71.3 kg (157 lb 2 oz) 02/28/2025 11:11 AM EDT Height 167.6 cm (5' 6 ) 02/28/2025 11:11 AM EDT Body Mass Index 25.36 02/28/2025 11:11 AM EDT Plan of Treatment Health Maintenance Due Date Last Done Comments Dental Oral Exam 1985 Dental Prophylaxis 1985 Dental X-Ray: Bitewings 1985 Dental X-Ray: Full Mouth 1985 HPV Vaccines (1 - 3-dose series) 2001 Influenza Vaccine (#1) 2025 , 10/05/2019, 07/23/2016, Additional history exists Hepatitis B Vaccines (3 of 3 - 19+ 3-dose series) 07/21/2025 02/28/2025, 01/19/2025 Alcohol/Substance Use Screening 01/19/2026 01/19/2025 Depression Screening 01/19/2026 01/19/2025, 01/20/20 Family Planning (PISQ) 01/19/2026 01/19/2025 SDOH Screening 01/19/2026 01/19/2025 Disability Screening 02/28/2026 02/28/2025 Tobacco Screening 03/12/2026 03/12/2025 Cervical Cancer Screening 01/19/2030 HPV/Cotest 01/19/2030 01/19/2025, 10/05/2019 Pap Smear 01/19/2030 01/19/2025, 10/17/2019 DTaP/Tdap/Td Vaccines (3 - Td or Tdap) [...] Years) and At-Risk Patients (6 to 49) Years Aged Out No longer eligible based on [...] 06/12/2025 3:03 PM EDT Lower abdominal pain HEPATITIS C AB W/REFL TO HCV RNA, QN, PCR Routine 01/19/2025 9:57 AM EDT Routine screening for STI (sexually transmitted infection) HIV 1/2 ANTIGEN/ANTIBODY, FOURTH GENERATION W/RFL Routine 01/19/2025 9:57 AM EDT Routine screening for STI (sexually transmitted infection) HPV DNA, LOW/HIGH RISK Routine 01/19/2025 12:00 AM EDT Vitamin D deficiency PAP SMEAR Routine 01/19/2025 12:00 AM EDT Pap smear for cervical cancer screening from Last 3 Months or Most Recently Relevant to Health Maintenance Results * US Pelvis Transvaginal (06/12/2025 3:03 PM EDT) Anatomical Region Laterality Modality Pelvis Ultrasound 06/12/2025 3:03 PM EDT Narrative 06/12/2025 3:51 PM EDT [address] [address] Ultrasound Report Signed Patient: Hardik Hester MR#: [id number] : 1985 Acct:[id number] Age/Sex: 39 / F ADM Date: 06/12/25 Loc: HO.US Attending Dr: Claudia Prieto MD Ordering Physician: Claudia Prieto MD Date of Service: 06/12/25 Procedure(s): US pelvic and transvaginal Accession Number(s): [id number] cc: Claudia Prieto MD Reason for Exam: [...] Markus Contreras MD 06/12/2025 03:48 PM EDT Dictated By: Markus Contreras MD Signed By: <Electronically signed by Markus Contreras MD in OV> 06/12/25 1548 DD/ 1503 TD/TT: 06/12/25 1517 3Rd Grade Reading Teacher: Procedure Note Donotuseinterpreter, Image - 06/12/[address] [address] Ultrasound Report Signed Patient: Hardik Hester#: [id number] : 1985Acct:[id number] Age/Sex: 39 / FADM Date: 06/12/25 Loc: HO.US Attending Dr: Claudia Prieto MD Ordering Physician: Claudia Prieto MD Date of Service: 06/12/25 Procedure(s): US pelvic and transvaginal Accession Number(s): [id number] cc: Claudia Prieto MD Reason for Exam: [...] Markus Contreras MD 06/12/2025 03:48 PM EDT Dictated By: Markus Contreras MD Signed By: <Electronically signed by Markus Contreras MD in OV> 06/12/25 1548 DD/ 1503 TD/TT: 06/12/25 1517 3Rd Grade Reading Teacher: Claudia Prieto MD IMG US PROCEDURES Final Re sult * Hepatitis C Antibody with Reflex to HCV, RNA, Quantitative, Real-Time PCR (01/19/2025 9:57 AM EDT) Hepatitis C Antibody Nonreactive Nonreactive [facility] Comment:Antibodies to HCV no t detected; does not exclude early acuteHCV infection. Blood Venous blood specimen / Unknown 01/19/2025 9:57 AM EDT 01/19/2025 11:05 AM EDT Claudia Prieto MD LAB BLOOD ORDERABLES Final Result Performing Organization Address City/[facility]/ZIP Co de Phone Number [facility] [address] [place] [phone] * HIV-1/2 Antigen and Antibodies, Fourth Generation, with Reflexes (01/19/2025 9:57 AM EDT) HIV AB/AG Nonreactive Nonreactive [facility] Comment:HIV-1 p24 Ag and/or HIV-1/HIV-2 Ab not detected.A test result that is nonreactive does not exclude thepossibility of exposure to or infection with HIV-1 and/orHIV-2. Nonreactive results in this assay for individualswith prior exposure to HIV-1 and/or HIV-2 may be due toantigen and antibody levels that are below the limit ofdetection of this assay.The De CorrespondentniDropmysite HIV Ag/Ab Combo assay result andsupplemental assay results should be interpreted inconjunction with the patient's clinical presentation,history and other laboratory results. If the results areinconsistent with clinical evidence, additional testing issuggested to confirm the result. Blood Venous blood specimen / Unknown 01/19/2025 9:57 AM EDT 01/19/2025 11:05 AM EDT Claudia Prieto MD LAB BLOOD ORDERABLES Final Result [facility] [address] [place] [phone] * HPV DNA, Low/High Risk (01/19/2025 12:00 AM EDT) HPV High Risk Negative Negative [facility] HPV Genotype 16 Negative Negative [facility] HPV Genotype 18 Negative Negative [facility] Comment:HPV testing performe d at [facility] (CLIA#[id number]), [address] [place] [phone].Testing for HPV was performed using the [employer] MARY Nomi0system. The presence of HPV in the female genital tract isassociated with a number of diseases, including cervicalcarcinoma. The HPV DNA high risk pool tests for HPV 31, 33,35, 39, 45, 51, 52, 56, 58, 59, 66 and 68. The testing forHPV 16 and 18 genotypes has also been performed. A positiveresult indicates detection of nucleic acid sequences fromone or more subtypes, whereas a negative result indicatessuch sequences were not detected. 01/19/2025 01/23/2025 9:2 0 AM EDT Claudia Prieto MD LAB BLOOD ORDERABLES Final Result Performing Organization Address [facility] de Phone Number [facility] [address] [place] [phone] * Pap Smear (01/19/2025 12:00 AM EDT) Swab (Vaginal Swab) 01/19/2025 01/23/2025 9:20 AM EDT Narrative [facility] - 01/29/2025 12:55 PM EDT ----- ------- Name: Hardik Hester Age/Sex: 39/F : 1985 Unit#: [id number] Attend Dr: Claudia Prieto MD Re01/19/25 Status: [facility] REF Location: [facility] Disch: ----- ------- SPEC : [id number] RECD: 01/23/25 STATUS: [facility] NUM: [id number] RUDY: 01/19/25-[address] [facility] [address]: Claudia Prieto MD ENTERED: 01/23/25 SP TYPE: Pap Smr OT DR: ORDERED: Pap Smear Interpretation Satisfactory for evaluation. Specimen has been reprocessed with acid wash. Negative for intraepithelial lesion or malignancy. HPV High Risk: Negative HPV Genotyping 16: Negative HPV Genotyping 18: Negative Clinical Information LMP: Unknown date Previous PAP test: Over five years ago, [facility] Material Received ThinPrep-Vaginal ----- ------- Signed (signature on file) [facility] 01/29/25 1255 ----- ------- END OF REPORT Claudia Prieto MD LAB CYTOLOGY ORDERABLES Fi nal Result [facility] [address] [place] [phone] from Last 3 Months or Most Recently Relevant to Health Maintenance Insurance [facility] STANDARD DENTAL-[facility] MEDICAID STAND ADULT Advance Directives Documents on File Type Date Recorded Patient Faculty Physician Expl anation Advance Directives and Living Will 01/24/2025 [facility] Care Proxy 01/19/25 Care Teams Market Development Analyst Relationship Specialty Start Date End Date [place], MD Claudia [address] [place] [phone] PCP - General Family Medicine 10/04/18 Ivis Medel, DO [address] [place] [address] Gynecology 10/17/24
--- OUTSIDE RECORDS SUMMARY | 2025-06-12 17:20 | XMS_ITS | Encounter Summary ---
Author Organization [employer] Address [address] [facility] 7[address] [place] [address] Care Team Providers Care Dry Wall Plasterer Name Role Phone Claudia Prieto MD Primary Care Provider +1- [phone] Encounter Details Date Type Department Care Team (Late st Contact Info) Description 11/10/2022 Abstract [facility] [address] [place], [place] [phone] Claudia Prieto MD [address] [place], [place] [phone] Social History Tobacco Use Types Packs/Day Years [...] as of this encounter Plan of Treatment Not on file documented as of this encounter Procedures Procedure Name Priority Date/Time Associated Diagnosis Comments PAP SMEAR Routine 10/17/2019 12:00 AM EST documented in this encounter Results * Pap Smear (10/17/2019 12:00 AM EST) Swab us Historical Provider LAB CYTOLOGY ORDERABLES F inal Result IMAGING documented in this encounter Visit Diagnoses Not on filedocumented in this encounter Care Teams Dry Wall Plasterer Relationship Specialty Start Date End Date Claudia Prieto MD [address] [place] [address] PCP - General Family Medicine 10/04/18 Ivis Medel, [address] [place] [phone] Gynecology 10/17/24 documented as of this encounter
--- OUTSIDE RECORDS SUMMARY | 2025-06-12 17:20 | XMS_ITS | Encounter Summary ---
Author Organization [employer] Address [address] [place] [address] [address] [place] [address] Care Team Providers Care Uptwist Spinner Name Role Phone Claudia Prieto MD Primary Care Provider +1- [phone] Encounter Details Date Type Department Care Team (Latest Contact Info) Description 02/11/2021 Abstract [facility] Dental, Provider, DDS Social History Tobacco [...] on file documented as of this encounter Visit Diagnoses Not on filedocumented in this encounter Care Teams Uptwist Spinner Relationship Specialty Start Date End Date Claudia Prieto MD [address] [place] [phone] PCP - General Family Medicine 10/04/18 Ivis Medel, DO [address] [place] [address] Gynecology 10/17/24 documented as of this encounter
== END 2025-06-12 14:53 | disposition home or self-care (01) ==
LOC: HO.US 14:52
PROVIDERS: PCP Family Medicine; Visit Provider Family Medicine
DX: R10.30 Lower abdominal pain, unspecified (principal)
CPT/HCPCS: 76830; 76856

== ENCOUNTER → 2025-06-12 14:54 | Outpatient (BNV) | payer MEDICAID, SELFPAY | PROVIDERS: PCP Family Medicine; Visit Provider Radiology Diagnostic Radiology | DX: R10.2 Pelvic and perineal pain (principal); R10.30 Lower abdominal pain, unspecified | CPT/HCPCS: 76830; 76856 ==